=== PATIENT | male | born 1975 | race Caucasian/White ===

== ENCOUNTER 2016-09-18 16:57 | Emergency (ER) | payer SELFPAY ==
[~2016-09-18] VITALS: Ht 175.3 cm; Wt 88.0 kg
[~2016-09-18 16:57] MED LIST: ALTOPREV20 MG PO; AMOXICILLIN 50500 MG PO; AMOXICILLIN875 MG PO; CELEXA 20MG20 MG/TAB PO; CLEOCIN HC150 MG/CAP PO; CLONIDINE0.1 MG PO; DARVOCET N 101 UDTAB PO; DILAUDID 2MG TAB2 MG PO; FLAGYL500 MG PO; GENTAMICIN EYE D5 ML OS; HUMALOG PEN100 U/ML SC; LANTUS100 U/ML; LANTUS100 U/ML SC; NO HOME MEDICATIONS; NORCO 325 MG-51 TAB PO; NOVOLOG 100U100 U/M1 SC; NOVOLOG 100U100 U/M1 SQ; NOVOLOG FLEX100 U/ML SC; OXY IR5 MG PO; OXYCONTIN 10MG10 MG PO; PEN-VEE K500 MG PO; PERCOCET 325 MG1 TA2 PO; PHENERGAN 25 TA25 MG PO; PRILOTC PO; ROBITUSSIN-AC 160 ML PO; ROXICODONE 55 MG/TAB PO; SEPTRA DS 8001 TAB PO; ZOFRAN 4MG T4 MG/TAB PO
[2016-09-18 17:01] VITALS: TEMP 98.1
[2016-09-18] MEDS ORDERED: SEPTRA DS 8001 TAB PO (18:38)
[2016-09-18] MEDS ORDERED: NORCO 325 MG-51 TAB PO (18:38)
[2016-09-18 18:56] VITALS: BP 128/87; PULSE 97
== END 2016-09-18 18:56 | disposition home or self-care (01) ==
LOC: COL.ER 16:57
DX: L02.416 Cutaneous abscess of left lower limb (principal); L03.116 Cellulitis of left lower limb

== ENCOUNTER 2017-04-24 00:21 | Emergency (ER) | payer SELFPAY ==
[~2017-04-24] VITALS: Ht 175.3 cm; Wt 78.4 kg
[2017-04-24 00:31] VITALS: BP 126/74; PULSE 102; TEMP 98.2
[2017-04-24] MEDS ORDERED: CLEOCIN HCL300 MG PO (18:00)
== END 2017-04-24 03:11 | disposition left against medical advice (07) ==
LOC: COL.ER 00:21
DX: R23.4 Changes in skin texture (principal)

== ENCOUNTER 2017-04-24 16:27 | Emergency (ER) | payer SELFPAY ==
[~2017-04-24] VITALS: Ht 175.3 cm; Wt 78.2 kg
[2017-04-24 16:28] VITALS: TEMP 98.1
[2017-04-24 17:48] LABS: BASO % 0.2 % (0.0-2.0); EOS # 0.1 (0.0-0.7); EOS % 0.8 % (0-4.0); GRAN # 4.2 (1.4-6.5); HEMATOCRIT 38.6 % (42.0-52.0); HEMOGLOBIN 13.3 g/dl (13.5-18.0); LYMPH # 1.5 (1.2-3.4); LYMPH % 23.8 % (20.0-51.0); MEAN CELL VOLUME 86 fl (80.0-100.0); MEAN CORPUSCULAR HEMOGLOBIN 30 pg (27.0-31.0); MEAN CORPUSCULAR HGB CONC 35 g/dl (33.0-37.0); MEAN PLATELET VOLUME 10.2 fl (7.4-10.4); MONO # 0.6 (0.1-0.6); PLATELET COUNT 133 K/mm3 (130-400); RED BLOOD COUNT 4.49 M/mm3 (4.20-5.60); REDCELL DISTRIBUTION WIDTH-CV 12.1 % (11.5-14.5); WHITE BLOOD COUNT 6.4 K/mm3 (4.8-10.8)
[2017-04-24] MEDS ORDERED: CLEOCIN HCL300 MG PO (18:00)
[2017-04-24 18:04] LABS: ADJUSTED CALCIUM 9.1 mg/dL (8.4-10.2); ALANINE AMINOTRANSFERASE 25 U/L (21-72); ALKALINE PHOSPHATASE 268 U/L (50-136); ANION GAP 13 mmol/L (7-16); BILIRUBIN,TOTAL 0.7 mg/dL (0.0-1.0); BLOOD UREA NITROGEN 11 mg/dL (9-20); CALCIUM 9.1 mg/dL (8.4-10.2); CARBON DIOXIDE 22 mmol/L (22-30); CHLORIDE 92 mmol/L (98-107); POTASSIUM 4.7 mmol/L (3.4-5.0); SODIUM 127 mmol/L (137-145); TOTAL PROTEIN 7.3 gm/dL (6.4-8.2)
[2017-04-24 18:10] LABS: GLUCOSE 709 mg/dL (74-106)
[2017-04-24 18:24] LABS: C-REACTIVE PROTEIN 12.9 mg/dL (0.0-0.9)
[2017-04-24 22:30] VITALS: BP 115/72; PULSE 87
== END 2017-04-24 22:30 | disposition home or self-care (01) ==
LOC: COL.ER 16:27
PROVIDERS: Physician Assistant
DX: S56.408A Unspecified injury of extensor muscle, fascia and tendon of left little finger at forearm level, initial encounter (principal); E11.65 Type 2 diabetes mellitus with hyperglycemia; L02.512 Cutaneous abscess of left hand; M20.012 Mallet finger of left finger(s); F17.210 Nicotine dependence, cigarettes, uncomplicated; Z79.4 Long term (current) use of insulin; W23.0XXA Caught, crushed, jammed, or pinched between moving objects, initial encounter
CPT/HCPCS: J1815; J7030

== ENCOUNTER 2017-10-17 01:40 | Emergency (ER) | payer SELFPAY ==
[~2017-10-17] VITALS: Ht 175.3 cm; Wt 75.0 kg
[~2017-10-17 01:40] MED LIST changes: +CLEOCIN HCL300 MG PO
[2017-10-17 01:45] VITALS: TEMP 97.7
[2017-10-17 02:32] LABS: BASO % 0.2 % (0.0-2.0); EOS % 0.3 % (0-4.0); GRAN # 6.6 (1.4-6.5); GRAN % 67.6 % (42.2-75.2); HEMATOCRIT 43.4 % (42.0-52.0); HEMOGLOBIN 14.8 g/dl (13.5-18.0); LYMPH # 2.1 (1.2-3.4); LYMPH % 21.7 % (20.0-51.0); MEAN CELL VOLUME 85 fl (80.0-100.0); MEAN CORPUSCULAR HEMOGLOBIN 29 pg (27.0-31.0); MEAN CORPUSCULAR HGB CONC 34 g/dl (33.0-37.0); MEAN PLATELET VOLUME 9.3 fl (7.4-10.4); MONO # 0.9 (0.1-0.6); MONO % 9.7 % (1.7-9.3); PLATELET COUNT 245 K/mm3 (130-400); RED BLOOD COUNT 5.11 M/mm3 (4.20-5.60); REDCELL DISTRIBUTION WIDTH-CV 11.9 % (11.5-14.5)
[2017-10-17 02:42] LABS: ACETONE,SERUM SMALL
[2017-10-17 02:45] LABS: ALANINE AMINOTRANSFERASE 36 U/L (21-72); ALBUMIN 4.4 gm/dL (3.5-5.0); ALKALINE PHOSPHATASE 201 U/L (50-136); ANION GAP 14 mmol/L (7-16); AST,SGOT 18 U/L (15-37); BILIRUBIN,TOTAL 0.7 mg/dL (0.0-1.0); BLOOD UREA NITROGEN 14 mg/dL (9-20); C-REACTIVE PROTEIN 6.6 mg/dL (0.0-0.9); CALCIUM 9.8 mg/dL (8.4-10.2); CARBON DIOXIDE 24 mmol/L (22-30); LIPASE 94 U/L (23-300); POTASSIUM 4.7 mmol/L (3.4-5.0); SODIUM 127 mmol/L (137-145); TOTAL PROTEIN 8.3 gm/dL (6.4-8.2)
[2017-10-17 02:46] LABS: GLUCOSE 617 mg/dL (74-106)
[2017-10-17 02:47] LABS: CHLORIDE 89 mmol/L (98-107)
[2017-10-17 02:57] LABS: ERYTHROCYTE SEDIMENTATION RATE 52 mm/hr (0-15)
[2017-10-17] MEDS ORDERED: DOXYCYCLINE 10100 MG PO (03:49)
[2017-10-17 04:02] VITALS: BP 131/84; PULSE 98
== END 2017-10-17 04:01 | disposition home or self-care (01) ==
LOC: COL.ER 01:40
PROVIDERS: Emergency Medicine
DX: L03.116 Cellulitis of left lower limb (principal); L02.416 Cutaneous abscess of left lower limb; E11.65 Type 2 diabetes mellitus with hyperglycemia; F12.90 Cannabis use, unspecified, uncomplicated; Z79.4 Long term (current) use of insulin
CPT/HCPCS: J1815; J7030

== ENCOUNTER 2018-08-27 11:34 | Inpatient (IN) | payer OTHER ==
[~2018-08-27] VITALS: Ht 175.3 cm; Wt 85.0 kg
[~2018-08-27 11:34] MED LIST changes: +DOXYCYCLINE 10100 MG PO
[2018-08-27 12:29] LABS: BASO % 0.4 % (0.0-2.0); EOS # 0.1 (0.0-0.7); EOS % 0.8 % (0-4.0); GRAN # 5.6 (1.4-6.5); GRAN % 73.9 % (42.2-75.2); HEMATOCRIT 38.5 % (42.0-52.0); HEMOGLOBIN 13.3 g/dl (13.5-18.0); LYMPH # 1.2 (1.2-3.4); LYMPH % 15.3 % (20.0-51.0); MEAN CELL VOLUME 84 fl (80.0-100.0); MEAN CORPUSCULAR HEMOGLOBIN 29 pg (27.0-31.0); MEAN CORPUSCULAR HGB CONC 35 g/dl (33.0-37.0); MEAN PLATELET VOLUME 9.2 fl (7.4-10.4); MONO # 0.7 (0.1-0.6); MONO % 9.3 % (1.7-9.3); PLATELET COUNT 207 K/mm3 (130-400); RED BLOOD COUNT 4.57 M/mm3 (4.20-5.60); REDCELL DISTRIBUTION WIDTH-CV 11.8 % (11.5-14.5)
[2018-08-27 12:42] LABS: ALANINE AMINOTRANSFERASE 6 U/L (21-72); ALBUMIN 3.8 gm/dL (3.5-5.0); ALKALINE PHOSPHATASE 175 U/L (50-136); ANION GAP 11 mmol/L (7-16); AST,SGOT 13 U/L (15-37); BILIRUBIN,TOTAL 0.5 mg/dL (0.0-1.0); BLOOD UREA NITROGEN 12 mg/dL (9-20); C-REACTIVE PROTEIN 8.7 mg/dL (0.0-0.9); CALCIUM 9.1 mg/dL (8.4-10.2); CARBON DIOXIDE 25 mmol/L (22-30); CHLORIDE 90 mmol/L (98-107); CREATININE, serum 0.49 mg/dL (0.66-1.25); POTASSIUM 4.6 mmol/L (3.4-5.0); SODIUM 126 mmol/L (137-145); TOTAL PROTEIN 7.5 gm/dL (6.4-8.2)
[2018-08-27 12:52] LABS: GLUCOSE 605 mg/dL (74-106)
[2018-08-27 12:56] LABS: ACETONE,SERUM NEGATIVE
--- NOTE | 2018-08-27 16:00 | NUR ---
Received patient from ED. Right index finger swollen with drainage. No c/o pain in finger. Complained of headache. Numerous dry scabs on hands and legs.
[2018-08-27 16:52] VITALS: BP 148/93; PULSE 100; TEMP 98.6
[2018-08-27 16:55] VITALS: BP 148/93; PULSE 100; TEMP 98.6
--- NOTE | 2018-08-27 17:30 | NUR ---
Orthopedics saw patient. Wound culture done.
--- NOTE | 2018-08-27 20:05 | NUR ---
Pt. laying in bed watching TV at this time. Pt. is A&OX3, assessment complete. IV to lt. forear patent, IV fluids infusing per orders. Pt. reports headache pain at a 5 on pain scale, will give pain meds per orders. Pt. denies further needs, call light within reach.
[2018-08-27 20:13] VITALS: BP 123/65; PULSE 18; TEMP 99
[2018-08-27 22:19] LABS: TRICYCLIC ANTIDEPRESS URINE NEGATIVE
[2018-08-28] VITALS (7 sets, daily range): BP systolic 108–145; BP diastolic 59–88; PULSE 85–100; TEMP 98.1–99.5
--- NOTE | 2018-08-28 06:08 | NUR ---
Pt. slept off and on through the night. Pt. remains A&OX3. IV to lt. forearm remains patent. Dressing to rt. index finger CDI. Pt. denies pain or other needs at this time. Call light within reach.
[2018-08-28 06:42] LABS: BASO % 0.3 % (0.0-2.0); EOS # 0.1 (0.0-0.7); EOS % 1.7 % (0-4.0); GRAN # 3.5 (1.4-6.5); GRAN % 59.8 % (42.2-75.2); HEMOGLOBIN 12.1 g/dl (13.5-18.0); LYMPH # 1.5 (1.2-3.4); LYMPH % 25.8 % (20.0-51.0); MEAN CELL VOLUME 85 fl (80.0-100.0); MEAN CORPUSCULAR HEMOGLOBIN 29 pg (27.0-31.0); MEAN CORPUSCULAR HGB CONC 35 g/dl (33.0-37.0); MEAN PLATELET VOLUME 8.8 fl (7.4-10.4); MONO # 0.7 (0.1-0.6); MONO % 12.2 % (1.7-9.3); PLATELET COUNT 198 K/mm3 (130-400); RED BLOOD COUNT 4.14 M/mm3 (4.20-5.60); REDCELL DISTRIBUTION WIDTH-CV 11.9 % (11.5-14.5)
[2018-08-28 07:01] LABS: CALCIUM 8.6 mg/dL (8.4-10.2); CREATININE, serum 0.46 mg/dL (0.66-1.25); POTASSIUM 3.8 mmol/L (3.4-5.0)
--- NOTE | 2018-08-28 07:30 | NUR ---
Pt AAOx3, states he is "kind of homeless at the moment". Pt has multiple late stage bruises on finger tips that pt does not disclose how they got there. Call light within reach
--- NOTE | 2018-08-28 09:58 | NUR ---
Pt off unit to MRI. IVFluid paused
--- NOTE | 2018-08-28 16:20 | NUR ---
SW met with patient to discuss discharge planning. Patient reports he is homeless and usually stays with random people most nights but doesnt always have someone to stay with. He is against going to the jail due to there being to many rules. Patient has applied for medicaid and disability. SW talked with him about helping get his meds at discharge but following up at the [facility] clinic for PCP and medication help until he gets medicaid. SW will continue to follow.
--- NOTE | 2018-08-28 21:45 | NUR ---
Pt. laying in bed watching TV. Pt. is A&OX3, assessment complete. IV to lt. forearm patent, IV fluids infusing per orders. Dressing to rt. index finger CDI. Pt. denies pain at this time. Call light within reach.
[2018-08-29] VITALS (8 sets, daily range): BP systolic 112–131; BP diastolic 64–84; PULSE 62–100; TEMP 97.4–99.2
[2018-08-29 05:55] LABS: BASO % 0.4 % (0.0-2.0); EOS # 0.1 (0.0-0.7); GRAN # 2.7 (1.4-6.5); GRAN % 52.9 % (42.2-75.2); LYMPH # 1.6 (1.2-3.4); MEAN CELL VOLUME 84 fl (80.0-100.0); MEAN CORPUSCULAR HEMOGLOBIN 28 pg (27.0-31.0); MEAN CORPUSCULAR HGB CONC 34 g/dl (33.0-37.0); MEAN PLATELET VOLUME 9.1 fl (7.4-10.4); MONO # 0.7 (0.1-0.6); MONO % 13.3 % (1.7-9.3); PLATELET COUNT 202 K/mm3 (130-400); RED BLOOD COUNT 4.23 M/mm3 (4.20-5.60); REDCELL DISTRIBUTION WIDTH-CV 11.8 % (11.5-14.5)
[2018-08-29 06:03] LABS: CALCIUM 8.8 mg/dL (8.4-10.2); CREATININE, serum 0.48 mg/dL (0.66-1.25); POTASSIUM 4.3 mmol/L (3.4-5.0)
--- NOTE | 2018-08-29 06:23 | NUR ---
Pt. slept well through the night. Pt. remains A&OX3. IV to rt. ac patent. Pt. reported pain at a 6 on pain scale this am. Gave pain meds per orders. Pt. denies further needs, call light within reach.
[2018-08-29 06:36] LABS: HEMATOCRIT 35.6 % (42.0-52.0)
--- NOTE | 2018-08-29 08:41 | NUR ---
Pt AAOx3. MD Sravan has seen pt - plan for amputation of finger this afternoon. Pt kept NPO.
--- NOTE | 2018-08-29 11:04 | NUR ---
YENY and YENY student attended clinical rounding. Patient going for amputation of finger today. He will need assistance getting diabetes medications until he can go to [facility] clinic. SW to follow.
--- NOTE | 2018-08-29 15:03 | NUR ---
Pt off unit for surgery
--- NOTE | 2018-08-29 16:08 | NUR ---
Telephone report recieved from YADIEL Markham
--- NOTE | 2018-08-29 21:00 | NUR ---
Patient drowsy, IP=[id number]. Patient asking for a sandwich, reports only eating a hamburger for supper. Is alert, flat affect. Has a dry drsg to right hand, CSM intact. Has scabbed fingertips to both hands, patient states "I plead the 5th" when asked what happened to his fingers. Patient has various scars to hands and legs. Voiding without problem and has BM at this time. IV site to right AC with IVF infusing without redness or swelling.
--- NOTE | 2018-08-30 00:21 | NUR ---
Medicated with [place] 5/325mg 2 tabs at this time for 5/10 pain rating to right hand. Ate sandwich and unsweetened applesauce at HS. IV site without redness or swelling, IV antibiotic infusing without problem.
[2018-08-30 04:30] VITALS: BP 152/89; PULSE 90; TEMP 97.6
--- NOTE | 2018-08-30 06:00 | NUR ---
Patient resting in bed, has right hand elevated on pillow. No complaints of pain offered at this time.
[2018-08-30 06:35] LABS: BASO % 0.3 % (0.0-2.0); EOS # 0.1 (0.0-0.7); EOS % 1.3 % (0-4.0); GRAN # 4.7 (1.4-6.5); GRAN % 66.6 % (42.2-75.2); HEMATOCRIT 39.6 % (42.0-52.0); HEMOGLOBIN 13.3 g/dl (13.5-18.0); LYMPH # 1.6 (1.2-3.4); LYMPH % 22.1 % (20.0-51.0); MEAN CELL VOLUME 86 fl (80.0-100.0); MEAN CORPUSCULAR HEMOGLOBIN 29 pg (27.0-31.0); MEAN CORPUSCULAR HGB CONC 34 g/dl (33.0-37.0); MEAN PLATELET VOLUME 8.8 fl (7.4-10.4); MONO # 0.7 (0.1-0.6); MONO % 9.4 % (1.7-9.3); PLATELET COUNT 269 K/mm3 (130-400); RED BLOOD COUNT 4.61 M/mm3 (4.20-5.60); REDCELL DISTRIBUTION WIDTH-CV 11.9 % (11.5-14.5)
[2018-08-30 06:45] LABS: CREATININE, serum 0.54 mg/dL (0.66-1.25); POTASSIUM 4.3 mmol/L (3.4-5.0)
[2018-08-30 07:45] VITALS: BP 136/82; PULSE 95; TEMP 98.7
--- NOTE | 2018-08-30 08:00 | NUR ---
PATIENT IS DROWSY THIS MORNING AND RESTING IN BED. PATIENT IS EASILY AROUSABLE. PATIENT IS A&O. TACHYCARDIA NOTED, OTHERWISE VSS. BOWEL SOUNDS ACTIVE ALL FOUR QUADRANTS. PATIENT TOLERATING FOOD & LIQUIDS WITHOUT ANY COMPLAINTS OF N/V. POSITIVE PEDAL PULSES EQUAL BILATERALLY. RUE DRESSED WITH A SPLINT AND LUZ MARIA WRAP. RUE DRESSING IS CD&I. CAP REFILL <3 SECONDS. CMS INTACT. IV FLUIDS INFUSING TO RIGHT AC IV VIA PUMP. CALL LIGHT WITHIN REACH. BREAKFAST TRAY ORDERED. PATIENT DENIES ANY OTHER NEEDS AT THIS TIME.
[2018-08-30] MEDS ORDERED: FREESTYLE PREC1 EAC5 MC (09:35)
[2018-08-30] MEDS ORDERED: GLUCOSE TEST ST1 DEV MC (09:35)
[2018-08-30] MEDS ORDERED: HUMULIN 70/3100 U/M1 SQ (09:37)
[2018-08-30] MEDS ORDERED: [UNRECOGNIZED DRUG - OTHER] SQ (09:37)
[2018-08-30] MEDS ORDERED: INSULIN SYRING1 EA12 SQ (09:38)
[2018-08-30] MEDS ORDERED: LANCETS MC (09:39)
--- NOTE | 2018-08-30 11:24 | NUR ---
YENY and YENY student attended clinical rounding. Patient is dc today and reports he has somewhere to stay. talked with him about diabetes medications and he reports he has never used a vial only the pens. Nurse will educate him on how to use one. YENY and pharmacy are working on at least a weeks supplies until his appointment at [facility].
[2018-08-30 11:42] VITALS: BP 135/80; PULSE 93; TEMP 98.2
[2018-08-30] MEDS ORDERED: THE MEDICINE SH1 DE3 MC (12:20)
--- NOTE | 2018-08-30 13:00 | NUR ---
PATIENT'S RIGHT FOREARM IV DC'D PER PENDING DISCHARGE. PATIENT TOLERATED WELL.
[2018-08-30] MEDS ORDERED: LANTUS SOLOS100 U/ML SQ (13:31)
[2018-08-30] MEDS ORDERED: HUMALOG PEN100 U/ML SQ (13:31)
--- NOTE | 2018-08-30 14:23 | NUR ---
DISCHARGE INSTRUCTIONS REVIEWED WITH PATIENT. DIABETIC EDUCATION COMPLETE. PATIENT PERSONAL BELONGINGS GATHERED. PATIENT TAKE TO PERSONAL VEHICLE VIA WHEELCHAIR BY SURGICAL STAFF. PATIENT DISCHARGED.
--- NOTE | 2018-08-30 15:12 | NUR ---
Patient has an appointment at the Diabetes clinic for 3pm today to get samples of insulin to get him through till his appointment [facility] the [facility]. YENY faxed a med voucher to [facility] for a glucometer and test strips for patient. Patient knows the importance of following up with [facility] to get the needed medications. He reports he has somewhere to stay tonight but did not specify. Patient dc today.
== END 2018-08-30 14:23 | disposition home or self-care (01) | DRG 988 ==
LOC: COL.ER 11:34 → SURG 13:22
PROVIDERS: Nurse Practitioner Family; Orthopaedic Surgery; Physician Assistant; ADMIT Family Medicine
PROC: 0X6N0Z1 Detachment at Right Index Finger, High, Open Approach (ICD-10-PCS; principal; 2018-08-29 14:00)
DX: E11.69 Type 2 diabetes mellitus with other specified complication (principal); M86.141 Other acute osteomyelitis, right hand; S62.630A Displaced fracture of distal phalanx of right index finger, initial encounter for closed fracture; W23.1XXA Caught, crushed, jammed, or pinched between stationary objects, initial encounter; E11.65 Type 2 diabetes mellitus with hyperglycemia; B95.61 Methicillin susceptible Staphylococcus aureus infection as the cause of diseases classified elsewhere; L03.011 Cellulitis of right finger; Z59.0 Homelessness; F12.10 Cannabis abuse, uncomplicated; E11.42 Type 2 diabetes mellitus with diabetic polyneuropathy
CPT/HCPCS: 99222-AI; 99231-AI; 99232-AI; 99239; A4216; A9284; J0692; J1815; J2250; J2405; J2704; J3010; J3370; J7030; J7050

== ENCOUNTER 2018-09-02 14:53 | Emergency (ER) | payer OTHER ==
[~2018-09-02] VITALS: Ht 172.7 cm; Wt 77.3 kg
[~2018-09-02 14:53] MED LIST changes: +FREESTYLE PREC1 EAC5 MC; +GLUCOSE TEST ST1 DEV MC; +HUMALOG PEN100 U/ML SQ; +HUMULIN 70/3100 U/M1 SQ; +INSULIN SYRING1 EA12 SQ; +LANCETS MC; +LANTUS SOLOS100 U/ML SQ; +THE MEDICINE SH1 DE3 MC; +[UNRECOGNIZED DRUG - OTHER] SQ
[2018-09-02 15:11] VITALS: BP 147/103; PULSE 106; TEMP 97.9
== END 2018-09-02 16:39 | disposition home or self-care (01) ==
LOC: COL.ER 14:53
DX: Z48.00 Encounter for change or removal of nonsurgical wound dressing (principal); E11.9 Type 2 diabetes mellitus without complications; M86.9 Osteomyelitis, unspecified; F12.90 Cannabis use, unspecified, uncomplicated; Z79.4 Long term (current) use of insulin
CPT/HCPCS: Q4021

== ENCOUNTER 2018-11-04 11:43 | Inpatient (IN) | payer OTHER ==
[~2018-11-04] VITALS: Ht 175.3 cm; Wt 86.3 kg
[2018-11-04] MEDS ORDERED: BACTRIM DS 8001 TAB PO (11:58)
[2018-11-04 12:26] LABS: BASO % 0.4 % (0.0-2.0); EOS # 0.1 (0.0-0.7); EOS % 0.6 % (0-4.0); GRAN % 64.9 % (42.2-75.2); HEMATOCRIT 40.6 % (42.0-52.0); HEMOGLOBIN 13.9 g/dl (13.5-18.0); MEAN CELL VOLUME 83 fl (80.0-100.0); MEAN CORPUSCULAR HEMOGLOBIN 28 pg (27.0-31.0); MEAN CORPUSCULAR HGB CONC 34 g/dl (33.0-37.0); MEAN PLATELET VOLUME 8.9 fl (7.4-10.4); MONO # 1.1 (0.1-0.6); MONO % 11.8 % (1.7-9.3); PLATELET COUNT 187 K/mm3 (130-400); RED BLOOD COUNT 4.91 M/mm3 (4.20-5.60); REDCELL DISTRIBUTION WIDTH-CV 12.2 % (11.5-14.5)
[2018-11-04 12:38] LABS: ALBUMIN 3.8 gm/dL (3.5-5.0); BILIRUBIN,TOTAL 0.5 mg/dL (0.0-1.0); C-REACTIVE PROTEIN 4.4 mg/dL (0.0-0.9); CREATININE, serum 0.56 (0.66-1.25); POTASSIUM 3.9 mmol/L (3.4-5.0); TOTAL PROTEIN 7.6 gm/dL (6.4-8.2)
[2018-11-04 13:11] LABS: ERYTHROCYTE SEDIMENTATION RATE 18 mm/hr (0-15)
--- NOTE | 2018-11-04 15:00 | NUR ---
Patient up to room 349 from ER. Alert and oriented x3. Patient oriented to room. IV fluids on gravity switched to Pump. Denies pain at this time. Left pinky finger with gauze dressing CDI. Denies further needs at this time.
--- NOTE | 2018-11-04 15:59 | NUR ---
Initial assessment complete, patient uncooperative in answering history. Multiple scabs noted to BLE.
[2018-11-04 16:47] VITALS: BP 132/93; PULSE 95; TEMP 99.5
[2018-11-04 16:49] VITALS: BP 132/93; PULSE 95; TEMP 98.9
--- NOTE | 2018-11-04 18:03 | NUR ---
Left VM for Dr. Emanuel for consult on patient.
--- NOTE | 2018-11-04 19:28 | NUR ---
Patient in bed sleeping, respirations even and unlabored. Reported off to personal development coach.
[2018-11-04 19:37] VITALS: BP 145/88; PULSE 96; TEMP 97.9
[2018-11-05] VITALS (13 sets, daily range): BP systolic 94–142; BP diastolic 50–87; PULSE 87–100; TEMP 97.2–98.9
[2018-11-05 06:00] LABS: TRICYCLIC ANTIDEPRESS URINE NEGATIVE
--- NOTE | 2018-11-05 06:32 | NUR ---
PT HAS BEEN SLEEPING THIS SHIFT WAS AROUSABLE IF NEEDED. NO C/O PAIN OR NOTED N/V/D. THIS NURSE ATTEMPTED TO GIVE PT SHOWER PRIOR TO GOING DOWN TO O.R. PT REFUSED STATED THAT HE TOOK A SHOWER BEFORE COMING TO THE HOSPITAL. FLUIDS AND ABX INFUSING WITHOUT ISSUE. PT RECIEVED INSULIN PER SLIDING SCALE THIS SHIFT. NO ISSUES OR CONSERNS VOICED.
--- NOTE | 2018-11-05 06:50 | NUR ---
bedside shift report received from JASMIN Davila
[2018-11-05 06:59] LABS: BASO % 0.4 % (0.0-2.0); EOS # 0.1 (0.0-0.7); EOS % 1.4 % (0-4.0); GRAN # 3.5 (1.4-6.5); GRAN % 62.4 % (42.2-75.2); HEMATOCRIT 38.3 % (42.0-52.0); HEMOGLOBIN 12.7 g/dl (13.5-18.0); LYMPH # 1.3 (1.2-3.4); LYMPH % 23.9 % (20.0-51.0); MEAN CELL VOLUME 84 fl (80.0-100.0); MEAN CORPUSCULAR HEMOGLOBIN 28 pg (27.0-31.0); MEAN CORPUSCULAR HGB CONC 33 g/dl (33.0-37.0); MONO # 0.7 (0.1-0.6); MONO % 11.7 % (1.7-9.3); PLATELET COUNT 153 K/mm3 (130-400); RED BLOOD COUNT 4.55 M/mm3 (4.20-5.60); REDCELL DISTRIBUTION WIDTH-CV 12.1 % (11.5-14.5)
[2018-11-05 07:09] LABS: CALCIUM 8.2 mg/dL (8.4-10.2); CREATININE, serum 0.5 (0.66-1.25); POTASSIUM 3.8 mmol/L (3.4-5.0)
--- NOTE | 2018-11-05 07:20 | NUR ---
Dr Rdz in to see patient, will plan surgery at 0800, full assessment completed, see interventions for further info, has gauze dressing to left 5th finger, also has numerous scab/sore areas on bilateral legs,
--- NOTE | 2018-11-05 07:46 | NUR ---
to surgery per bed
--- NOTE | 2018-11-05 08:50 | NUR ---
returned to room from surgery per bed, awake and alert but sleepy, IV infusing and placed on pump at 125ml/hr, O2 off and O2 sats 99%, has dave wrap dressing to left hand that is CD&I, has sensation and movement to fingers on left hand, denies needs
--- NOTE | 2018-11-05 09:00 | NUR ---
sleeps between checks, provided wawter and tolerates well
--- NOTE | 2018-11-05 09:30 | NUR ---
awake and reqesting something to eat, assisted him with ordering apple pie per his request,
--- NOTE | 2018-11-05 10:00 | NUR ---
had pie and tolerated well, dressing to left hand remains CD&I with good sensation and movement to fingers, speaks to nurse in short quick sentances and requesting to go to sleep with lights off, door and blinds closed,
--- NOTE | 2018-11-05 11:50 | NUR ---
in bed and appears to continue to sleep
--- NOTE | 2018-11-05 12:25 | NUR ---
continues to sleep, left hand remains with good sensation and movement, accucheck 312 and treated with sliding scale insulin
--- NOTE | 2018-11-05 16:47 | NUR ---
continues to sleep, arouses when in the room and providing care and then back to sleep
--- NOTE | 2018-11-05 18:00 | NUR ---
awakened and encouraged to order something to eat, verbalizes understanding
--- NOTE | 2018-11-05 19:06 | NUR ---
bedside shift report given to JASMIN Alvarez, IV has been pulled out by patient, reported to Kim
--- NOTE | 2018-11-05 21:07 | NUR ---
PT REPORTS 6/10 PAIN IN LEFT HAND. PRN MEDS GIVEN. A+OX4. IV STARTED IN RIGHT HAND, FLUSHES WELL. CMS CHECKS WNL. NO NEEDS AT THIS TIME
--- NOTE | 2018-11-05 22:58 | NUR ---
pt A+Ox4. reports pain 6/10 in left hand- prn meds given, pt is now sleeping. CMS checks unchanged. IV fluids running at 60 ml/hr. no needs at this time. call light in reach
--- NOTE | 2018-11-06 03:40 | NUR ---
pt resting in bed at this time. reported 6/10 pain during night prn meds given. pt CMS checks WNL.IV fluids running at 60ML/HR. no needs at this time. call light in reach
[2018-11-06 05:07] VITALS: BP 134/84; PULSE 90; TEMP 97.5
[2018-11-06 06:29] LABS: BASO % 0.4 % (0.0-2.0); EOS # 0.1 (0.0-0.7); GRAN # 2.6 (1.4-6.5); HEMATOCRIT 37.9 % (42.0-52.0); HEMOGLOBIN 12.7 g/dl (13.5-18.0); LYMPH # 1.5 (1.2-3.4); LYMPH % 30.9 % (20.0-51.0); MEAN CELL VOLUME 84 fl (80.0-100.0); MEAN CORPUSCULAR HEMOGLOBIN 28 pg (27.0-31.0); MEAN CORPUSCULAR HGB CONC 34 g/dl (33.0-37.0); MEAN PLATELET VOLUME 9.4 fl (7.4-10.4); MONO # 0.6 (0.1-0.6); MONO % 12.5 % (1.7-9.3); PLATELET COUNT 182 K/mm3 (130-400); RED BLOOD COUNT 4.49 M/mm3 (4.20-5.60); REDCELL DISTRIBUTION WIDTH-CV 12.3 % (11.5-14.5)
[2018-11-06 06:40] LABS: CALCIUM 8.6 mg/dL (8.4-10.2); CREATININE, serum 0.56 (0.66-1.25); POTASSIUM 3.8 mmol/L (3.4-5.0)
[2018-11-06 07:57] VITALS: BP 121/87; PULSE 93; TEMP 98.4
--- NOTE | 2018-11-06 08:17 | NUR ---
pt had an uneventful night. Insuliin given throughout night as ordered. CMS check WNL. pt refused IS and SCD. no needs at this time. report given to JASMIN Gómez
--- NOTE | 2018-11-06 10:10 | NUR ---
SW attended clinical rounds to discuss discharge planning. Patient reports he is "pretty much homeless" and plans to stay with a friend when he is discharged. Patient does not have a PCP because he cannot afford one. SW informed patient that the [facility] or [facility] will see patient's with no insurance or low income. Patient is agreeable to seeing a doctor at one of those clinics. SW inquired if patient has had any issues obtaining medications. Patient reports he does but the health department has been helping him. SW also inquired if patient has ever applied for medicaid in the past. Patient reports he has but doesn't contact them in time to finish the application. SW reported she will contact the financial counselor for medicaid lloyd and financial assistance lloyd. SW will continue to follow and assist with any discharge needs.
[2018-11-06 12:22] VITALS: BP 96/58; PULSE 86; TEMP 97.8
[2018-11-06 16:00] VITALS: BP 125/67; PULSE 93; TEMP 97.5
--- NOTE | 2018-11-06 18:00 | NUR ---
Patient has been sleeping all day. Minimal complaint of pain. His dressing to his left hand has remained C/D/I. He is eating and drinking without nausea. His blood sugars have up and down today. This morning they were high and at lunch time it was 66. Explained that when he ate lunch we could given his insulin but he refused. At supper time his glucose was back up. He stated he doesn't want to stay longer than one more day because he does not feel like he needs to be in the hospital. Discussed what his plans were for getting his medications at discharge, he said he was not sure what to do about getting them filled. No other changes at this time. Call light within reach.
--- NOTE | 2018-11-06 20:00 | NUR ---
Patient in bed, flat affect. Is alert and oriented. Has dressing to left hand D/I. Has a SL to right hand without redness or swelling. Denies pain, has numbness of hands and feet on routine basis. Monitoring blood sugars every 4 hours. Voiding in toilet.
[2018-11-06 20:07] VITALS: BP 117/59; PULSE 98; TEMP 99.9
[2018-11-07 00:07] VITALS: BP 109/46; PULSE 98; TEMP 98.2
[2018-11-07 04:03] VITALS: BP 107/60; PULSE 95; TEMP 98.2
--- NOTE | 2018-11-07 05:00 | NUR ---
Patient denies pain, dressing remains intact to left hand. IV antibiotic infusing to right hand without redness or swelling. Flat affect.
[2018-11-07 06:18] LABS: HEMOGLOBIN 12.4 g/dl (13.5-18.0)
[2018-11-07 06:25] LABS: HEMATOCRIT 36.9 % (42.0-52.0)
--- NOTE | 2018-11-07 07:27 | NUR ---
Report from Alis CASTELLANOS>
[2018-11-07 08:11] VITALS: BP 120/75; PULSE 92; TEMP 98
--- NOTE | 2018-11-07 09:40 | NUR ---
PT RESTING IN BED. DRESSING TO LEFT HAND CDI WITH LUZ MARIA WRAP SPLINT OVER HAND AND WRIST LEFT SIDE.
[2018-11-07] MEDS ORDERED: CEPHALEXIN500 M1 PO (10:38)
[2018-11-07] MEDS ORDERED: LANTUS SOLOS100 U/ML SQ (10:38)
--- NOTE | 2018-11-07 11:24 | NUR ---
SW attended clinical rounds to discuss discharge. Patient will discharge later this afternoon. Doctor voiced concern about patient taking his insulin. Patient reports he has some insulin left at home and he gets help with obtaining insulin through [facility] and the health department. SW inquired if patient would require assistance obtaining the prescribed antibiotic. YENY informed patient of [employer] for future prescriptions until he obtains insurance. YENY also provided a coupon from [employer] for his antibiotic.
--- NOTE | 2018-11-07 15:05 | NUR ---
DISCHARGE INSTRUCTIONS REVIEWED WITH PT. PT VERBALIZED UNDERSTANDING. PT TAKEN TO FRONT AMBULATORY.
== END 2018-11-07 15:20 | disposition home or self-care (01) | DRG 988 ==
LOC: COL.ER 11:43 → SURG 13:39
PROVIDERS: Emergency Medicine; Orthopaedic Surgery; Physician Assistant; ADMIT Internal Medicine
PROC: 0X6W0Z3 Detachment at Left Little Finger, Low, Open Approach (ICD-10-PCS; principal; 2018-11-05 08:30)
DX: E11.69 Type 2 diabetes mellitus with other specified complication (principal); M86.142 Other acute osteomyelitis, left hand; E87.1 Hypo-osmolality and hyponatremia; K86.1 Other chronic pancreatitis; K86.3 Pseudocyst of pancreas; B95.61 Methicillin susceptible Staphylococcus aureus infection as the cause of diseases classified elsewhere; E11.65 Type 2 diabetes mellitus with hyperglycemia; E11.622 Type 2 diabetes mellitus with other skin ulcer; L98.491 Non-pressure chronic ulcer of skin of other sites limited to breakdown of skin; Z79.4 Long term (current) use of insulin; Z89.021 Acquired absence of right finger(s); Z59.0 Homelessness; Z91.19 Patient's noncompliance with other medical treatment and regimen; F15.10 Other stimulant abuse, uncomplicated; F12.10 Cannabis abuse, uncomplicated
CPT/HCPCS: 99223-AI; 99232-AI; 99239; A9284; J0690; J0692; J1170; J1815; J1885; J2270; J2405; J2704; J3370; J7030; J7050

== ENCOUNTER 2018-11-22 15:03 | Emergency (ER) | payer OTHER ==
[~2018-11-22] VITALS: Ht 175.3 cm; Wt 81.8 kg
[~2018-11-22 15:03] MED LIST changes: +BACTRIM DS 8001 TAB PO; +CEPHALEXIN500 M1 PO
[2018-11-22 15:09] VITALS: BP 98/57; PULSE 99; TEMP 98.1
== END 2018-11-22 15:53 | disposition home or self-care (01) ==
LOC: COL.ER 15:03
DX: Z48.00 Encounter for change or removal of nonsurgical wound dressing (principal); F12.90 Cannabis use, unspecified, uncomplicated; E11.9 Type 2 diabetes mellitus without complications; Z79.4 Long term (current) use of insulin

== ENCOUNTER 2018-12-05 21:52 | Emergency (ER) | payer OTHER ==
[2018-12-05 23:02] VITALS: BP 138/79; PULSE 80
== END 2018-12-05 23:02 | disposition home or self-care (01) ==
LOC: COL.ER 21:52
DX: S61.219D Laceration without foreign body of unspecified finger without damage to nail, subsequent encounter (principal)

== ENCOUNTER 2018-12-18 23:12 | Emergency (ER) | payer OTHER ==
[~2018-12-18] VITALS: Ht 175.3 cm; Wt 84.1 kg
[2018-12-18 23:15] VITALS: BP 127/88; TEMP 97
[2018-12-18] MEDS ORDERED: LANTUS SOLOS100 U/ML (23:40)
[2018-12-18] MEDS ORDERED: INSULIN HUMA100 U/ML (23:41)
[2018-12-19] MEDS ORDERED: DOXYCYCLINE 10100 MG PO (00:07)
[2018-12-19 00:31] VITALS: PULSE 118
== END 2018-12-19 00:31 | disposition home or self-care (01) ==
LOC: COL.ER 23:12
DX: S60.011A Contusion of right thumb without damage to nail, initial encounter (principal); E11.9 Type 2 diabetes mellitus without complications; F12.90 Cannabis use, unspecified, uncomplicated; Z79.4 Long term (current) use of insulin; Z89.021 Acquired absence of right finger(s); Z89.022 Acquired absence of left finger(s); Z87.2 Personal history of diseases of the skin and subcutaneous tissue; W23.0XXA Caught, crushed, jammed, or pinched between moving objects, initial encounter

== ENCOUNTER 2018-12-31 16:21 | Emergency (ER) | payer OTHER ==
[~2018-12-31] VITALS: Ht 175.3 cm; Wt 81.8 kg
[~2018-12-31 16:21] MED LIST changes: +INSULIN HUMA100 U/ML; +LANTUS SOLOS100 U/ML
[2018-12-31 16:28] VITALS: TEMP 98.9
[2018-12-31 17:12] LABS: BASO % 0.4 % (0.0-2.0); EOS # 0.1 (0.0-0.7); EOS % 1.3 % (0-4.0); GRAN # 3.1 (1.4-6.5); GRAN % 58.4 % (42.2-75.2); HEMATOCRIT 43.7 % (42.0-52.0); LYMPH # 1.7 (1.2-3.4); LYMPH % 31.8 % (20.0-51.0); MEAN CELL VOLUME 82 fl (80.0-100.0); MEAN CORPUSCULAR HEMOGLOBIN 28 pg (27.0-31.0); MEAN CORPUSCULAR HGB CONC 34 g/dl (33.0-37.0); MEAN PLATELET VOLUME 9.8 fl (7.4-10.4); MONO # 0.4 (0.1-0.6); MONO % 7.9 % (1.7-9.3); PLATELET COUNT 149 K/mm3 (130-400); RED BLOOD COUNT 5.31 M/mm3 (4.20-5.60); REDCELL DISTRIBUTION WIDTH-CV 12.3 % (11.5-14.5)
[2018-12-31 17:21] LABS: ALANINE AMINOTRANSFERASE 10 U/L (21-72); ALBUMIN 3.8 gm/dL (3.5-5.0); ALKALINE PHOSPHATASE 125 U/L (50-136); ANION GAP 10 mmol/L (7-16); AST,SGOT 14 U/L (15-37); BILIRUBIN,TOTAL 0.7 mg/dL (0.0-1.0); BLOOD UREA NITROGEN 12 mg/dL (9-20); C-REACTIVE PROTEIN 0.8 mg/dL (0.0-0.9); CARBON DIOXIDE 24 mmol/L (22-30); CHLORIDE 103 mmol/L (98-107); CREATININE, serum 0.61 (0.66-1.25); GLUCOSE 309 mg/dL (74-106); LIPASE 100 U/L (23-300); POTASSIUM 4.3 mmol/L (3.4-5.0); SODIUM 136 mmol/L (137-145); TOTAL PROTEIN 7.4 gm/dL (6.4-8.2)
[2018-12-31 17:33] LABS: TROPONIN-I < 0.012 ng/mL (0.000-0.035)
[2018-12-31 17:39] LABS: ACETONE,SERUM NEGATIVE
[2018-12-31 19:13] LABS: COLLECTION METHOD CLEAN CATCH
[2018-12-31 19:21] LABS: MUCOUS Present /lpf; PH 6 (5-8); SQUAMOUS EPITHELIAL 0-2 /hpf; URINE APPEARANCE Clear; URINE BACTERIA None Seen /hpf; URINE BILIRUBIN Negative (NEGATIVE); URINE BLOOD Negative (NEGATIVE); URINE COLOR Yellow; URINE GLUCOSE 3+ (NEGATIVE); URINE KETONE Negative (NEGATIVE); URINE LEUKOCYTE ESTERASE Negative (NEGATIVE); URINE NITRATE Negative (NEGATIVE); URINE PROTEIN(semi-quant) Negative (NEGATIVE); URINE RBC 0-2 /hpf; URINE UROBILINOGEN Negative (NEGATIVE)
[2018-12-31 19:54] VITALS: BP 128/83; PULSE 84
== END 2018-12-31 19:56 | disposition home or self-care (01) ==
LOC: COL.ER 16:21
PROVIDERS: Emergency Medicine
DX: K38.8 Other specified diseases of appendix (principal); R10.12 Left upper quadrant pain; E10.9 Type 1 diabetes mellitus without complications; F12.90 Cannabis use, unspecified, uncomplicated
CPT/HCPCS: J1170; J2405; J7030; Q9967

== ENCOUNTER 2019-01-30 16:40 | Emergency (ER) | payer OTHER ==
[~2019-01-30] VITALS: Ht 175.3 cm; Wt 81.8 kg
[2019-01-30 16:57] VITALS: TEMP 98.6
[2019-01-30 18:56] LABS: BASO % 0.6 % (0.0-2.0); EOS # 0.1 (0.0-0.7); EOS % 1.8 % (0-4.0); GRAN # 4.2 (1.4-6.5); HEMATOCRIT 40.4 % (42.0-52.0); LYMPH % 28.1 % (20.0-51.0); MEAN CELL VOLUME 84 fl (80.0-100.0); MEAN CORPUSCULAR HEMOGLOBIN 29 pg (27.0-31.0); MEAN CORPUSCULAR HGB CONC 35 g/dl (33.0-37.0); MEAN PLATELET VOLUME 9.5 fl (7.4-10.4); MONO # 0.7 (0.1-0.6); MONO % 10.2 % (1.7-9.3); PLATELET COUNT 169 K/mm3 (130-400); RED BLOOD COUNT 4.84 M/mm3 (4.20-5.60); REDCELL DISTRIBUTION WIDTH-CV 13.1 % (11.5-14.5)
[2019-01-30 19:13] LABS: ALANINE AMINOTRANSFERASE 22 U/L (21-72); ALBUMIN 4.1 gm/dL (3.5-5.0); ALKALINE PHOSPHATASE 143 U/L (50-136); ANION GAP 12 mmol/L (7-16); AST,SGOT 29 U/L (15-37); BILIRUBIN,TOTAL 0.7 mg/dL (0.0-1.0); BLOOD UREA NITROGEN 25 mg/dL (9-20); C-REACTIVE PROTEIN 1.3 mg/dL (0.0-0.9); CALCIUM 9.6 mg/dL (8.4-10.2); CARBON DIOXIDE 21 mmol/L (22-30); CHLORIDE 105 mmol/L (98-107); CREATINE KINASE 689 U/L (55-170); CREATININE, serum 0.59 (0.66-1.25); GLUCOSE 320 mg/dL (74-106); POTASSIUM 3.9 mmol/L (3.4-5.0); SODIUM 137 mmol/L (137-145); TOTAL PROTEIN 8.1 gm/dL (6.4-8.2)
[2019-01-30 19:31] LABS: TROPONIN-I < 0.012 ng/mL (0.000-0.035)
[2019-01-30] MEDS ORDERED: DOXYCYCLINE 10100 MG PO (20:15)
[2019-01-30 21:39] VITALS: BP 120/85; PULSE 88
== END 2019-01-30 21:48 | disposition home or self-care (01) ==
LOC: COL.ER 16:40
PROVIDERS: Emergency Medicine
DX: T67.5XXA Heat exhaustion, unspecified, initial encounter (principal); E10.9 Type 1 diabetes mellitus without complications; R21 Rash and other nonspecific skin eruption; Z87.19 Personal history of other diseases of the digestive system; X32.XXXA Exposure to sunlight, initial encounter; Y93.89 Activity, other specified
CPT/HCPCS: J1815; J7030

== ENCOUNTER 2019-02-13 15:24 | Emergency (ER) | payer OTHER ==
[~2019-02-13] VITALS: Ht 175.3 cm; Wt 84.1 kg
[2019-02-13 15:30] VITALS: TEMP 98
[2019-02-13 16:32] LABS: BASO # 0.1 (0.0-0.2); BASO % 0.5 % (0.0-2.0); EOS # 0.1 (0.0-0.7); EOS % 0.6 % (0-4.0); GRAN # 5.2 (1.4-6.5); GRAN % 53.4 % (42.2-75.2); HEMOGLOBIN 15.8 g/dl (13.5-18.0); LYMPH # 3.3 (1.2-3.4); LYMPH % 34.4 % (20.0-51.0); MEAN CELL VOLUME 81 fl (80.0-100.0); MEAN CORPUSCULAR HEMOGLOBIN 28 pg (27.0-31.0); MEAN CORPUSCULAR HGB CONC 35 g/dl (33.0-37.0); MEAN PLATELET VOLUME 9.5 fl (7.4-10.4); MONO # 1.1 (0.1-0.6); MONO % 10.8 % (1.7-9.3); PLATELET COUNT 237 K/mm3 (130-400); RED BLOOD COUNT 5.57 M/mm3 (4.20-5.60)
[2019-02-13 16:46] LABS: ALANINE AMINOTRANSFERASE 15 U/L (21-72); ALBUMIN 4.9 gm/dL (3.5-5.0); ALKALINE PHOSPHATASE 110 U/L (50-136); ANION GAP 17 mmol/L (7-16); AST,SGOT 40 U/L (15-37); BILIRUBIN,TOTAL 1.4 mg/dL (0.0-1.0); BLOOD UREA NITROGEN 35 mg/dL (9-20); C-REACTIVE PROTEIN 0.6 mg/dL (0.0-0.9); CALCIUM 11.1 mg/dL (8.4-10.2); CARBON DIOXIDE 17 mmol/L (22-30); CHLORIDE 102 mmol/L (98-107); CREATININE, serum 1.06 (0.66-1.25); GLUCOSE 201 mg/dL (74-106); POTASSIUM 3.8 mmol/L (3.4-5.0); SODIUM 136 mmol/L (137-145)
--- NOTE | 2019-02-13 16:56 | NUR ---
SW was called by ED nurse because patient requested to speak with a psych social worker. YENY met with patient and he inquired if SW could help him obtain his hospital records that need to be submitted to Medicaid for disability approval. SW reported that he would have to contact the medical records department to request those records. SW inrquired if patient would like SW to contact the emergency [facility] for bed availability. Patient declined. SW also inquired if patient uses [employer] for medication coupons because he does not have insurance. Patient reported he has never heard of that program. SW provided a [employer] card. SW reported back to nurse.
[2019-02-13 17:05] LABS: ACETONE,SERUM NEGATIVE
[2019-02-13 18:17] VITALS: BP 112/69; PULSE 108
== END 2019-02-13 18:24 | disposition home or self-care (01) ==
LOC: COL.ER 15:24
PROVIDERS: Emergency Medicine
DX: S61.211A Laceration without foreign body of left index finger without damage to nail, initial encounter (principal); E11.9 Type 2 diabetes mellitus without complications; E86.0 Dehydration; Z79.4 Long term (current) use of insulin; W26.8XXA Contact with other sharp object(s), not elsewhere classified, initial encounter
CPT/HCPCS: J7030

== ENCOUNTER 2019-02-21 16:33 | Emergency (ER) | payer OTHER ==
[~2019-02-21] VITALS: Ht 175.3 cm; Wt 81.8 kg
[2019-02-21 16:42] VITALS: TEMP 97.7
[2019-02-21 17:58] LABS: BASO % 0.5 % (0.0-2.0); EOS # 0.1 (0.0-0.7); EOS % 1.7 % (0-4.0); GRAN # 3.5 (1.4-6.5); GRAN % 55.1 % (42.2-75.2); HEMATOCRIT 38.5 % (42.0-52.0); HEMOGLOBIN 13.2 g/dl (13.5-18.0); LYMPH # 2.1 (1.2-3.4); LYMPH % 33.6 % (20.0-51.0); MEAN CELL VOLUME 84 fl (80.0-100.0); MEAN CORPUSCULAR HEMOGLOBIN 29 pg (27.0-31.0); MEAN CORPUSCULAR HGB CONC 34 g/dl (33.0-37.0); MEAN PLATELET VOLUME 9.6 fl (7.4-10.4); MONO # 0.6 (0.1-0.6); MONO % 8.9 % (1.7-9.3); PLATELET COUNT 156 K/mm3 (130-400); RED BLOOD COUNT 4.61 M/mm3 (4.20-5.60); REDCELL DISTRIBUTION WIDTH-CV 12.8 % (11.5-14.5)
[2019-02-21 18:03] LABS: ALBUMIN 3.9 gm/dL (3.5-5.0); BILIRUBIN,TOTAL 0.6 mg/dL (0.0-1.0); CALCIUM 9.3 mg/dL (8.4-10.2); CREATININE, serum 0.5 (0.66-1.25); POTASSIUM 4.1 mmol/L (3.4-5.0); TOTAL PROTEIN 7.3 gm/dL (6.4-8.2)
[2019-02-21] MEDS ORDERED: LANTUS SOLOS100 U/ML SQ (18:33)
[2019-02-21] MEDS ORDERED: CEPHALEXIN500 M1 PO (18:33)
[2019-02-21 18:56] VITALS: BP 144/98; PULSE 92
== END 2019-02-21 18:58 | disposition home or self-care (01) ==
LOC: COL.ER 16:33
PROVIDERS: Emergency Medicine
DX: S60.522A Blister (nonthermal) of left hand, initial encounter (principal); E11.65 Type 2 diabetes mellitus with hyperglycemia; F12.90 Cannabis use, unspecified, uncomplicated; Z79.4 Long term (current) use of insulin; X58.XXXA Exposure to other specified factors, initial encounter
CPT/HCPCS: J1815; J7030

== ENCOUNTER 2019-03-27 20:55 | Emergency (ER) | payer MEDICAID ==
[~2019-03-27] VITALS: Ht 172.7 cm; Wt 81.8 kg
[2019-03-27 21:08] VITALS: TEMP 98.6
[2019-03-27] MEDS ORDERED: CEPHALEXIN500 M1 PO (23:58)
[2019-03-28 00:25] VITALS: BP 137/87; PULSE 93
[2019-03-29] MEDS ORDERED: DOXYCYCLINE 10100 MG PO (11:54)
== END 2019-03-28 00:25 | disposition home or self-care (01) ==
LOC: COL.ER 20:55
DX: S90.112A Contusion of left great toe without damage to nail, initial encounter (principal); S60.051A Contusion of right little finger without damage to nail, initial encounter; S60.011A Contusion of right thumb without damage to nail, initial encounter; E11.9 Type 2 diabetes mellitus without complications; F17.210 Nicotine dependence, cigarettes, uncomplicated; F12.10 Cannabis abuse, uncomplicated; Z79.4 Long term (current) use of insulin; Z87.19 Personal history of other diseases of the digestive system; Z91.14 Patient's other noncompliance with medication regimen

== ENCOUNTER 2019-03-29 10:50 | Emergency (ER) | payer MEDICAID ==
[~2019-03-29] VITALS: Ht 172.7 cm; Wt 81.8 kg
[2019-03-29] MEDS ORDERED: DOXYCYCLINE 10100 MG PO (11:54)
[2019-03-29 12:00] VITALS: BP 116/86; PULSE 102; TEMP 97.8
== END 2019-03-29 12:05 | disposition home or self-care (01) ==
LOC: COL.ER 10:50
DX: L03.011 Cellulitis of right finger (principal); E10.9 Type 1 diabetes mellitus without complications; F19.10 Other psychoactive substance abuse, uncomplicated; F12.90 Cannabis use, unspecified, uncomplicated; F15.10 Other stimulant abuse, uncomplicated; Z91.14 Patient's other noncompliance with medication regimen

== ENCOUNTER 2019-03-29 16:21 | Inpatient (IN) | payer MEDICAID ==
[~2019-03-29] VITALS: Ht 175.3 cm; Wt 83.3 kg
[2019-03-29 18:56] LABS: BASO % 0.3 % (0.0-2.0); EOS # 0.1 (0.0-0.7); EOS % 1.3 % (0-4.0); GRAN # 4.2 (1.4-6.5); GRAN % 63.1 % (42.2-75.2); HEMATOCRIT 38.7 % (42.0-52.0); HEMOGLOBIN 13.2 g/dl (13.5-18.0); LYMPH # 1.7 (1.2-3.4); LYMPH % 25.1 % (20.0-51.0); MEAN CELL VOLUME 86 fl (80.0-100.0); MEAN CORPUSCULAR HEMOGLOBIN 29 pg (27.0-31.0); MEAN CORPUSCULAR HGB CONC 34 g/dl (33.0-37.0); MEAN PLATELET VOLUME 9.1 fl (7.4-10.4); MONO # 0.7 (0.1-0.6); MONO % 10.1 % (1.7-9.3); PLATELET COUNT 199 K/mm3 (130-400); RED BLOOD COUNT 4.51 M/mm3 (4.20-5.60); REDCELL DISTRIBUTION WIDTH-CV 12.4 % (11.5-14.5)
[2019-03-29 19:06] LABS: ALBUMIN 4.1 gm/dL (3.5-5.0); BILIRUBIN,TOTAL 0.4 mg/dL (0.0-1.0); CALCIUM 8.9 mg/dL (8.4-10.2); CREATININE, serum 0.49 (0.66-1.25); TOTAL PROTEIN 7.8 gm/dL (6.4-8.2)
[2019-03-29 19:18] LABS: ERYTHROCYTE SEDIMENTATION RATE 40 mm/hr (0-15)
[2019-03-29 19:25] LABS: C-REACTIVE PROTEIN 5.8 mg/dL (0.0-0.9)
[2019-03-29 21:15] VITALS: BP 149/94; PULSE 104; TEMP 98.1
[2019-03-30] VITALS (8 sets, daily range): BP systolic 101–149; BP diastolic 47–94; PULSE 80–104; TEMP 97.4–98.1
[2019-03-30 06:33] LABS: CALCIUM 8.4 mg/dL (8.4-10.2); CREATININE, serum 0.45 (0.66-1.25); POTASSIUM 3.8 mmol/L (3.4-5.0)
[2019-03-30 06:51] LABS: BASO % 0.4 % (0.0-2.0); EOS # 0.1 (0.0-0.7); EOS % 1.7 % (0-4.0); GRAN # 2.8 (1.4-6.5); HEMOGLOBIN 11.9 g/dl (13.5-18.0); LYMPH # 1.7 (1.2-3.4); LYMPH % 31.9 % (20.0-51.0); MEAN CELL VOLUME 87 fl (80.0-100.0); MEAN CORPUSCULAR HEMOGLOBIN 30 pg (27.0-31.0); MEAN CORPUSCULAR HGB CONC 34 g/dl (33.0-37.0); MEAN PLATELET VOLUME 9.4 fl (7.4-10.4); MONO # 0.7 (0.1-0.6); MONO % 12.6 % (1.7-9.3); PLATELET COUNT 162 K/mm3 (130-400); RED BLOOD COUNT 4.04 M/mm3 (4.20-5.60); REDCELL DISTRIBUTION WIDTH-CV 12.3 % (11.5-14.5)
[2019-03-30 06:54] LABS: HEMATOCRIT 35.3 % (42.0-52.0)
[2019-03-31 05:14] VITALS: BP 107/67; PULSE 75; TEMP 98.2
[2019-03-31 08:13] LABS: BASO % 0.5 % (0.0-2.0); EOS # 0.1 (0.0-0.7); EOS % 2.8 % (0-4.0); GRAN # 1.9 (1.4-6.5); GRAN % 48.5 % (42.2-75.2); HEMATOCRIT 38.5 % (42.0-52.0); HEMOGLOBIN 12.6 g/dl (13.5-18.0); LYMPH # 1.5 (1.2-3.4); LYMPH % 38.3 % (20.0-51.0); MEAN CELL VOLUME 88 fl (80.0-100.0); MEAN CORPUSCULAR HEMOGLOBIN 29 pg (27.0-31.0); MEAN CORPUSCULAR HGB CONC 33 g/dl (33.0-37.0); MEAN PLATELET VOLUME 9.1 fl (7.4-10.4); MONO # 0.4 (0.1-0.6); MONO % 9.6 % (1.7-9.3); PLATELET COUNT 181 K/mm3 (130-400); RED BLOOD COUNT 4.39 M/mm3 (4.20-5.60); REDCELL DISTRIBUTION WIDTH-CV 12.1 % (11.5-14.5)
[2019-03-31 08:28] LABS: CALCIUM 8.2 mg/dL (8.4-10.2); CREATININE, serum 0.49 (0.66-1.25)
[2019-03-31 09:27] VITALS: BP 109/68; PULSE 77; TEMP 98.3
[2019-03-31 12:29] VITALS: BP 133/80; PULSE 86; TEMP 97.4
[2019-03-31 16:52] VITALS: BP 117/76; PULSE 80; TEMP 97.8
[2019-03-31 19:54] VITALS: BP 125/81; PULSE 86; TEMP 97.8
[2019-04-01 00:12] VITALS: BP 101/70; PULSE 90; TEMP 98
[2019-04-01 04:00] VITALS: BP 97/54; PULSE 83; TEMP 97.7
[2019-04-01 08:10] LABS: BASO % 0.3 % (0.0-2.0); EOS # 0.1 (0.0-0.7); EOS % 1.7 % (0-4.0); GRAN # 3.5 (1.4-6.5); GRAN % 60.4 % (42.2-75.2); HEMATOCRIT 38.1 % (42.0-52.0); HEMOGLOBIN 12.6 g/dl (13.5-18.0); LYMPH # 1.7 (1.2-3.4); LYMPH % 29.4 % (20.0-51.0); MEAN CELL VOLUME 87 fl (80.0-100.0); MEAN CORPUSCULAR HEMOGLOBIN 29 pg (27.0-31.0); MEAN CORPUSCULAR HGB CONC 33 g/dl (33.0-37.0); MEAN PLATELET VOLUME 8.7 fl (7.4-10.4); MONO # 0.5 (0.1-0.6); PLATELET COUNT 193 K/mm3 (130-400); RED BLOOD COUNT 4.39 M/mm3 (4.20-5.60); REDCELL DISTRIBUTION WIDTH-CV 12.1 % (11.5-14.5)
[2019-04-01 08:17] LABS: CALCIUM 8.4 mg/dL (8.4-10.2); CREATININE, serum 0.49 (0.66-1.25)
[2019-04-01 09:15] VITALS: BP 138/87; PULSE 79; TEMP 97.7
[2019-04-01 13:03] VITALS: BP 140/81; PULSE 79; TEMP 97.8
== END 2019-04-01 13:15 | disposition home or self-care (01) | DRG 603 ==
LOC: COL.ER 16:21 → SURG 20:04
PROVIDERS: Emergency Medicine; Nurse Practitioner Family; Physician Assistant; ADMIT Hospitalist
DX: L03.011 Cellulitis of right finger (principal); E11.42 Type 2 diabetes mellitus with diabetic polyneuropathy; B35.1 Tinea unguium; Z59.0 Homelessness; Z79.4 Long term (current) use of insulin; Z91.14 Patient's other noncompliance with medication regimen; Z86.14 Personal history of Methicillin resistant Staphylococcus aureus infection; Z89.021 Acquired absence of right finger(s); Z89.022 Acquired absence of left finger(s)
CPT/HCPCS: 99222-AI; 99232-AI; 99239; J1815; J3370; J7030; J7050

== ENCOUNTER 2019-04-03 17:28 | Emergency (ER) | payer MEDICAID ==
[~2019-04-03] VITALS: Ht 175.3 cm; Wt 81.8 kg
[2019-04-03 17:38] VITALS: BP 128/79; TEMP 97.7
[2019-04-03] MEDS ORDERED: NORCO 325 MG-51 TAB PO (19:36)
[2019-04-03 20:25] VITALS: PULSE 94
== END 2019-04-03 20:25 | disposition home or self-care (01) ==
LOC: COL.ER 17:28
DX: L08.9 Local infection of the skin and subcutaneous tissue, unspecified (principal); M79.645 Pain in left finger(s)

== ENCOUNTER 2019-04-09 15:14 | Emergency (ER) | payer MEDICAID ==
[~2019-04-09] VITALS: Ht 175.3 cm; Wt 81.8 kg
[2019-04-09 15:26] VITALS: BP 144/91; TEMP 97.9
[2019-04-09 17:34] LABS: ALBUMIN 4.2 gm/dL (3.5-5.0); BILIRUBIN,TOTAL 0.5 mg/dL (0.0-1.0); C-REACTIVE PROTEIN 0.9 mg/dL (0.0-0.9); CALCIUM 9.2 mg/dL (8.4-10.2); CREATININE, serum 0.59 (0.66-1.25); POTASSIUM 4.3 mmol/L (3.4-5.0); TOTAL PROTEIN 7.9 gm/dL (6.4-8.2)
[2019-04-09 17:36] LABS: BASO # 0.1 (0.0-0.2); BASO % 0.9 % (0.0-2.0); EOS # 0.1 (0.0-0.7); EOS % 2.2 % (0-4.0); GRAN # 2.9 (1.4-6.5); GRAN % 52.2 % (42.2-75.2); HEMATOCRIT 41.6 % (42.0-52.0); HEMOGLOBIN 14.2 g/dl (13.5-18.0); MEAN CELL VOLUME 86 fl (80.0-100.0); MEAN CORPUSCULAR HEMOGLOBIN 29 pg (27.0-31.0); MEAN CORPUSCULAR HGB CONC 34 g/dl (33.0-37.0); MEAN PLATELET VOLUME 9.4 fl (7.4-10.4); MONO # 0.4 (0.1-0.6); MONO % 7.3 % (1.7-9.3); PLATELET COUNT 221 K/mm3 (130-400); RED BLOOD COUNT 4.85 M/mm3 (4.20-5.60)
[2019-04-09 17:50] LABS: ERYTHROCYTE SEDIMENTATION RATE 18 mm/hr (0-15)
[2019-04-09] MEDS ORDERED: CEPHALEXIN500 M1 PO (18:39)
[2019-04-09] MEDS ORDERED: DOXYCYCLINE 10100 MG PO (18:39)
[2019-04-09 19:14] VITALS: PULSE 92
== END 2019-04-09 19:14 | disposition home or self-care (01) ==
LOC: COL.ER 15:14
PROVIDERS: Emergency Medicine
DX: M86.9 Osteomyelitis, unspecified (principal); E11.9 Type 2 diabetes mellitus without complications; F12.90 Cannabis use, unspecified, uncomplicated; G62.9 Polyneuropathy, unspecified; Z79.4 Long term (current) use of insulin
CPT/HCPCS: J7030

== ENCOUNTER 2019-04-15 01:12 | Emergency (ER) | payer MEDICAID ==
[~2019-04-15] VITALS: Ht 175.3 cm; Wt 81.8 kg
[2019-04-15 01:16] VITALS: TEMP 99.1
[2019-04-15 05:03] VITALS: BP 120/82; PULSE 99
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
== END 2019-04-15 09:45 | disposition home or self-care (01) ==
LOC: COL.ER 01:12
DX: T25.222A Burn of second degree of left foot, initial encounter (principal); T25.221A Burn of second degree of right foot, initial encounter; T31.0 Burns involving less than 10% of body surface; E11.9 Type 2 diabetes mellitus without complications; X12.XXXA Contact with other hot fluids, initial encounter; Z79.4 Long term (current) use of insulin

== ENCOUNTER → 2019-05-11 | Outpatient (CLI) | payer MEDICAID | LOC: COL.RAD 17:46 | DX: M77.31 Calcaneal spur, right foot (principal); M77.32 Calcaneal spur, left foot; L03.116 Cellulitis of left lower limb; L03.115 Cellulitis of right lower limb; Z98.890 Other specified postprocedural states ==

== ENCOUNTER 2019-05-21 00:20 | Emergency (ER) | payer MEDICAID ==
[~2019-05-21] VITALS: Ht 175.3 cm; Wt 81.8 kg
[2019-05-21] MEDS ORDERED: OMNICEF 300MG300 MG PO (02:08)
[2019-05-21] MEDS ORDERED: DOXYCYCLINE 10100 MG PO (02:08)
[2019-05-21] MEDS ORDERED: PERCOCET 325 MG1 TA2 PO (02:43)
[2019-05-21 02:53] VITALS: BP 134/94; PULSE 91; TEMP 97.4
== END 2019-05-21 03:06 | disposition home or self-care (01) ==
LOC: COL.ER 00:20
DX: T25.222A Burn of second degree of left foot, initial encounter (principal); T25.221A Burn of second degree of right foot, initial encounter; E11.9 Type 2 diabetes mellitus without complications; E11.42 Type 2 diabetes mellitus with diabetic polyneuropathy; Z79.4 Long term (current) use of insulin; X11.8XXA Contact with other hot tap-water, initial encounter

== ENCOUNTER 2019-05-29 01:51 | Emergency (ER) | payer MEDICAID ==
[~2019-05-29] VITALS: Wt 81.8 kg
[~2019-05-29 01:51] MED LIST changes: +OMNICEF 300MG300 MG PO
[2019-05-29 02:09] VITALS: TEMP 97
[2019-05-29 02:38] LABS: BASO % 0.3 % (0.0-2.0); EOS # 0.1 (0.0-0.7); EOS % 1.3 % (0-4.0); GRAN # 6.3 (1.4-6.5); GRAN % 66.9 % (42.2-75.2); HEMATOCRIT 46.1 % (42.0-52.0); HEMOGLOBIN 15.8 g/dl (13.5-18.0); LYMPH # 2.2 (1.2-3.4); LYMPH % 23.7 % (20.0-51.0); MEAN CELL VOLUME 84 fl (80.0-100.0); MEAN CORPUSCULAR HEMOGLOBIN 29 pg (27.0-31.0); MEAN CORPUSCULAR HGB CONC 34 g/dl (33.0-37.0); MEAN PLATELET VOLUME 9.7 fl (7.4-10.4); MONO # 0.7 (0.1-0.6); MONO % 7.4 % (1.7-9.3); PLATELET COUNT 165 K/mm3 (130-400); RED BLOOD COUNT 5.49 M/mm3 (4.20-5.60); REDCELL DISTRIBUTION WIDTH-CV 12.6 % (11.5-14.5)
[2019-05-29 02:50] LABS: ALANINE AMINOTRANSFERASE 11 U/L (21-72); ALBUMIN 4.8 gm/dL (3.5-5.0); ALKALINE PHOSPHATASE 112 U/L (50-136); ANION GAP 14 mmol/L (7-16); AST,SGOT 25 U/L (15-37); BILIRUBIN,TOTAL 0.9 mg/dL (0.0-1.0); BLOOD UREA NITROGEN 17 mg/dL (9-20); CALCIUM 9.3 mg/dL (8.4-10.2); CARBON DIOXIDE 22 mmol/L (22-30); CHLORIDE 101 mmol/L (98-107); CREATININE, serum 0.44 (0.66-1.25); GLUCOSE 284 mg/dL (74-106); POTASSIUM 4.1 mmol/L (3.4-5.0); SODIUM 137 mmol/L (137-145); TOTAL PROTEIN 8.7 gm/dL (6.4-8.2)
[2019-05-29 03:07] LABS: TROPONIN-I < 0.012 ng/mL (0.000-0.035)
[2019-05-29 03:13] VITALS: BP 150/103
[2019-05-29 06:30] VITALS: PULSE 95
--- NOTE | 2019-05-29 10:39 | NUR ---
western tack assembly line worker and security met with patient and provided a pair of sweat pants. Patient stated he was homeless, however, would not say where he has been staying. Patient was given a dollar to ride the [employer] bus to bean picker meds at [facility] and then go to the [facility]. Worker confirmed with [facility] that patient has Medicaid and that patient is welcome at the Senior Care. Worker spoke with Karie AQUINO) , who has a current open case and is trying to locate patient. Worker advised of the above information. Worker confirmed with [facility] that patient was last seen there with Alice Woodruff on 05/09/19 accompanied by his ex-, Che, and their son. [facility] states patient usually stays on the couch of Che's home. Patient advised that he has a daughter that live with her mother across the [facility] and a child in [place]. Patient has an appointment at [facility] on 06/05 at 11:00 and Karie with [facility] is made aware.
== END 2019-05-29 06:30 | disposition home or self-care (01) ==
LOC: COL.ER 01:51
PROVIDERS: Emergency Medicine
DX: I10 Essential (primary) hypertension (principal); R51 Headache; E11.9 Type 2 diabetes mellitus without complications; Z79.4 Long term (current) use of insulin
CPT/HCPCS: J1815; J2405

== ENCOUNTER 2019-05-30 18:28 | Emergency (ER) | payer MEDICAID ==
[~2019-05-30] VITALS: Ht 172.7 cm; Wt 81.8 kg
[2019-05-30 18:34] VITALS: BP 142/92
[2019-05-30 19:04] VITALS: TEMP 97.3
[2019-05-30 19:19] LABS: BASO % 0.3 % (0.0-2.0); EOS # 0.1 (0.0-0.7); GRAN % 48.9 % (42.2-75.2); HEMATOCRIT 47.4 % (42.0-52.0); HEMOGLOBIN 15.7 g/dl (13.5-18.0); LYMPH # 2.4 (1.2-3.4); LYMPH % 39.5 % (20.0-51.0); MEAN CELL VOLUME 87 fl (80.0-100.0); MEAN CORPUSCULAR HEMOGLOBIN 29 pg (27.0-31.0); MEAN CORPUSCULAR HGB CONC 33 g/dl (33.0-37.0); MEAN PLATELET VOLUME 9.2 fl (7.4-10.4); MONO # 0.6 (0.1-0.6); MONO % 9.1 % (1.7-9.3); PLATELET COUNT 171 K/mm3 (130-400); RED BLOOD COUNT 5.45 M/mm3 (4.20-5.60)
[2019-05-30 19:31] LABS: ACETONE,SERUM NEGATIVE
[2019-05-30 19:34] LABS: ALANINE AMINOTRANSFERASE 27 U/L (21-72); ALBUMIN 4.8 gm/dL (3.5-5.0); ALKALINE PHOSPHATASE 111 U/L (50-136); ANION GAP 11 mmol/L (7-16); AST,SGOT 23 U/L (15-37); BILIRUBIN,TOTAL 0.7 mg/dL (0.0-1.0); BLOOD UREA NITROGEN 29 mg/dL (9-20); CALCIUM 9.8 mg/dL (8.4-10.2); CARBON DIOXIDE 28 mmol/L (22-30); CHLORIDE 102 mmol/L (98-107); CREATININE, serum 0.75 (0.66-1.25); GLUCOSE 139 mg/dL (74-106); SODIUM 141 mmol/L (137-145); TOTAL PROTEIN 8.4 gm/dL (6.4-8.2)
[2019-05-30 19:35] LABS: ACETAMINOPHEN < 10 ug/mL (10-30); ALCOHOL(ethanol),MEDICAL < 10 mg/dL; SALICYLATE < 1.0 mg/dL
[2019-05-30 20:36] LABS: COLLECTION METHOD CLEAN CATCH
[2019-05-30 20:41] LABS: MUCOUS Present /lpf; PH 6 (5-8); SQUAMOUS EPITHELIAL 0-2 /hpf; URINE APPEARANCE Clear; URINE BACTERIA Rare /hpf; URINE BILIRUBIN Negative (NEGATIVE); URINE BLOOD Negative (NEGATIVE); URINE COLOR Yellow; URINE GLUCOSE 3+ (NEGATIVE); URINE KETONE Negative (NEGATIVE); URINE LEUKOCYTE ESTERASE Negative (NEGATIVE); URINE NITRATE Negative (NEGATIVE); URINE PROTEIN(semi-quant) Negative (NEGATIVE); URINE RBC 0-2 /hpf; URINE UROBILINOGEN Negative (NEGATIVE)
[2019-05-30 20:51] LABS: TRICYCLIC ANTIDEPRESS URINE NEGATIVE
[2019-05-30 23:07] VITALS: PULSE 107
== END 2019-05-30 23:07 | disposition home or self-care (01) ==
LOC: COL.ER 18:28
PROVIDERS: Emergency Medicine
DX: R45.851 Suicidal ideations (principal); F32.9 Major depressive disorder, single episode, unspecified; E10.9 Type 1 diabetes mellitus without complications; F17.210 Nicotine dependence, cigarettes, uncomplicated; F19.10 Other psychoactive substance abuse, uncomplicated
CPT/HCPCS: J7030

== ENCOUNTER 2019-05-31 11:12 | Emergency (ER) | payer MEDICAID ==
[~2019-05-31] VITALS: Ht 172.7 cm; Wt 81.8 kg
[2019-05-31 11:15] VITALS: TEMP 98.8
[2019-05-31 12:06] LABS: BASO % 0.5 % (0.0-2.0); EOS # 0.1 (0.0-0.7); EOS % 1.6 % (0-4.0); GRAN # 3.2 (1.4-6.5); GRAN % 49.1 % (42.2-75.2); HEMATOCRIT 42.9 % (42.0-52.0); HEMOGLOBIN 14.4 g/dl (13.5-18.0); LYMPH # 2.5 (1.2-3.4); LYMPH % 38.4 % (20.0-51.0); MEAN CELL VOLUME 86 fl (80.0-100.0); MEAN CORPUSCULAR HEMOGLOBIN 29 pg (27.0-31.0); MEAN CORPUSCULAR HGB CONC 34 g/dl (33.0-37.0); MEAN PLATELET VOLUME 9.4 fl (7.4-10.4); MONO # 0.7 (0.1-0.6); MONO % 10.2 % (1.7-9.3); PLATELET COUNT 144 K/mm3 (130-400); RED BLOOD COUNT 4.98 M/mm3 (4.20-5.60); REDCELL DISTRIBUTION WIDTH-CV 12.8 % (11.5-14.5)
[2019-05-31 12:14] LABS: ACETAMINOPHEN < 10 ug/mL (10-30); ALANINE AMINOTRANSFERASE 19 U/L (21-72); ALBUMIN 4.4 gm/dL (3.5-5.0); ALCOHOL(ethanol),MEDICAL < 10 mg/dL; ALKALINE PHOSPHATASE 90 U/L (50-136); ANION GAP 12 mmol/L (7-16); AST,SGOT 32 U/L (15-37); BLOOD UREA NITROGEN 29 mg/dL (9-20); CARBON DIOXIDE 21 mmol/L (22-30); CHLORIDE 105 mmol/L (98-107); CREATININE, serum 0.62 (0.66-1.25); GLUCOSE 218 mg/dL (74-106); POTASSIUM 4.2 mmol/L (3.4-5.0); SALICYLATE < 1.0 mg/dL; SODIUM 138 mmol/L (137-145); TOTAL PROTEIN 7.9 gm/dL (6.4-8.2)
[2019-05-31 12:58] LABS: COLLECTION METHOD CLEAN CATCH
[2019-05-31 13:04] LABS: MUCOUS Present /lpf; PH 5 (5-8); SQUAMOUS EPITHELIAL None Seen /hpf; URINE APPEARANCE Hazy; URINE BACTERIA Rare /hpf; URINE BILIRUBIN Negative (NEGATIVE); URINE BLOOD Negative (NEGATIVE); URINE COLOR Yellow; URINE GLUCOSE 3+ (NEGATIVE); URINE KETONE 1+ (NEGATIVE); URINE LEUKOCYTE ESTERASE Negative (NEGATIVE); URINE NITRATE Negative (NEGATIVE); URINE PROTEIN(semi-quant) 1+ (NEGATIVE); URINE RBC 0-2 /hpf; URINE UROBILINOGEN Negative (NEGATIVE)
[2019-05-31 13:15] LABS: TRICYCLIC ANTIDEPRESS URINE NEGATIVE
[2019-05-31 19:30] VITALS: BP 103/75; PULSE 94
== END 2019-05-31 19:36 ==
LOC: COL.ER 11:12
PROVIDERS: Emergency Medicine
DX: R45.851 Suicidal ideations (principal); E10.9 Type 1 diabetes mellitus without complications
CPT/HCPCS: J1815

== ENCOUNTER 2019-06-12 12:21 | Emergency (ER) | payer MEDICAID ==
[~2019-06-12] VITALS: Ht 172.7 cm; Wt 84.1 kg
[2019-06-12 12:43] VITALS: TEMP 97.8
[2019-06-12] MEDS ORDERED: ZYPREXA 5MG5 MG PO (14:28)
[2019-06-12 16:26] VITALS: BP 125/62; PULSE 92
== END 2019-06-12 16:34 | disposition home or self-care (01) ==
LOC: COL.ER 12:21
DX: S91.302D Unspecified open wound, left foot, subsequent encounter (principal); S91.301D Unspecified open wound, right foot, subsequent encounter; E11.9 Type 2 diabetes mellitus without complications; F17.210 Nicotine dependence, cigarettes, uncomplicated; Z79.4 Long term (current) use of insulin; X58.XXXD Exposure to other specified factors, subsequent encounter

== ENCOUNTER 2019-06-15 11:25 | Emergency (ER) | payer MEDICAID ==
[~2019-06-15] VITALS: Ht 172.7 cm; Wt 86.4 kg
[~2019-06-15 11:25] MED LIST changes: +ZYPREXA 5MG5 MG PO
[2019-06-15 11:36] VITALS: TEMP 97.5
[2019-06-15] MEDS ORDERED: LEVEMIR FLEX100 U/ML SQ (13:08)
[2019-06-15 13:10] LABS: BASO % 0.5 % (0.0-2.0); EOS # 0.1 (0.0-0.7); EOS % 2.3 % (0-4.0); GRAN # 3.3 (1.4-6.5); GRAN % 58.4 % (42.2-75.2); HEMATOCRIT 39.4 % (42.0-52.0); HEMOGLOBIN 13.1 g/dl (13.5-18.0); LYMPH # 1.6 (1.2-3.4); LYMPH % 28.8 % (20.0-51.0); MEAN CELL VOLUME 87 fl (80.0-100.0); MEAN CORPUSCULAR HEMOGLOBIN 29 pg (27.0-31.0); MEAN CORPUSCULAR HGB CONC 33 g/dl (33.0-37.0); MEAN PLATELET VOLUME 9.9 fl (7.4-10.4); MONO # 0.5 (0.1-0.6); MONO % 9.6 % (1.7-9.3); PLATELET COUNT 159 K/mm3 (130-400); RED BLOOD COUNT 4.53 M/mm3 (4.20-5.60); REDCELL DISTRIBUTION WIDTH-CV 12.6 % (11.5-14.5)
[2019-06-15 13:20] LABS: COLLECTION METHOD CLEAN CATCH
[2019-06-15 13:26] LABS: MUCOUS Present /lpf; PH 6 (5-8); SQUAMOUS EPITHELIAL None Seen /hpf; URINE APPEARANCE Clear; URINE BACTERIA None Seen /hpf; URINE BILIRUBIN Negative (NEGATIVE); URINE BLOOD Negative (NEGATIVE); URINE COLOR Straw; URINE GLUCOSE 3+ (NEGATIVE); URINE KETONE Negative (NEGATIVE); URINE LEUKOCYTE ESTERASE Negative (NEGATIVE); URINE NITRATE Negative (NEGATIVE); URINE PROTEIN(semi-quant) Negative (NEGATIVE); URINE RBC 0-2 /hpf; URINE UROBILINOGEN Negative (NEGATIVE)
[2019-06-15 13:28] LABS: ALANINE AMINOTRANSFERASE 43 U/L (21-72); ALBUMIN 4.2 gm/dL (3.5-5.0); ALKALINE PHOSPHATASE 154 U/L (50-136); ANION GAP 9 mmol/L (7-16); AST,SGOT 24 U/L (15-37); BILIRUBIN,TOTAL 0.3 mg/dL (0.0-1.0); BLOOD UREA NITROGEN 16 mg/dL (9-20); C-REACTIVE PROTEIN 1.4 mg/dL (0.0-0.9); CALCIUM 8.8 mg/dL (8.4-10.2); CARBON DIOXIDE 27 mmol/L (22-30); CHLORIDE 98 mmol/L (98-107); CREATININE, serum 0.58 (0.66-1.25); GLUCOSE 379 mg/dL (74-106); LIPASE 47 U/L (23-300); SODIUM 134 mmol/L (137-145); TOTAL PROTEIN 7.6 gm/dL (6.4-8.2)
[2019-06-15 13:33] LABS: ACETONE,SERUM NEGATIVE
[2019-06-15 19:58] VITALS: BP 94/67; PULSE 80
== END 2019-06-15 19:58 | disposition home or self-care (01) ==
LOC: COL.ER 11:25
PROVIDERS: Emergency Medicine
DX: R14.0 Abdominal distension (gaseous) (principal); R10.9 Unspecified abdominal pain; E11.9 Type 2 diabetes mellitus without complications; Z79.4 Long term (current) use of insulin; Z87.19 Personal history of other diseases of the digestive system
CPT/HCPCS: J1815; J2250; J3010; J7030; Q9967

== ENCOUNTER 2019-09-11 11:34 | Emergency (ER) | payer MEDICAID ==
[~2019-09-11] VITALS: Ht 175.3 cm; Wt 104.5 kg
[~2019-09-11 11:34] MED LIST changes: +LEVEMIR FLEX100 U/ML SQ
[2019-09-11 12:08] VITALS: BP 138/87; TEMP 98.2
[2019-09-11 13:17] LABS: ANION GAP 11 mmol/L (7-16); BLOOD UREA NITROGEN 20 mg/dL (9-20); CALCIUM 9.9 mg/dL (8.4-10.2); CARBON DIOXIDE 27 mmol/L (22-30); CHLORIDE 100 mmol/L (98-107); GLUCOSE 289 mg/dL (74-106); POTASSIUM 4.5 mmol/L (3.4-5.0); SODIUM 138 mmol/L (137-145)
[2019-09-11 13:22] LABS: BASO % 0.6 % (0.0-2.0); EOS # 0.2 (0.0-0.7); EOS % 2.6 % (0-4.0); GRAN # 3.5 (1.4-6.5); GRAN % 50.4 % (42.2-75.2); HEMATOCRIT 39.4 % (42.0-52.0); HEMOGLOBIN 13.1 g/dl (13.5-18.0); LYMPH # 2.4 (1.2-3.4); LYMPH % 34.3 % (20.0-51.0); MEAN CELL VOLUME 85 fl (80.0-100.0); MEAN CORPUSCULAR HEMOGLOBIN 28 pg (27.0-31.0); MEAN CORPUSCULAR HGB CONC 33 g/dl (33.0-37.0); MEAN PLATELET VOLUME 9.4 fl (7.4-10.4); MONO # 0.8 (0.1-0.6); MONO % 11.8 % (1.7-9.3); PLATELET COUNT 189 K/mm3 (130-400); RED BLOOD COUNT 4.63 M/mm3 (4.20-5.60); REDCELL DISTRIBUTION WIDTH-CV 12.1 % (11.5-14.5)
[2019-09-11 13:26] LABS: ACETONE,SERUM NEGATIVE
[2019-09-11] MEDS ORDERED: CEPHALEXIN500 M1 PO (14:21)
[2019-09-11 14:55] VITALS: PULSE 90
== END 2019-09-11 15:00 | disposition home or self-care (01) ==
LOC: COL.ER 11:34
PROVIDERS: Emergency Medicine
DX: L03.011 Cellulitis of right finger (principal); E11.9 Type 2 diabetes mellitus without complications; Z79.4 Long term (current) use of insulin

== ENCOUNTER 2019-09-18 03:43 | Emergency (ER) | payer MEDICAID ==
[~2019-09-18] VITALS: Ht 175.3 cm; Wt 104.5 kg
[2019-09-18 03:47] VITALS: BP 128/85; TEMP 97
[2019-09-18] MEDS ORDERED: PRINIVIL10 MG PO (03:49)
[2019-09-18] MEDS ORDERED: TAMIFLU 75MG75 MG PO (04:42)
[2019-09-18] MEDS ORDERED: ZOFRAN ODT4 MG PO (04:44)
[2019-09-18 05:15] LABS: BASO % 0.2 % (0.0-2.0); EOS # 0.1 (0.0-0.7); EOS % 1.4 % (0-4.0); GRAN # 3.6 (1.4-6.5); GRAN % 73.5 % (42.2-75.2); HEMATOCRIT 41.1 % (42.0-52.0); HEMOGLOBIN 13.7 g/dl (13.5-18.0); LYMPH # 0.5 (1.2-3.4); LYMPH % 10.9 % (20.0-51.0); MEAN CELL VOLUME 84 fl (80.0-100.0); MEAN CORPUSCULAR HEMOGLOBIN 28 pg (27.0-31.0); MEAN CORPUSCULAR HGB CONC 33 g/dl (33.0-37.0); MEAN PLATELET VOLUME 9.6 fl (7.4-10.4); MONO # 0.7 (0.1-0.6); MONO % 13.8 % (1.7-9.3); PLATELET COUNT 161 K/mm3 (130-400); RED BLOOD COUNT 4.89 M/mm3 (4.20-5.60); REDCELL DISTRIBUTION WIDTH-CV 12.1 % (11.5-14.5)
[2019-09-18 05:24] LABS: ALANINE AMINOTRANSFERASE 13 U/L (21-72); ALBUMIN 4.5 gm/dL (3.5-5.0); ALKALINE PHOSPHATASE 100 U/L (50-136); ANION GAP 10 mmol/L (7-16); AST,SGOT 20 U/L (15-37); BILIRUBIN,TOTAL 0.8 mg/dL (0.0-1.0); BLOOD UREA NITROGEN 17 mg/dL (9-20); CALCIUM 8.9 mg/dL (8.4-10.2); CARBON DIOXIDE 28 mmol/L (22-30); CHLORIDE 98 mmol/L (98-107); CREATININE, serum 0.63 (0.66-1.25); GLUCOSE 226 mg/dL (74-106); MAGNESIUM 1.8 mg/dL (1.6-2.3); POTASSIUM 4.1 mmol/L (3.4-5.0); SODIUM 136 mmol/L (137-145); TOTAL PROTEIN 8.4 gm/dL (6.4-8.2)
[2019-09-18 05:38] LABS: ACETONE,SERUM NEGATIVE
[2019-09-18 06:35] VITALS: PULSE 93
== END 2019-09-18 08:35 | disposition home or self-care (01) ==
LOC: COL.ER 03:43
PROVIDERS: Emergency Medicine
DX: J10.1 Influenza due to other identified influenza virus with other respiratory manifestations (principal); R11.10 Vomiting, unspecified; E11.9 Type 2 diabetes mellitus without complications; Z79.4 Long term (current) use of insulin
CPT/HCPCS: J2405; J7030

== ENCOUNTER 2019-12-05 17:18 | Emergency (ER) | payer MEDICAID ==
[~2019-12-05] VITALS: Ht 175.3 cm; Wt 90.9 kg
[~2019-12-05 17:18] MED LIST changes: +PRINIVIL10 MG PO; +TAMIFLU 75MG75 MG PO; +ZOFRAN ODT4 MG PO
[2019-12-05 17:22] VITALS: TEMP 99
[2019-12-05] MEDS ORDERED: CILOXAN .3% EY2.5 ML OD (18:15)
[2019-12-05 18:59] VITALS: BP 104/72; PULSE 99
== END 2019-12-05 19:00 | disposition home or self-care (01) ==
LOC: COL.ER 17:18
DX: S05.91XA Unspecified injury of right eye and orbit, initial encounter (principal); H54.61 Unqualified visual loss, right eye, normal vision left eye; H57.89 Other specified disorders of eye and adnexa; E11.65 Type 2 diabetes mellitus with hyperglycemia; Z79.4 Long term (current) use of insulin; W50.0XXA Accidental hit or strike by another person, initial encounter

== ENCOUNTER 2019-12-30 17:42 | Emergency (ER) | payer MEDICAID ==
[~2019-12-30] VITALS: Ht 172.7 cm; Wt 90.9 kg
[~2019-12-30 17:42] MED LIST changes: +CILOXAN .3% EY2.5 ML OD
[2019-12-30 17:55] VITALS: TEMP 97.8
[2019-12-30 18:11] LABS: BASO % 0.5 % (0.0-2.0); EOS # 0.1 (0.0-0.7); EOS % 1.4 % (0-4.0); GRAN # 2.9 (1.4-6.5); GRAN % 52.6 % (42.2-75.2); HEMATOCRIT 37.7 % (42.0-52.0); HEMOGLOBIN 12.3 g/dl (13.5-18.0); LYMPH % 36.8 % (20.0-51.0); MEAN CELL VOLUME 87 fl (80.0-100.0); MEAN CORPUSCULAR HEMOGLOBIN 29 pg (27.0-31.0); MEAN CORPUSCULAR HGB CONC 33 g/dl (33.0-37.0); MEAN PLATELET VOLUME 10.8 fl (7.4-10.4); MONO # 0.5 (0.1-0.6); MONO % 8.3 % (1.7-9.3); PLATELET COUNT 140 K/mm3 (130-400); RED BLOOD COUNT 4.32 M/mm3 (4.20-5.60); REDCELL DISTRIBUTION WIDTH-CV 12.7 % (11.5-14.5)
[2019-12-30 18:29] LABS: ACETONE,SERUM NEGATIVE; ALANINE AMINOTRANSFERASE 17 U/L (4-49); ALBUMIN 3.8 gm/dL (3.5-5.0); ALKALINE PHOSPHATASE 187 U/L (50-136); ANION GAP 9 mmol/L (7-16); AST,SGOT 19 U/L (15-37); BILIRUBIN,TOTAL 0.4 mg/dL (0.0-1.0); BLOOD UREA NITROGEN 15 mg/dL (9-20); CALCIUM 8.4 mg/dL (8.4-10.2); CARBON DIOXIDE 27 mmol/L (22-30); CHLORIDE 96 mmol/L (98-107); CREATININE, serum 0.63 (0.66-1.25); LIPASE 50 U/L (23-300); POTASSIUM 3.7 mmol/L (3.4-5.0); SODIUM 132 mmol/L (137-145); TOTAL PROTEIN 7.2 gm/dL (6.4-8.2)
[2019-12-30 18:31] LABS: GLUCOSE 435 mg/dL (74-106)
[2019-12-30 20:20] VITALS: BP 107/77; PULSE 77
== END 2019-12-30 20:21 | disposition home or self-care (01) ==
LOC: COL.ER 17:42
PROVIDERS: Emergency Medicine
DX: E11.65 Type 2 diabetes mellitus with hyperglycemia (principal); F32.9 Major depressive disorder, single episode, unspecified; Z79.4 Long term (current) use of insulin; Z89.029 Acquired absence of unspecified finger(s)
CPT/HCPCS: J1815; J7030

== ENCOUNTER 2020-02-13 02:32 | Emergency (ER) | payer MEDICAID ==
[~2020-02-13] VITALS: Ht 175.3 cm; Wt 77.3 kg
[2020-02-13 02:49] VITALS: BP 141/109; TEMP 98.6
[2020-02-13 03:32] LABS: BASO % 0.5 % (0.0-2.0); EOS # 0.1 (0.0-0.7); EOS % 1.1 % (0-4.0); GRAN # 3.5 (1.4-6.5); GRAN % 62.2 % (42.2-75.2); HEMOGLOBIN 16.1 g/dl (13.5-18.0); LYMPH # 1.6 (1.2-3.4); LYMPH % 27.9 % (20.0-51.0); MEAN CELL VOLUME 83 fl (80.0-100.0); MEAN CORPUSCULAR HEMOGLOBIN 29 pg (27.0-31.0); MEAN CORPUSCULAR HGB CONC 35 g/dl (33.0-37.0); MEAN PLATELET VOLUME 9.6 fl (7.4-10.4); MONO # 0.5 (0.1-0.6); MONO % 8.1 % (1.7-9.3); PLATELET COUNT 207 K/mm3 (130-400); RED BLOOD COUNT 5.53 M/mm3 (4.20-5.60); REDCELL DISTRIBUTION WIDTH-CV 12.1 % (11.5-14.5)
[2020-02-13 03:36] LABS: ACETONE,SERUM SMALL
[2020-02-13 03:44] LABS: ALANINE AMINOTRANSFERASE 16 U/L (4-49); ALBUMIN 4.8 gm/dL (3.5-5.0); ALKALINE PHOSPHATASE 105 U/L (50-136); ANION GAP 14 mmol/L (7-16); AST,SGOT 21 U/L (15-37); BILIRUBIN,TOTAL 1.1 mg/dL (0.0-1.0); BLOOD UREA NITROGEN 14 mg/dL (9-20); C-REACTIVE PROTEIN 0.6 mg/dL (0.0-0.9); CALCIUM 9.7 mg/dL (8.4-10.2); CARBON DIOXIDE 26 mmol/L (22-30); CHLORIDE 93 mmol/L (98-107); CREATININE, serum 0.76 (0.66-1.25); GLUCOSE 301 mg/dL (74-106); LIPASE 21 U/L (23-300); POTASSIUM 4.3 mmol/L (3.4-5.0); SODIUM 134 mmol/L (137-145)
[2020-02-13 05:09] LABS: COLLECTION METHOD CLEAN CATCH
[2020-02-13 05:18] LABS: MUCOUS Present /lpf; PH 6 (5-8); SQUAMOUS EPITHELIAL None Seen /hpf; URINE APPEARANCE Clear; URINE BACTERIA None Seen /hpf; URINE BILIRUBIN Negative (NEGATIVE); URINE BLOOD 1+ (NEGATIVE); URINE COLOR Yellow; URINE GLUCOSE 3+ (NEGATIVE); URINE KETONE 1+ (NEGATIVE); URINE LEUKOCYTE ESTERASE Negative (NEGATIVE); URINE NITRATE Negative (NEGATIVE); URINE PROTEIN(semi-quant) 1+ (NEGATIVE); URINE RBC 0-2 /hpf; URINE UROBILINOGEN Negative (NEGATIVE)
[2020-02-13] MEDS ORDERED: ZOFRAN ODT4 MG PO (05:21)
[2020-02-13 06:21] LABS: CALCIUM 8.8 mg/dL (8.4-10.2); CREATININE, serum 0.64 (0.66-1.25); POTASSIUM 4.3 mmol/L (3.4-5.0)
[2020-02-13 07:55] VITALS: PULSE 97
== END 2020-02-13 07:55 | disposition home or self-care (01) ==
LOC: COL.ER 02:32
PROVIDERS: Emergency Medicine
DX: R19.7 Diarrhea, unspecified (principal); R11.10 Vomiting, unspecified; E11.9 Type 2 diabetes mellitus without complications; Z79.4 Long term (current) use of insulin
CPT/HCPCS: J2405; J2550; J7030

== ENCOUNTER 2020-07-07 17:11 | Inpatient (IN) | payer MEDICAID ==
[~2020-07-07] VITALS: Ht 175.3 cm; Wt 97.2 kg
[2020-07-07 18:43] LABS: BASO % 0.2 % (0.0-2.0); EOS % 0.1 % (0-4.0); GRAN # 9.8 (1.4-6.5); HEMATOCRIT 46.9 % (42.0-52.0); HEMOGLOBIN 16.7 g/dl (13.5-18.0); LYMPH # 1.6 (1.2-3.4); LYMPH % 13.3 % (20.0-51.0); MEAN CELL VOLUME 83 fl (80.0-100.0); MEAN CORPUSCULAR HEMOGLOBIN 30 pg (27.0-31.0); MEAN CORPUSCULAR HGB CONC 36 g/dl (33.0-37.0); MEAN PLATELET VOLUME 10.5 fl (7.4-10.4); MONO # 0.7 (0.1-0.6); PLATELET COUNT 258 K/mm3 (130-400); RED BLOOD COUNT 5.65 M/mm3 (4.20-5.60)
[2020-07-07 19:00] LABS: ALBUMIN 5.2 gm/dL (3.5-5.0); BILIRUBIN,TOTAL 1.4 mg/dL (0.0-1.0); CREATININE, serum 0.93 (0.66-1.25); POTASSIUM 4.6 mmol/L (3.4-5.0); TOTAL PROTEIN 9.1 gm/dL (6.4-8.2)
[2020-07-07] MEDS ORDERED: PRINIVIL20 MG PO (22:33)
[2020-07-07 23:47] LABS: BASO % 0.1 % (0.0-2.0); GRAN # 10.5 (1.4-6.5); GRAN % 76.4 % (42.2-75.2); HEMATOCRIT 41.9 % (42.0-52.0); LYMPH # 1.8 (1.2-3.4); MEAN CELL VOLUME 84 fl (80.0-100.0); MEAN CORPUSCULAR HEMOGLOBIN 29 pg (27.0-31.0); MEAN CORPUSCULAR HGB CONC 35 g/dl (33.0-37.0); MEAN PLATELET VOLUME 10.4 fl (7.4-10.4); MONO # 1.4 (0.1-0.6); MONO % 10.1 % (1.7-9.3); PLATELET COUNT 207 K/mm3 (130-400); REDCELL DISTRIBUTION WIDTH-CV 12.1 % (11.5-14.5)
[2020-07-07 23:49] LABS: HEMOGLOBIN 14.6 g/dl (13.5-18.0)
[2020-07-07 23:55] LABS: MAGNESIUM 1.7 mg/dL (1.6-2.3); PHOSPHOROUS 3.7 mg/dL (2.5-4.5)
[2020-07-08] VITALS (8 sets, daily range): BP systolic 155–183; BP diastolic 78–94; PULSE 97–108; TEMP 97.7–99
--- NOTE | 2020-07-08 00:30 | NUR ---
PATIENT UP FROM THE ED. FLUIDS RUNNING. PATIENT HAS COMPLAINTS OF NAUSEA. GIVEN ZOFRAN PER ORDERS. PATIENT ORIENTED TO ROOM.
[2020-07-08 02:38] LABS: CALCIUM 8.8 mg/dL (8.4-10.2); CREATININE, serum 0.64 (0.66-1.25); POTASSIUM 4.1 mmol/L (3.4-5.0)
--- NOTE | 2020-07-08 06:31 | NUR ---
PATIENT GIVING ZOFRAN FOR NAUSEA.
--- NOTE | 2020-07-08 07:53 | NUR ---
Patient lying in bed on left side, continues to have nausea. Alert and oriented x4. Denies pain. Explains that the nausea jsut does not seem to get better. Was given a Zofran but does not feel that it helped alleviate his nausea. Explain that we will see if there is something else that we can get for him.
--- NOTE | 2020-07-08 08:08 | NUR ---
Patient sitting on edge of bed with dry heaves. Administer phenergan IV as prescribed. Reassurance and support provided to the patient.
--- NOTE | 2020-07-08 09:09 | NUR ---
Patient is lying in bed with eyes closed. Respirations even and unlabored. No signs or symptoms of discomfort noted at this time.
--- NOTE | 2020-07-08 12:26 | NUR ---
Lying in bed with eyes open. Denies pain but again is having increase in nausea. Administer Zofran as prescribed. Denies additional needs.
[2020-07-08 12:54] LABS: CALCIUM 8.4 mg/dL (8.4-10.2); CREATININE, serum 0.49 (0.66-1.25); POTASSIUM 3.8 mmol/L (3.4-5.0)
--- NOTE | 2020-07-08 14:23 | NUR ---
Food Court Team Member met with patient to discuss discharge planning. Patient lives alone in [place] and sees SAMINA Templeton for primary care. Patient obtains medications from [facility] with no difficulties. Patient states he saw Alice Woodruff about three weeks ago. Patient reports he has diabetes testing equipment at home and no other DME. Patient is independent with ADLS and plans to return home upon discharge. Patient does not have Advance Directives and was not interested in establishing DPOA-HC at this time. Patient is from his ex-, Che (ph#[phone]). Patient reports he has no adult children, no living parents, and no siblings. SW will continue to follow for discharge needs.
--- NOTE | 2020-07-08 15:24 | NUR ---
Lying in bed with eyes open. Denies pain. Says that he has a little nausea still. Denies needs or concerns at this time.
--- NOTE | 2020-07-08 15:53 | NUR ---
Patient explains that his nausea is getting worse and he would like nausea medication. Administer phenergan as prescribed. Patient lying in bed on left side. Denies additional needs at this time.
--- NOTE | 2020-07-08 16:56 | NUR ---
BP noted to be elevated from what the VETERINARIAN ASSISTANT obtained. Manual BP obtained at this time and BP 158-80. Patient lying in bed on left side with eyes open. Says that the phenergan helped to alleviate most of his nausea. Denies needs at this time.
--- NOTE | 2020-07-08 20:43 | NUR ---
Resting in bed. Assessment complete. Lungs clear. Heart sounds normal. Bowels active x4. Pulses present throughout. No edema noted. IV right AC infusing without complications. Denies pain. Denies needs. Reported nausea. Given PRN zofran. Will monitor.
--- NOTE | 2020-07-09 | NUR ---
Resting in bed. Denies needs. CAll light in reach.
[2020-07-09 02:50] VITALS: BP 152/78; PULSE 98; TEMP 99.2
--- NOTE | 2020-07-09 04:17 | NUR ---
Resting in bed. Denies needs. Call light in reach.
--- NOTE | 2020-07-09 06:18 | NUR ---
Patient had nausea throughout night and this AM. Given phenergan and zofran throughout night. Denies needs this AM. Call light in reach.
--- NOTE | 2020-07-09 07:04 | NUR ---
Report given to JASMIN Ag
[2020-07-09 07:09] VITALS: BP 174/95; PULSE 98; TEMP 98.7
[2020-07-09 08:47] LABS: BASO % 0.2 % (0.0-2.0); EOS % 0.1 % (0-4.0); GRAN # 6.4 (1.4-6.5); GRAN % 67.9 % (42.2-75.2); HEMATOCRIT 40.1 % (42.0-52.0); HEMOGLOBIN 14.2 g/dl (13.5-18.0); LYMPH % 21.1 % (20.0-51.0); MEAN CELL VOLUME 83 fl (80.0-100.0); MEAN CORPUSCULAR HEMOGLOBIN 30 pg (27.0-31.0); MEAN CORPUSCULAR HGB CONC 35 g/dl (33.0-37.0); MEAN PLATELET VOLUME 9.9 fl (7.4-10.4); MONO % 10.4 % (1.7-9.3); PLATELET COUNT 167 K/mm3 (130-400); RED BLOOD COUNT 4.81 M/mm3 (4.20-5.60); REDCELL DISTRIBUTION WIDTH-CV 11.9 % (11.5-14.5)
[2020-07-09 08:56] LABS: CALCIUM 8.8 mg/dL (8.4-10.2); CREATININE, serum 0.59 (0.66-1.25); POTASSIUM 3.6 mmol/L (3.4-5.0)
--- NOTE | 2020-07-09 09:30 | NUR ---
Patient resting in bed at this time. Patient rouses easily, returns to sleep quickly. IVF continue per order. Patient reports nausea, PRN zofran administered per order. Patient denies further needs, call light within reach.
--- NOTE | 2020-07-09 10:46 | NUR ---
Leach Cell Operator collaborated with RN, Kimberli who advised patient has been doing okay in his room but may benefit from PT/OT eval. SW contacted SAMINA Vasquez to request orders.
[2020-07-09 11:54] VITALS: BP 171/86; PULSE 94; TEMP 98.3
[2020-07-09 15:21] VITALS: BP 176/88; PULSE 97; TEMP 98.8
[2020-07-09 20:17] VITALS: BP 155/88; PULSE 96; TEMP 98.9
--- NOTE | 2020-07-09 20:54 | NUR ---
Resting in bed. Assessment complete. Lungs clear. Heart sounds normal. Bowels hypoactive x4. Pulses present throughout. No edema noted. INT right AC painful for patient. Changed to left forearm. Denies pain. Reports discomfort in mid upper ABD with nausea/vomiting. Zofran not due until 2214. Phenergan discontinued. Spoke with Lulú PEREZ, updated regarding persistent nausea. Unable to order anything further at this time. Gastric motility study in AM. Patient updated and will rest until next dose of zofran. Denies other needs at this time. Call light in reach.
--- NOTE | 2020-07-09 21:23 | NUR ---
Per Lulú PEREZ apply scoplamine patch. Provided to patient. Will monitor.
--- NOTE | 2020-07-09 22:17 | NUR ---
Given PRN zofran for nausea at this time. Denies other needs. Call light in reach.
[2020-07-09 23:01] VITALS: BP 140/75; PULSE 96; TEMP 97.7
--- NOTE | 2020-07-09 23:29 | NUR ---
Patient reported heartburn. Lulú PEREZ added orders for tums. Provided to patient. Denies other needs. Denies pain. Call light in reach.
--- NOTE | 2020-07-10 02:03 | NUR ---
Provided patient with PRN zofran for nausea. Denies other needs at this time. Call light in reach.
[2020-07-10 03:02] VITALS: BP 145/80; PULSE 93; TEMP 98.2
--- NOTE | 2020-07-10 03:25 | NUR ---
Resting in bed. Denies needs. Call light in reach.
--- NOTE | 2020-07-10 04:04 | NUR ---
Patient reporting nausea. Zofran recently given. Spoke with Lulú PEREZ. Unable to give anything else at this time. Gastric motility in AM. Updated patient. No other needs at this time.
--- NOTE | 2020-07-10 05:42 | NUR ---
Patient had nausea throughout night. Given zofran as order throughout night. Resting in bed this Am. Call light in reach.
[2020-07-10 06:15] LABS: HEMATOCRIT 42.6 % (42.0-52.0); HEMOGLOBIN 15.1 g/dl (13.5-18.0); MEAN CELL VOLUME 82 fl (80.0-100.0); MEAN CORPUSCULAR HEMOGLOBIN 29 pg (27.0-31.0); MEAN CORPUSCULAR HGB CONC 35 g/dl (33.0-37.0); PLATELET COUNT 188 K/mm3 (130-400); RED BLOOD COUNT 5.21 M/mm3 (4.20-5.60); REDCELL DISTRIBUTION WIDTH-CV 11.7 % (11.5-14.5)
[2020-07-10 06:31] LABS: ALBUMIN 4.2 gm/dL (3.5-5.0); BILIRUBIN,TOTAL 1.3 mg/dL (0.0-1.0); CALCIUM 9.2 mg/dL (8.4-10.2); CREATININE, serum 0.6 (0.66-1.25); POTASSIUM 3.5 mmol/L (3.4-5.0); TOTAL PROTEIN 7.5 gm/dL (6.4-8.2)
--- NOTE | 2020-07-10 07:08 | NUR ---
Report given to JASMIN Moreno
[2020-07-10 07:53] VITALS: PULSE 93; TEMP 98.9
[2020-07-10 12:29] VITALS: BP 171/87; PULSE 93; TEMP 98.5
[2020-07-10 16:00] VITALS: BP 157/85; PULSE 88; TEMP 98.5
--- NOTE | 2020-07-10 19:26 | NUR ---
PT REQUESTED PRN PEPTO TWICE TODAY FOR ACID REFLUX. PT DENIES PAIN JUST SAYS HE DOESN'T FEEL WELL. VOMITTED WITH LUNCH TODAY AND DID NOT EAT MUCH. IS GOING TO TRY DINNER TONIGHT BUT HAS NOT AT SHIFT CHANGE.
[2020-07-10 20:00] VITALS: BP 168/100; PULSE 97; TEMP 99.1
--- NOTE | 2020-07-10 20:45 | NUR ---
Pt. sitting up in bed at this time. Pt. is A&OX3, assessment complete. IV to lt. forearm patent. Pt. denies pain or other needs, call light within reach.
[2020-07-10 23:51] VITALS: BP 175/93; PULSE 99; TEMP 98.8
[2020-07-11] VITALS (7 sets, daily range): BP systolic 98–186; BP diastolic 34–101; PULSE 83–102; TEMP 97.6–98.7
[2020-07-11 06:53] LABS: HEMATOCRIT 42.2 % (42.0-52.0); HEMOGLOBIN 14.8 g/dl (13.5-18.0); MEAN CELL VOLUME 84 fl (80.0-100.0); MEAN CORPUSCULAR HEMOGLOBIN 29 pg (27.0-31.0); MEAN CORPUSCULAR HGB CONC 35 g/dl (33.0-37.0); MEAN PLATELET VOLUME 9.9 fl (7.4-10.4); PLATELET COUNT 174 K/mm3 (130-400); RED BLOOD COUNT 5.03 M/mm3 (4.20-5.60)
[2020-07-11 07:03] LABS: CALCIUM 8.5 mg/dL (8.4-10.2); CREATININE, serum 0.75 (0.66-1.25); POTASSIUM 3.5 mmol/L (3.4-5.0)
--- NOTE | 2020-07-11 08:32 | NUR ---
Patient to endo with [facility]. Ns to gravity & consent obtained.
[2020-07-11] MEDS ORDERED: PRINIVIL20 MG PO (09:28)
[2020-07-11] MEDS ORDERED: PROTONIX 40MG T40 MG PO (09:30)
[2020-07-11] MEDS ORDERED: ZOFRAN ODT4 MG PO (09:31)
--- NOTE | 2020-07-11 09:49 | NUR ---
Patient has returned from [place]. He is refusing to wear his mask. States he is too claustriphobic. Instucted his on improtance, he still refuses. Hospitalist team rounded, patient being grouchy. His Bp elevated. Home lisinopril given. Will closely monitor pressures. Patient ordered a full liquid tray, he refuses. Zero sugar gatorade ordered. Blood sugar 184 at this time. He would benefit from further diabetic education, he has a follow up already scheduled for Elmo zuniga.
--- NOTE | 2020-07-11 10:10 | NUR ---
Heat Engineering Teacher attended clinical rounds with the team and patient is ready to discharge home today. SW met with patient who denies any questions or concerns about returning home. Patient states he has a friend picking him up. Patient to have follow up at [facility] 07/18/20 @9643.
--- NOTE | 2020-07-11 12:57 | NUR ---
Patient Bp more stable now. Blood sugar elevated after he had gatorade. Patient given insuln per sliding scale. He reports he will have his friend pick him up after he gets off work his is going to rest this afternoon.
--- NOTE | 2020-07-11 19:38 | NUR ---
Patient given all discharge teaching. His friend here to take him home. We reviewed new prescriptions He is aware of the importance of keeping track of blood sugars & following a diabetic diet. He has follow up appt scheduled with [facility] chicas. Int Dc. Denies questions or concerns. Waqas wheeled out with all belongings.
== END 2020-07-11 18:50 | disposition home or self-care (01) | DRG 638 ==
LOC: COL.ER 17:11 → SURG 23:03
PROVIDERS: Hospitalist; Internal Medicine Gastroenterology; Nurse Practitioner Family; Nurse Practitioner Primary Care; Physician Assistant; ADMIT Emergency Medicine
PROC: 0DB68ZX Excision of Stomach, Via Natural or Artificial Opening Endoscopic, Diagnostic (ICD-10-PCS; 2020-07-11)
PROC: 0DB98ZX Excision of Duodenum, Via Natural or Artificial Opening Endoscopic, Diagnostic (ICD-10-PCS; principal; 2020-07-11 10:30)
DX: E11.10 Type 2 diabetes mellitus with ketoacidosis without coma (principal); E87.1 Hypo-osmolality and hyponatremia; K21.00 Gastro-esophageal reflux disease with esophagitis, without bleeding; I10 Essential (primary) hypertension; D72.829 Elevated white blood cell count, unspecified; E11.42 Type 2 diabetes mellitus with diabetic polyneuropathy; E86.0 Dehydration; Z20.828 Contact with and (suspected) exposure to other viral communicable diseases; Z79.4 Long term (current) use of insulin
CPT/HCPCS: 99223-AI; 99232-AI; 99239; A9541; C9113; J1650; J1815; J2405; J2550; J2704; J7030; Q9967

== ENCOUNTER 2020-07-24 23:16 | Emergency (ER) | payer MEDICAID ==
[~2020-07-24] VITALS: Ht 175.3 cm; Wt 90.9 kg
[~2020-07-24 23:16] MED LIST changes: +PRINIVIL20 MG PO; +PROTONIX 40MG T40 MG PO
[2020-07-24 23:19] VITALS: TEMP 98
[2020-07-24 23:55] VITALS: BP 167/89; PULSE 98
== END 2020-07-24 23:55 | disposition home or self-care (01) ==
LOC: COL.ER 23:16
DX: H10.9 Unspecified conjunctivitis (principal); E11.40 Type 2 diabetes mellitus with diabetic neuropathy, unspecified; I10 Essential (primary) hypertension; Z79.4 Long term (current) use of insulin

== ENCOUNTER 2020-09-05 18:18 | Inpatient (IN) | payer MEDICAID ==
[~2020-09-05] VITALS: Ht 175.3 cm; Wt 88.9 kg
[2020-09-05 18:55] LABS: BASO % 0.2 % (0.0-2.0); EOS % 0.1 % (0-4.0); GRAN # 7.1 (1.4-6.5); HEMATOCRIT 47.7 % (42.0-52.0); HEMOGLOBIN 16.8 g/dl (13.5-18.0); LYMPH % 20.4 % (20.0-51.0); MEAN CELL VOLUME 84 fl (80.0-100.0); MEAN CORPUSCULAR HEMOGLOBIN 30 pg (27.0-31.0); MEAN CORPUSCULAR HGB CONC 35 g/dl (33.0-37.0); MEAN PLATELET VOLUME 10.3 fl (7.4-10.4); MONO # 0.6 (0.1-0.6); MONO % 6.1 % (1.7-9.3); PLATELET COUNT 217 K/mm3 (130-400); RED BLOOD COUNT 5.67 M/mm3 (4.20-5.60); REDCELL DISTRIBUTION WIDTH-CV 12.4 % (11.5-14.5)
[2020-09-05 19:10] LABS: ALBUMIN 5.2 gm/dL (3.5-5.0); BILIRUBIN,TOTAL 1.5 mg/dL (0.0-1.0); CALCIUM 10.2 mg/dL (8.4-10.2); CREATININE, serum 0.8 (0.66-1.25); POTASSIUM 4.1 mmol/L (3.4-5.0); TOTAL PROTEIN 9.2 gm/dL (6.4-8.2)
[2020-09-05 23:10] LABS: CALCIUM 9.3 mg/dL (8.4-10.2); CREATININE, serum 0.78 (0.66-1.25); POTASSIUM 4.2 mmol/L (3.4-5.0)
--- NOTE | 2020-09-05 23:35 | NUR ---
Received report from ED nurseMeg.
[2020-09-06] VITALS (437 sets, daily range): BP systolic 114–165; BP diastolic 69–99; PULSE 89–95; TEMP 97.9–98.6; O2SAT 57–100
--- NOTE | 2020-09-06 00:02 | NUR ---
Patient arrives to ICU room 5 via ED stretcher. Patient is alert and oriented; is able to ambulate to ICU bed with standby assistance. Initial BP is 165/99, other vitals within normal limits. Patient denies any pain or discomfort. Patient arrives with a 20g peripheral IV to the right AC. No fluids infusing at this time. Some scabbing is noted to the patient's left knuckles; scattered small, round scarring is noted to the bilateral lower extremities. No other skin issues observed. Personal items include a wallet with $50.00 sotelo; a cell phone and stereo map plotter operator, and street clothes. Patient denies having any dentures, glasses, hearing aids, or jewelry.
[2020-09-06 03:28] LABS: CALCIUM 8.8 mg/dL (8.4-10.2); CREATININE, serum 0.69 (0.66-1.25)
--- NOTE | 2020-09-06 07:00 | NUR ---
RECEIVED REPORT FROM JASMIN SNELL. ASSUMED CARE OF PT AT THIS TIME.
--- NOTE | 2020-09-06 07:10 | NUR ---
Report given to JASMIN Guillory.
[2020-09-06 07:23] LABS: CALCIUM 8.7 mg/dL (8.4-10.2); CREATININE, serum 0.71 (0.66-1.25); POTASSIUM 3.8 mmol/L (3.4-5.0)
[2020-09-06 10:39] LABS: COLLECTION METHOD CLEAN CATCH
[2020-09-06 10:47] LABS: MUCOUS Present /lpf; PH 6 (5-8); SQUAMOUS EPITHELIAL None Seen /hpf; URINE APPEARANCE Clear; URINE BACTERIA None Seen /hpf; URINE BILIRUBIN Negative (NEGATIVE); URINE BLOOD 1+ (NEGATIVE); URINE COLOR Yellow; URINE GLUCOSE 3+ (NEGATIVE); URINE KETONE 1+ (NEGATIVE); URINE LEUKOCYTE ESTERASE Negative (NEGATIVE); URINE NITRATE Negative (NEGATIVE); URINE PROTEIN(semi-quant) 2+ (NEGATIVE); URINE UROBILINOGEN Negative (NEGATIVE)
[2020-09-06 10:59] LABS: TRICYCLIC ANTIDEPRESS URINE NEGATIVE
[2020-09-06 11:07] LABS: CALCIUM 8.4 mg/dL (8.4-10.2); CREATININE, serum 0.68 (0.66-1.25)
--- NOTE | 2020-09-06 14:59 | NUR ---
Plan is to return home. Patient reports that he resides locally. Patient reports PCP is Dr. Alice Woodruff. Patient indicated that he will obtain medications from [facility] in [place]. Patient reports EMR contact Che Laird . Patient denies having any DME support or needs. Patient denies having any in home services or needing supports. Educated on services and will continue to follow care.
--- NOTE | 2020-09-06 15:00 | NUR ---
PT TRANSFERRED TO ROOM 348 ON TELEMETRY AND ON ROOM AIR VIA W/C. PT TRANSFERRED SELF TO BED. IVF GTT CONTINUE TO RUN. NOTIFIED NURSE AT NURSES STATION OF PT ARRIVAL.
[2020-09-06] MEDS ORDERED: AZOR 5 MG-40 MG1 TAB PO (15:16)
[2020-09-06] MEDS ORDERED: LIPITOR20 MG PO (15:17)
[2020-09-06] MEDS ORDERED: ADMELOG SO100 UNIT/1 (15:17)
--- NOTE | 2020-09-06 17:58 | NUR ---
Patient has been resting since arrival to the floor. No interest in food at this time, low sugar powerade provided per request. Patient continue on IVF per orders. Blood sugar stable at 111. Patient Vss, Bp slightly elevated. We reviewed home meds list & corrections made. Nehemias gonsales.
[2020-09-07 00:04] VITALS: BP 128/79; PULSE 88; TEMP 98.4
[2020-09-07 03:55] VITALS: BP 144/87; PULSE 86; TEMP 98
--- NOTE | 2020-09-07 05:37 | NUR ---
PT CALLS AND WOULD LIKE SOME MORE SUGAR FREE DRINK. REFUSES TO DRINK WATER. DENIES NAUSEA. DOES NOT TALK MUCH. NS INFUSING IN L AC AT 125ML/HR. CALL LIGHT IN REACH.
[2020-09-07 06:36] LABS: BASO % 0.5 % (0.0-2.0); EOS # 0.1 (0.0-0.7); EOS % 0.8 % (0-4.0); GRAN # 2.9 (1.4-6.5); HEMATOCRIT 38.2 % (42.0-52.0); LYMPH # 2.8 (1.2-3.4); LYMPH % 43.4 % (20.0-51.0); MEAN CELL VOLUME 88 fl (80.0-100.0); MEAN CORPUSCULAR HGB CONC 34 g/dl (33.0-37.0); MEAN PLATELET VOLUME 10.2 fl (7.4-10.4); MONO # 0.6 (0.1-0.6); PLATELET COUNT 143 K/mm3 (130-400); RED BLOOD COUNT 4.34 M/mm3 (4.20-5.60); REDCELL DISTRIBUTION WIDTH-CV 12.4 % (11.5-14.5)
--- NOTE | 2020-09-07 06:39 | NUR ---
appears to be sleeping, bedside shift report received from JASMIN Nowak
[2020-09-07 06:41] LABS: MEAN CORPUSCULAR HEMOGLOBIN 29 pg (27.0-31.0)
[2020-09-07 06:43] LABS: HEMOGLOBIN 12.8 g/dl (13.5-18.0)
[2020-09-07 06:46] LABS: ALBUMIN 3.8 gm/dL (3.5-5.0); BILIRUBIN,TOTAL 1.1 mg/dL (0.0-1.0); CALCIUM 8.4 mg/dL (8.4-10.2); CREATININE, serum 0.73 (0.66-1.25); POTASSIUM 3.6 mmol/L (3.4-5.0); TOTAL PROTEIN 6.8 gm/dL (6.4-8.2)
[2020-09-07 07:33] VITALS: BP 165/90; PULSE 87; TEMP 98.4
[2020-09-07 07:43] VITALS: BP 136/70; PULSE 63; TEMP 98.1
--- NOTE | 2020-09-07 07:55 | NUR ---
awake lying on right side, full assessment completed, see interventions for further info, offered breakfast and he declines at this time, encouraged him to try to have something to eat soon, denies needs
--- NOTE | 2020-09-07 10:00 | NUR ---
remains in bed and continues to sleep wiht IV fluids infusing
[2020-09-07 10:53] VITALS: BP 166/98; PULSE 87; TEMP 98.6
--- NOTE | 2020-09-07 11:17 | NUR ---
sitting up on side of bed, will get up to bathroom independently, denies needs, will only drink low sugar gatorade, food encouraged but refused
--- NOTE | 2020-09-07 11:35 | NUR ---
Patient spoke with RN regarding patient care. Patient has no new needs at this time. Social work will continue to follow.
[2020-09-07] MEDS ORDERED: PROTONIX 40MG T40 MG PO (11:57)
[2020-09-07] MEDS ORDERED: CARAFATE S1 GM/10 ML PO (11:57)
--- NOTE | 2020-09-07 12:03 | NUR ---
Dr Vincent was in to see patient, will plan discharge later today, assisted him with ordering lunch, medicated with carafate 1gm, IV to INT, denies needs
--- NOTE | 2020-09-07 12:40 | NUR ---
sitting up on side of bed ready to eat lunch, instructed to call when he thinks he is ready to go, verbalizes understanding
--- NOTE | 2020-09-07 13:05 | NUR ---
reported to Dr Vincent he ate a small amount of lunch and he is OK with him discharging
--- NOTE | 2020-09-07 13:21 | NUR ---
discharge instructions given to patient, verbalizes understanding, telemetry and INT discontinued
--- NOTE | 2020-09-07 14:12 | NUR ---
dressed and resting in bed waitn for transportation for discharge
--- NOTE | 2020-09-07 14:27 | NUR ---
reported off to JASMIN Alicea patient awaiting transportation for discharge
--- NOTE | 2020-09-07 14:46 | NUR ---
discharged per WC
== END 2020-09-07 14:47 | disposition home or self-care (01) | DRG 639 ==
LOC: COL.ER 18:18 → ICU 22:38 → SURG 09-06 15:10
PROVIDERS: Hospitalist; Nurse Practitioner Primary Care; Physician Assistant; Student in an Organized Health Care Education/Training Program; ADMIT Student in an Organized Health Care Education/Training Program
DX: E11.00 Type 2 diabetes mellitus with hyperosmolarity without nonketotic hyperglycemic-hyperosmolar coma (NKHHC) (principal); E11.65 Type 2 diabetes mellitus with hyperglycemia; Z20.828 Contact with and (suspected) exposure to other viral communicable diseases; K21.00 Gastro-esophageal reflux disease with esophagitis, without bleeding; E11.42 Type 2 diabetes mellitus with diabetic polyneuropathy; Z89.029 Acquired absence of unspecified finger(s); E11.10 Type 2 diabetes mellitus with ketoacidosis without coma
CPT/HCPCS: 99223-AI; 99232-AI; 99239; C9113; J1650; J1815; J2060; J2405; J2550; J7030; J7120

== ENCOUNTER 2020-09-25 03:12 | Emergency (ER) | payer MEDICAID ==
[~2020-09-25] VITALS: Ht 172.7 cm; Wt 90.9 kg
[~2020-09-25 03:12] MED LIST changes: +ADMELOG SO100 UNIT/1; +AZOR 5 MG-40 MG1 TAB PO; +CARAFATE S1 GM/10 ML PO; +LIPITOR20 MG PO
[2020-09-25 03:29] VITALS: TEMP 98.1
[2020-09-25 04:08] LABS: BASO % 0.7 % (0.0-2.0); EOS # 0.1 (0.0-0.7); EOS % 1.7 % (0-4.0); GRAN % 52.1 % (42.2-75.2); HEMATOCRIT 42.7 % (42.0-52.0); HEMOGLOBIN 14.1 g/dl (13.5-18.0); LYMPH # 2.1 (1.2-3.4); LYMPH % 35.6 % (20.0-51.0); MEAN CELL VOLUME 88 fl (80.0-100.0); MEAN CORPUSCULAR HEMOGLOBIN 29 pg (27.0-31.0); MEAN CORPUSCULAR HGB CONC 33 g/dl (33.0-37.0); MONO # 0.6 (0.1-0.6); MONO % 9.6 % (1.7-9.3); PLATELET COUNT 195 K/mm3 (130-400); RED BLOOD COUNT 4.88 M/mm3 (4.20-5.60); REDCELL DISTRIBUTION WIDTH-CV 12.7 % (11.5-14.5)
[2020-09-25 04:17] LABS: ALANINE AMINOTRANSFERASE 26 U/L (4-49); ALBUMIN 4.8 gm/dL (3.5-5.0); ALKALINE PHOSPHATASE 78 U/L (50-136); ANION GAP 12 mmol/L (7-16); AST,SGOT 26 U/L (15-37); BILIRUBIN,TOTAL 0.7 mg/dL (0.0-1.0); BLOOD UREA NITROGEN 12 mg/dL (9-20); CALCIUM 9.4 mg/dL (8.4-10.2); CARBON DIOXIDE 24 mmol/L (22-30); CHLORIDE 103 mmol/L (98-107); CREATININE, serum 0.66 (0.66-1.25); GLUCOSE 193 mg/dL (74-106); POTASSIUM 4.1 mmol/L (3.4-5.0); SODIUM 138 mmol/L (137-145); TOTAL PROTEIN 8.3 gm/dL (6.4-8.2)
[2020-09-25 04:33] LABS: TROPONIN-I < 0.012 ng/mL (0.000-0.035)
[2020-09-25 05:15] VITALS: BP 139/91; PULSE 80
== END 2020-09-25 05:15 | disposition home or self-care (01) ==
LOC: COL.ER 03:12
PROVIDERS: Emergency Medicine
DX: F41.9 Anxiety disorder, unspecified (principal); I10 Essential (primary) hypertension; E11.40 Type 2 diabetes mellitus with diabetic neuropathy, unspecified; Z88.8 Allergy status to other drugs, medicaments and biological substances; Z79.4 Long term (current) use of insulin
CPT/HCPCS: J2060

== ENCOUNTER 2020-10-09 14:05 | Outpatient (RCR) | payer MEDICAID ==
[2020-10-13] MEDS ORDERED: AZOR 5 MG-40 MG1 TAB PO (19:34)
== END 2021-01-07 | disposition still patient (30) ==
LOC: WSOT
DX: G62.9 Polyneuropathy, unspecified (principal); S68.110A Complete traumatic metacarpophalangeal amputation of right index finger, initial encounter; S68.117A Complete traumatic metacarpophalangeal amputation of left little finger, initial encounter; Z74.1 Need for assistance with personal care

== ENCOUNTER 2020-10-13 15:59 | Emergency (ER) | payer MEDICAID ==
[~2020-10-13] VITALS: Ht 172.7 cm; Wt 90.9 kg
[2020-10-13 16:08] VITALS: TEMP 98.2
[2020-10-13 16:42] LABS: BASO % 0.6 % (0.0-2.0); EOS # 0.1 (0.0-0.7); EOS % 2.5 % (0-4.0); GRAN # 2.4 (1.4-6.5); GRAN % 46.7 % (42.2-75.2); HEMATOCRIT 41.4 % (42.0-52.0); HEMOGLOBIN 14.2 g/dl (13.5-18.0); LYMPH # 2.1 (1.2-3.4); LYMPH % 40.2 % (20.0-51.0); MEAN CELL VOLUME 87 fl (80.0-100.0); MEAN CORPUSCULAR HEMOGLOBIN 30 pg (27.0-31.0); MEAN CORPUSCULAR HGB CONC 34 g/dl (33.0-37.0); MEAN PLATELET VOLUME 10.1 fl (7.4-10.4); MONO # 0.5 (0.1-0.6); MONO % 9.8 % (1.7-9.3); PLATELET COUNT 202 K/mm3 (130-400); RED BLOOD COUNT 4.77 M/mm3 (4.20-5.60); REDCELL DISTRIBUTION WIDTH-CV 12.8 % (11.5-14.5)
[2020-10-13 16:44] LABS: ALANINE AMINOTRANSFERASE 19 U/L (4-49); ALBUMIN 4.8 gm/dL (3.5-5.0); ALKALINE PHOSPHATASE 77 U/L (50-136); ANION GAP 11 mmol/L (7-16); AST,SGOT 24 U/L (15-37); BLOOD UREA NITROGEN 20 mg/dL (9-20); CALCIUM 9.4 mg/dL (8.4-10.2); CARBON DIOXIDE 25 mmol/L (22-30); CHLORIDE 102 mmol/L (98-107); CREATININE, serum 0.82 (0.66-1.25); GLUCOSE 173 mg/dL (74-106); POTASSIUM 4.7 mmol/L (3.4-5.0); SODIUM 138 mmol/L (137-145); TOTAL PROTEIN 8.5 gm/dL (6.4-8.2)
[2020-10-13 16:56] LABS: TROPONIN-I < 0.012 ng/mL (0.000-0.035)
[2020-10-13 17:19] LABS: ACETAMINOPHEN < 10 ug/mL (10-30); ALCOHOL(ethanol),MEDICAL < 10 mg/dL; SALICYLATE < 1.0 mg/dL
[2020-10-13 18:38] LABS: TRICYCLIC ANTIDEPRESS URINE NEGATIVE
[2020-10-13] MEDS ORDERED: AZOR 5 MG-40 MG1 TAB PO (19:34)
[2020-10-13 20:16] VITALS: BP 150/105; PULSE 85
== END 2020-10-13 20:16 | disposition home or self-care (01) ==
LOC: COL.ER 15:59
PROVIDERS: Nurse Practitioner
DX: I10 Essential (primary) hypertension (principal); F41.9 Anxiety disorder, unspecified; E11.9 Type 2 diabetes mellitus without complications; Z79.4 Long term (current) use of insulin; Z88.1 Allergy status to other antibiotic agents
CPT/HCPCS: J7030

== ENCOUNTER → 2021-06-19 | Outpatient (CLI) | payer MEDICAID | LOC: COL.VAS 12:31 | DX: I34.0 Nonrheumatic mitral (valve) insufficiency (principal) ==

== ENCOUNTER → 2021-06-30 | Outpatient (CLI) | payer MEDICAID | LOC: COL.CARD 07:18 | DX: R55 Syncope and collapse (principal) ==

== ENCOUNTER 2021-07-13 16:21 | Emergency (ER) | payer MEDICAID ==
[~2021-07-13] VITALS: Ht 172.7 cm; Wt 90.9 kg
[2021-07-13 19:19] LABS: BASO % 0.4 % (0.0-2.0); EOS # 0.1 K/mm3 (0.0-0.7); EOS % 1.5 % (0-4.0); GRAN # 4.1 K/mm3 (1.4-6.5); GRAN % 55.2 % (42.2-75.2); HEMATOCRIT 38.4 % (42.0-52.0); HEMOGLOBIN 12.9 g/dl (13.5-18.0); LYMPH # 2.5 K/mm3 (1.2-3.4); LYMPH % 34.4 % (20.0-51.0); MEAN CELL VOLUME 88 fl (80.0-100.0); MEAN CORPUSCULAR HEMOGLOBIN 30 pg (27.0-31.0); MEAN CORPUSCULAR HGB CONC 34 g/dl (33.0-37.0); MONO # 0.6 K/mm3 (0.1-0.6); MONO % 8.4 % (1.7-9.3); PLATELET COUNT 184 K/mm3 (130-400); RED BLOOD COUNT 4.35 M/mm3 (4.20-5.60); REDCELL DISTRIBUTION WIDTH-CV 12.7 % (11.5-14.5)
[2021-07-13 19:38] LABS: ALANINE AMINOTRANSFERASE 19 U/L (0-55); ALBUMIN 4.3 gm/dL (3.5-5.0); ALKALINE PHOSPHATASE 69 U/L (40-150); ANION GAP 9 mmol/L (7-16); AST,SGOT 25 U/L (5-34); BILIRUBIN,TOTAL 1.4 mg/dL (0.2-1.2); BLOOD UREA NITROGEN 27 mg/dL (9-21); CALCIUM 9.4 mg/dL (8.4-10.2); CARBON DIOXIDE 22 mmol/L (22-29); CHLORIDE 105 mmol/L (98-107); CREATININE, serum 1.36 mg/dL (0.72-1.25); GLUCOSE 139 mg/dL (70-99); POTASSIUM 3.9 mmol/L (3.5-4.5); SODIUM 136 mmol/L (136-145); TOTAL PROTEIN 7.8 gm/dL (6.2-8.1)
[2021-07-13 19:42] LABS: ACETAMINOPHEN < 1.0 ug/mL (10-30); ALCOHOL(ethanol),MEDICAL < 10 mg/dL (0-10); SALICYLATE < 5.0 mg/dL (15.0-30.0)
[2021-07-13 20:45] LABS: COLLECTION METHOD CLEAN CATCH
[2021-07-13 20:58] LABS: MUCOUS Present (NOT PRESENT); PH 5 (5-8); SQUAMOUS EPITHELIAL None Seen /hpf (0-10); URINE APPEARANCE Cloudy (CLEAR/HAZY); URINE BACTERIA None Seen (NONE SEEN); URINE BILIRUBIN Negative (NEGATIVE); URINE BLOOD Negative (NEGATIVE); URINE COLOR Yellow (YELLOW); URINE GLUCOSE 1+ (NEGATIVE); URINE KETONE Trace (NEGATIVE); URINE LEUKOCYTE ESTERASE 1+ (NEGATIVE); URINE NITRATE Negative (NEGATIVE); URINE PROTEIN(semi-quant) 1+ (NEGATIVE); URINE UROBILINOGEN Negative (NEGATIVE)
[2021-07-13 22:16] LABS: TRICYCLIC ANTIDEPRESS URINE NEGATIVE
[2021-07-14 10:40] VITALS: BP 102/40; PULSE 83; TEMP 98.5
== END 2021-07-14 10:40 ==
LOC: COL.ER 16:21
PROVIDERS: Nurse Practitioner
DX: F41.9 Anxiety disorder, unspecified (principal); E11.9 Type 2 diabetes mellitus without complications; I10 Essential (primary) hypertension; Z20.822 Contact with and (suspected) exposure to COVID-19; Z79.4 Long term (current) use of insulin; Z79.899 Other long term (current) drug therapy
CPT/HCPCS: J1815; J2060

== ENCOUNTER 2021-08-03 19:44 | Emergency (ER) | payer MEDICAID ==
[~2021-08-03] VITALS: Ht 172.7 cm; Wt 90.9 kg
[2021-08-04 07:15] VITALS: TEMP 98.3
[2021-08-04] MEDS ORDERED: VALIUM 5MG T5 MG/TAB PO (07:21)
[2021-08-04] MEDS ORDERED: COZAAR 25MG25 MG/TAB PO (07:21)
[2021-08-04] MEDS ORDERED: ZYPREXA15 MG PO (07:22)
[2021-08-04] MEDS ORDERED: PROTONIX 40MG T40 MG PO (12:09)
[2021-08-04] MEDS ORDERED: ADMELOG SO100 UNIT/1 SQ (12:12)
[2021-08-04] MEDS ORDERED: ONE DAILY ESSE0.5 M1 PO (12:13)
[2021-08-04 12:30] VITALS: BP 158/94
[2021-08-04 14:29] VITALS: PULSE 82
--- NOTE | 2021-08-04 14:38 | NUR ---
Brim Plater was consulted in the ED for patient who was suicidal, needing voluntary psych placement. This was complicated by patient's diagnosis of COVID 19. YENY collaborated with Miriam at the [facility] who advised they would not be able to secure placement with patient's current COVID diagnosis. YENY contacted [facility] and spoke with Callie in bed placement. Callie advised they can take pysch patient's who have COVID 19 however they do not have any beds at this time. YENY faxed clinicals to fax#[phone] and requested Miriam at [facility] also fax documentation. YENY collaborated with Miriam at [facility] and patient's RN, Riya who advised patient is suicidal because he has no where to go. Miriam left message with the [facility] to inquire about voucher for hotel room while patient is in isolation. YENY followed up later with RN who advised patient is no longer suicidal and wants to leave. Patient to be discharged. YENY notified Miriam at [facility] who indicated she was aware.
== END 2021-08-04 14:29 | disposition home or self-care (01) ==
LOC: COL.ER 19:44
DX: U07.1 COVID-19 (principal); F41.9 Anxiety disorder, unspecified; F32.A Depression, unspecified; Z79.899 Other long term (current) drug therapy

== ENCOUNTER 2021-09-25 20:03 | Emergency (ER) | payer MEDICAID ==
[~2021-09-25] VITALS: Ht 172.7 cm; Wt 86.4 kg
[~2021-09-25 20:03] MED LIST changes: +ADMELOG SO100 UNIT/1 SQ; +COZAAR 25MG25 MG/TAB PO; +ONE DAILY ESSE0.5 M1 PO; +VALIUM 5MG T5 MG/TAB PO; +ZYPREXA15 MG PO
[2021-09-25 20:06] VITALS: TEMP 97.5
[2021-09-25 20:49] LABS: BASO % 0.4 % (0.0-2.0); EOS % 0.2 % (0.0-4.0); GRAN # 7.4 K/mm3 (1.4-6.5); GRAN % 72.5 % (42.2-75.2); HEMATOCRIT 46.5 % (42.0-52.0); HEMOGLOBIN 16.4 g/dl (13.5-18.0); LYMPH # 2.1 K/mm3 (1.2-3.4); LYMPH % 20.1 % (20.0-51.0); MEAN CELL VOLUME 85 fl (80.0-100.0); MEAN CORPUSCULAR HEMOGLOBIN 30 pg (27-31); MEAN CORPUSCULAR HGB CONC 35 g/dl (33.0-37.0); MEAN PLATELET VOLUME 10.1 fl (7.4-10.4); MONO # 0.7 K/mm3 (0.1-0.6); MONO % 6.4 % (1.7-9.3); PLATELET COUNT 248 K/mm3 (130-400); RED BLOOD COUNT 5.49 M/mm3 (4.20-5.60); REDCELL DISTRIBUTION WIDTH-CV 12.5 % (11.5-14.5)
[2021-09-25 21:05] LABS: ALBUMIN 4.4 gm/dL (3.5-5.0); BILIRUBIN,TOTAL 1.8 mg/dL (0.2-1.2); CALCIUM 9.9 mg/dL (8.4-10.2); CREATININE, serum 0.9 mg/dL (0.72-1.25); POTASSIUM 4.2 mmol/L (3.5-4.5); TOTAL PROTEIN 8.6 gm/dL (6.2-8.1)
[2021-09-25 23:44] LABS: COLLECTION METHOD CLEAN CATCH
[2021-09-25 23:53] LABS: MUCOUS Present (NOT PRESENT); PH 7 (5-8); SQUAMOUS EPITHELIAL None Seen /hpf (0-10); URINE APPEARANCE Hazy (CLEAR/HAZY); URINE BACTERIA Rare /hpf (NONE SEEN); URINE BILIRUBIN Negative (NEGATIVE); URINE BLOOD 1+ (NEGATIVE); URINE COLOR Yellow (YELLOW); URINE GLUCOSE 3+ (NEGATIVE); URINE KETONE 2+ (NEGATIVE); URINE LEUKOCYTE ESTERASE Negative (NEGATIVE); URINE NITRATE Negative (NEGATIVE); URINE PROTEIN(semi-quant) 2+ (NEGATIVE); URINE UROBILINOGEN Negative (NEGATIVE)
[2021-09-25 23:58] LABS: TRICYCLIC ANTIDEPRESS URINE NEGATIVE
[2021-09-26] MEDS ORDERED: PHENERGAN 25 TA25 MG PO (01:02)
[2021-09-26 01:22] VITALS: BP 182/99; PULSE 111
== END 2021-09-26 01:22 | disposition home or self-care (01) ==
LOC: COL.ER 20:03
PROVIDERS: Physician Assistant
DX: F19.10 Other psychoactive substance abuse, uncomplicated (principal); R11.2 Nausea with vomiting, unspecified; R51.9 Headache, unspecified; R10.84 Generalized abdominal pain; Z20.822 Contact with and (suspected) exposure to COVID-19
CPT/HCPCS: J0780; J1790; J2405; J7030

== ENCOUNTER 2021-09-28 18:26 | Emergency (ER) | payer MEDICAID ==
[~2021-09-28] VITALS: Ht 175.3 cm; Wt 86.4 kg
[2021-09-28 18:36] VITALS: TEMP 98.4
[2021-09-28 19:35] LABS: BASO % 0.1 % (0.0-2.0); EOS % 0.4 % (0.0-4.0); GRAN # 4.4 K/mm3 (1.4-6.5); GRAN % 57.8 % (42.2-75.2); HEMATOCRIT 45.6 % (42.0-52.0); HEMOGLOBIN 16.4 g/dl (13.5-18.0); LYMPH # 2.2 K/mm3 (1.2-3.4); LYMPH % 28.5 % (20.0-51.0); MEAN CELL VOLUME 82 fl (80.0-100.0); MEAN CORPUSCULAR HEMOGLOBIN 30 pg (27-31); MEAN CORPUSCULAR HGB CONC 36 g/dl (33.0-37.0); MEAN PLATELET VOLUME 9.9 fl (7.4-10.4); MONO % 12.8 % (1.7-9.3); PLATELET COUNT 226 K/mm3 (130-400); RED BLOOD COUNT 5.55 M/mm3 (4.20-5.60); REDCELL DISTRIBUTION WIDTH-CV 12.1 % (11.5-14.5)
[2021-09-28 19:55] LABS: ALANINE AMINOTRANSFERASE 13 U/L (0-55); ALBUMIN 4.2 gm/dL (3.5-5.0); ALKALINE PHOSPHATASE 93 U/L (40-150); ANION GAP 16 mmol/L (7-16); AST,SGOT 13 U/L (5-34); BILIRUBIN,TOTAL 1.8 mg/dL (0.2-1.2); BLOOD UREA NITROGEN 24 mg/dL (9-21); CALCIUM 9.9 mg/dL (8.4-10.2); CARBON DIOXIDE 22 mmol/L (22-29); CHLORIDE 91 mmol/L (98-107); CREATININE, serum 0.95 mg/dL (0.72-1.25); GLUCOSE 225 mg/dL (70-99); LIPASE 15 U/L (8-78); POTASSIUM 3.8 mmol/L (3.5-4.5); SODIUM 129 mmol/L (136-145)
[2021-09-28 20:01] LABS: ACETAMINOPHEN < 1.0 ug/mL (10-30); ALCOHOL(ethanol),MEDICAL < 10 mg/dL (0-10); SALICYLATE < 5.0 mg/dL (15.0-30.0)
[2021-09-28 21:01] LABS: MONOSCREEN NEGATIVE
[2021-09-28 22:19] LABS: COLLECTION METHOD CLEAN CATCH
[2021-09-28 22:29] LABS: MUCOUS Present (NOT PRESENT); PH 7 (5-8); SQUAMOUS EPITHELIAL None Seen /hpf (0-10); URINE APPEARANCE Clear (CLEAR/HAZY); URINE BACTERIA None Seen /hpf (NONE SEEN); URINE BILIRUBIN Negative (NEGATIVE); URINE BLOOD 2+ (NEGATIVE); URINE COLOR Yellow (YELLOW); URINE GLUCOSE 2+ (NEGATIVE); URINE KETONE 2+ (NEGATIVE); URINE LEUKOCYTE ESTERASE Negative (NEGATIVE); URINE NITRATE Negative (NEGATIVE); URINE PROTEIN(semi-quant) 1+ (NEGATIVE); URINE RBC 0-2 /hpf (0-2); URINE UROBILINOGEN Negative (NEGATIVE)
[2021-09-28 22:38] LABS: TRICYCLIC ANTIDEPRESS URINE NEGATIVE
[2021-09-29 11:29] VITALS: BP 132/84; PULSE 92
== END 2021-09-29 11:29 | disposition home or self-care (01) ==
LOC: COL.ER 18:26
PROVIDERS: Physician Assistant
DX: K86.1 Other chronic pancreatitis (principal); R45.851 Suicidal ideations; E11.9 Type 2 diabetes mellitus without complications
CPT/HCPCS: J0780; J1790; J7030; Q9967

== ENCOUNTER 2021-11-26 00:11 | Inpatient (IN) | payer MEDICAID ==
[2021-11-26] VITALS (13 sets, daily range): BP systolic 142–169; BP diastolic 78–97; PULSE 80–90; TEMP 97.9–98.9
[~2021-11-26] VITALS: Ht 172.7 cm; Wt 87.7 kg
[2021-11-26 01:08] LABS: BASO % 0.3 % (0.0-2.0); EOS % 0.2 % (0.0-4.0); GRAN # 6.1 K/mm3 (1.4-6.5); HEMATOCRIT 48.2 % (42.0-52.0); HEMOGLOBIN 17.8 g/dl (13.5-18.0); LYMPH # 2.8 K/mm3 (1.2-3.4); MEAN CELL VOLUME 80 fl (80.0-100.0); MEAN CORPUSCULAR HEMOGLOBIN 30 pg (27-31); MEAN CORPUSCULAR HGB CONC 37 g/dl (33.0-37.0); MEAN PLATELET VOLUME 10.3 fl (7.4-10.4); MONO # 1.9 K/mm3 (0.1-0.6); MONO % 17.1 % (1.7-9.3); PLATELET COUNT 228 K/mm3 (130-400); RED BLOOD COUNT 6.02 M/mm3 (4.20-5.60); REDCELL DISTRIBUTION WIDTH-CV 12.1 % (11.5-14.5)
[2021-11-26 01:18] LABS: ACETONE,SERUM NEGATIVE
[2021-11-26 01:32] LABS: ALANINE AMINOTRANSFERASE 12 U/L (0-55); ALBUMIN 4.6 gm/dL (3.5-5.0); ALKALINE PHOSPHATASE 76 U/L (40-150); ANION GAP 19 mmol/L (7-16); AST,SGOT 16 U/L (5-34); BILIRUBIN,TOTAL 2.3 mg/dL (0.2-1.2); BLOOD UREA NITROGEN 43 mg/dL (9-21); C-REACTIVE PROTEIN 0.45 mg/dL (0.00-0.50); CALCIUM 9.1 mg/dL (8.4-10.2); CARBON DIOXIDE 21 mmol/L (22-29); CREATINE KINASE 150 U/L (30-200); CREATININE, serum 1.17 mg/dL (0.72-1.25); GLUCOSE 233 mg/dL (70-99); LIPASE 16 U/L (8-78); POTASSIUM 3.8 mmol/L (3.5-4.5); SODIUM 123 mmol/L (136-145)
[2021-11-26 01:40] LABS: CHLORIDE 83 mmol/L (98-107); TROPONIN-I < 0.010 ng/mL (0.00-0.033)
[2021-11-26 03:29] LABS: MAGNESIUM 2.4 mg/dL (1.6-2.6); PHOSPHOROUS 3.6 mg/dL (2.3-4.7)
[2021-11-26 03:32] LABS: ALCOHOL(ethanol),MEDICAL < 10 mg/dL (0-10); SALICYLATE < 5.0 mg/dL (15.0-30.0)
[2021-11-26 03:49] LABS: THYROID STIMULATING HORMONE 1.909 uIU/mL (0.350-4.940)
[2021-11-26 05:04] LABS: OSMOLALITY-SERUM 286 Osm/kg (275-300)
[2021-11-26 06:22] LABS: CALCIUM 7.6 mg/dL (8.4-10.2); CREATININE, serum 0.81 mg/dL (0.72-1.25); POTASSIUM 3.2 mmol/L (3.5-4.5)
[2021-11-26] MEDS ORDERED: HUMALOG100 U/ML SQ (07:39)
--- NOTE | 2021-11-26 16:00 | NUR ---
Pt arrived to medical unit room 351 from ER at 1500. Oriented pt to room. Admission assessments and med rec completed. Pt displaying flat affect and gives minimal response to questions. Reported that he does have suicidal thoughts but no history of attempts or active plans. notified and pt placed on one-to-one suicide precautions. Denies needs at this time. Continuing to monitor.
[2021-11-26 21:22] LABS: COLLECTION METHOD CLEAN CATCH
[2021-11-26 21:30] LABS: PH 7 (5-8); SQUAMOUS EPITHELIAL None Seen /hpf (0-10); URINE APPEARANCE Clear (CLEAR/HAZY); URINE BACTERIA None Seen /hpf (NONE SEEN); URINE BILIRUBIN Negative (NEGATIVE); URINE BLOOD 2+ (NEGATIVE); URINE COLOR Yellow (YELLOW); URINE GLUCOSE 1+ (NEGATIVE); URINE KETONE 1+ (NEGATIVE); URINE LEUKOCYTE ESTERASE Negative (NEGATIVE); URINE NITRATE Negative (NEGATIVE); URINE PROTEIN(semi-quant) 1+ (NEGATIVE); URINE RBC 0-2 /hpf (0-2)
[2021-11-26 21:44] LABS: TRICYCLIC ANTIDEPRESS URINE NEGATIVE
[2021-11-26 22:21] LABS: OSMOLALITY-URINE random 503 Osm/kg (50-1200)
--- NOTE | 2021-11-26 22:58 | NUR ---
RECEIVED REPORT FROM DAY SHIFT. PATIENT RESTING IN BED, ALERT AND ORIENTED X4. VSS. PATIENT HERE FOR SOA, HYPONATREMIA. PATIENT COMPLAINS OF PAIN 6/10 IN STOMACH. ASSESSMENT PERFORMED. PM MEDS ADMINISTERED. PATIENT IS COMPLIANT, WAS ABLE TO OBTAIN UA AND MOVE ROOMS. PATIENT IS RESTING IN BED WITH CALL LIGHT NEAR.
[2021-11-27] VITALS (12 sets, daily range): BP systolic 138–178; BP diastolic 74–98; PULSE 85–94; TEMP 98.3–99.1
[2021-11-27 09:49] LABS: BASO % 0.5 % (0.0-2.0); EOS # 0.1 K/mm3 (0.0-0.7); EOS % 1.3 % (0.0-4.0); GRAN # 2.9 K/mm3 (1.4-6.5); GRAN % 47.7 % (42.2-75.2); HEMATOCRIT 39.4 % (42.0-52.0); LYMPH # 2.2 K/mm3 (1.2-3.4); LYMPH % 36.6 % (20.0-51.0); MEAN CELL VOLUME 84 fl (80.0-100.0); MEAN CORPUSCULAR HEMOGLOBIN 29 pg (27-31); MEAN CORPUSCULAR HGB CONC 35 g/dl (33.0-37.0); MEAN PLATELET VOLUME 10.5 fl (7.4-10.4); MONO # 0.8 K/mm3 (0.1-0.6); MONO % 13.7 % (1.7-9.3); PLATELET COUNT 145 K/mm3 (130-400); REDCELL DISTRIBUTION WIDTH-CV 12.5 % (11.5-14.5)
[2021-11-27 09:53] LABS: HEMOGLOBIN 13.7 g/dl (13.5-18.0)
[2021-11-27 10:02] LABS: CALCIUM 7.5 mg/dL (8.4-10.2); CREATININE, serum 0.82 mg/dL (0.72-1.25); POTASSIUM 3.5 mmol/L (3.5-4.5)
--- NOTE | 2021-11-27 12:55 | NUR ---
This SW contacted the CSU. Therapist states the CSU will not screen him again due to no changed since their last assessment on 11/25. Patient is currently on SI precaustions. Will wait to complete discharge assessment at a later time. Once medically ready, the patient will return back to the CSU.
--- NOTE | 2021-11-27 14:18 | NUR ---
smooth and burr worker composites notified by patients RN that the patient was wanting to be a volunatry placement at a [facility] facility in [place]. This SW contacted the CSU to notify them that the patient is now requesting this. The CSU states that they will either need to screen the patient while he is still here for this or if he was discharged he would be brought back to the ER to be "medically cleared" for placement. Collaborated with the patient, patients RN and PA on the above. Agreement made to have the patient screened while here. Patients clinical information faxd to the CSU.
--- NOTE | 2021-11-27 14:37 | NUR ---
Therapist from [facility] contacts this SW with meeting ID for screen. SW provided patient with ipad to complete. Therapists states that the patient would need to stay here until a bed became available.
--- NOTE | 2021-11-27 22:03 | NUR ---
Around 1919, [facility] crisis center called and stated that patient was declined at [place]. Requested to talk to patient to see if he would be willing to go back to the crisis center rather than in patient. Patient was agreeable to this at that time. [facility] stated that due to weather it would probably be around 2299 that patient would be picked up tonight, and would keep us updated. Around 2019, patient anxious and frustarted. Upset that he was not getting into inpatient, upset that he is depressed. Patient given PRN Ativan as requested. Talked with patient and asked if he was still ok with going back [facility], and he said he was ok with is. [facility] called back later and asked if it was ok that patient's ex- transport him to crisis center. Checked with Manager Managing who stated that it was fine. Went over discharge paperwork with patient around 2129. When given follow up appointment, patient stated that he didn't think he would go to appointment. Highlighted PCP information for patient and encouraged to call and reschedule to a date and time that works for him. Also told him to schedule his lab work for before the follow-up appointment. Patient staed that he probably wont go anyway and that he does not care. Went over education packets on hyponatremia, what to watch for, and how to avoid it. Went over restricting water to 500 mls/day to help make sure sodium doesn't get too low. Voiced understanding. Ex- here to black pickler patient at 2154 and discharged.
[2021-11-28] MEDS ORDERED: LEVEMIR100 U/ML SQ (15:49)
== END 2021-11-27 21:55 | DRG 644 ==
LOC: COL.ER 00:11 → MEDICAL 02:32
PROVIDERS: Emergency Medicine; Nurse Practitioner Family; ADMIT Student in an Organized Health Care Education/Training Program
DX: E22.2 Syndrome of inappropriate secretion of antidiuretic hormone (principal); R45.851 Suicidal ideations; I82.891 Chronic embolism and thrombosis of other specified veins; E87.4 Mixed disorder of acid-base balance; I10 Essential (primary) hypertension; F41.9 Anxiety disorder, unspecified; F32.A Depression, unspecified; E87.8 Other disorders of electrolyte and fluid balance, not elsewhere classified; E11.65 Type 2 diabetes mellitus with hyperglycemia; F43.10 Post-traumatic stress disorder, unspecified; F12.10 Cannabis abuse, uncomplicated; F19.10 Other psychoactive substance abuse, uncomplicated; R91.1 Solitary pulmonary nodule; R59.1 Generalized enlarged lymph nodes; R19.7 Diarrhea, unspecified; Z20.822 Contact with and (suspected) exposure to COVID-19
CPT/HCPCS: 99223-AI; 99232-AI; 99238; C9113; J1815; J2060; J2550; J7030; Q9967

== ENCOUNTER 2021-11-28 14:04 | Emergency (ER) | payer MEDICAID ==
[~2021-11-28] VITALS: Ht 175.3 cm; Wt 90.9 kg
[~2021-11-28 14:04] MED LIST changes: +HUMALOG100 U/ML SQ
[2021-11-28 14:30] VITALS: TEMP 98.3
[2021-11-28] MEDS ORDERED: LEVEMIR100 U/ML SQ (15:49)
[2021-11-28 18:20] VITALS: BP 139/88; PULSE 90
== END 2021-11-28 20:25 | disposition home or self-care (01) ==
LOC: COL.ER 14:04
DX: R45.6 Violent behavior (principal); E11.65 Type 2 diabetes mellitus with hyperglycemia; Z79.4 Long term (current) use of insulin; Z28.311 Partially vaccinated for COVID-19
CPT/HCPCS: J1815

== ENCOUNTER 2022-04-04 09:46 | Emergency (ER) | payer MEDICAID ==
[~2022-04-04] VITALS: Ht 172.7 cm; Wt 81.8 kg
[~2022-04-04 09:46] MED LIST changes: +ATIVAN 0.50.5 MG/TAB PO; +LEVEMIR100 U/ML SQ
[2022-04-04 10:44] LABS: BASO % 0.6 % (0.0-2.0); EOS # 0.1 K/mm3 (0.0-0.7); EOS % 1.6 % (0.0-4.0); GRAN # 3.9 K/mm3 (1.4-6.5); GRAN % 63.1 % (42.2-75.2); HEMATOCRIT 39.5 % (42.0-52.0); HEMOGLOBIN 13.4 g/dl (13.5-18.0); LYMPH # 1.6 K/mm3 (1.2-3.4); LYMPH % 26.3 % (20.0-51.0); MEAN CELL VOLUME 88 fl (80.0-100.0); MEAN CORPUSCULAR HEMOGLOBIN 30 pg (27-31); MEAN CORPUSCULAR HGB CONC 34 g/dl (33.0-37.0); MONO # 0.5 K/mm3 (0.1-0.6); MONO % 8.1 % (1.7-9.3); PLATELET COUNT 147 K/mm3 (130-400); RED BLOOD COUNT 4.51 M/mm3 (4.20-5.60); REDCELL DISTRIBUTION WIDTH-CV 13.5 % (11.5-14.5)
[2022-04-04 11:01] LABS: ACETAMINOPHEN < 1.0 ug/mL (10-30); ALANINE AMINOTRANSFERASE 13 U/L (0-55); ALBUMIN 3.6 gm/dL (3.5-5.0); ALCOHOL(ethanol),MEDICAL < 10 mg/dL (0-10); ALKALINE PHOSPHATASE 93 U/L (40-150); ANION GAP 12 mmol/L (7-16); AST,SGOT 15 U/L (5-34); BILIRUBIN,TOTAL 0.5 mg/dL (0.2-1.2); BLOOD UREA NITROGEN 12 mg/dL (9-21); CALCIUM 9.1 mg/dL (8.4-10.2); CARBON DIOXIDE 23 mmol/L (22-29); CHLORIDE 104 mmol/L (98-107); CREATININE, serum 0.83 mg/dL (0.72-1.25); GLUCOSE 200 mg/dL (70-99); POTASSIUM 4.1 mmol/L (3.5-4.5); SALICYLATE < 5.0 mg/dL (15.0-30.0); SODIUM 139 mmol/L (136-145); TOTAL PROTEIN 7.1 gm/dL (6.2-8.1)
[2022-04-04 11:34] LABS: COLLECTION METHOD CLEAN CATCH
[2022-04-04 11:50] LABS: MUCOUS Present (NOT PRESENT); SQUAMOUS EPITHELIAL None Seen /hpf (0-10); URINE APPEARANCE Clear (CLEAR/HAZY); URINE BACTERIA None Seen /hpf (NONE SEEN); URINE COLOR Amber (YELLOW)
[2022-04-04 11:51] LABS: URINE BLOOD TRACE-INTACT (NEGATIVE); URINE GLUCOSE Negative (NEGATIVE); URINE KETONE Negative (NEGATIVE); URINE NITRATE Negative (NEGATIVE); URINE PROTEIN(semi-quant) 2+ (NEGATIVE); URINE UROBILINOGEN 0.2 E.U/dL (0.2-1.0)
[2022-04-04 12:04] LABS: TRICYCLIC ANTIDEPRESS URINE NEGATIVE
[2022-04-06 01:04] VITALS: TEMP 97.3
[2022-04-06 07:12] VITALS: BP 160/88; PULSE 88
== END 2022-04-06 14:10 ==
LOC: COL.ER 09:46
PROVIDERS: Physician Assistant
DX: R45.851 Suicidal ideations (principal); E11.65 Type 2 diabetes mellitus with hyperglycemia; Z20.822 Contact with and (suspected) exposure to COVID-19; Z79.4 Long term (current) use of insulin
CPT/HCPCS: J1815

== ENCOUNTER 2022-09-30 07:27 | Emergency (ER) | payer MEDICAID ==
[~2022-09-30] VITALS: Ht 172.7 cm; Wt 90.9 kg
[~2022-09-30 07:27] MED LIST changes: +REGLAN 10MG10 MG/TAB PO
[2022-09-30 07:34] VITALS: TEMP 97.3
[2022-09-30 07:46] LABS: BASO % 0.3 % (0.0-2.0); EOS % 0.1 % (0.0-4.0); GRAN # 8.9 K/mm3 (1.4-6.5); HEMATOCRIT 43.2 % (42.0-52.0); HEMOGLOBIN 15.7 g/dl (13.5-18.0); LYMPH # 1.6 K/mm3 (1.2-3.4); LYMPH % 13.6 % (20.0-51.0); MEAN CELL VOLUME 82 fl (80.0-100.0); MEAN CORPUSCULAR HEMOGLOBIN 30 pg (27-31); MEAN CORPUSCULAR HGB CONC 36 g/dl (33.0-37.0); MEAN PLATELET VOLUME 10.9 fl (7.4-10.4); MONO # 0.9 K/mm3 (0.1-0.6); MONO % 7.6 % (1.7-9.3); PLATELET COUNT 176 K/mm3 (130-400); REDCELL DISTRIBUTION WIDTH-CV 12.2 % (11.5-14.5)
[2022-09-30 08:03] LABS: ALANINE AMINOTRANSFERASE 17 U/L (0-55); ALBUMIN 4.6 gm/dL (3.5-5.0); ALKALINE PHOSPHATASE 100 U/L (40-150); ANION GAP 20 mmol/L (7-16); AST,SGOT 16 U/L (5-34); BLOOD UREA NITROGEN 27 mg/dL (9-21); CALCIUM 10.1 mg/dL (8.4-10.2); CARBON DIOXIDE 19 mmol/L (22-29); CHLORIDE 90 mmol/L (98-107); CREATININE, serum 1.14 mg/dL (0.72-1.25); GLUCOSE 381 mg/dL (70-99); LIPASE 14 U/L (8-78); POTASSIUM 4.1 mmol/L (3.5-4.5); SODIUM 129 mmol/L (136-145); TOTAL PROTEIN 8.8 gm/dL (6.2-8.1)
[2022-09-30 08:09] LABS: TROPONIN-I < 0.010 ng/mL (0.00-0.033)
[2022-09-30] MEDS ORDERED: PHENERGAN 25 TA25 MG PO (10:29)
[2022-09-30 12:02] VITALS: BP 162/89; PULSE 104
== END 2022-09-30 12:02 | disposition home or self-care (01) ==
LOC: COL.ER 07:27
PROVIDERS: Emergency Medicine
DX: K52.9 Noninfective gastroenteritis and colitis, unspecified (principal); E11.65 Type 2 diabetes mellitus with hyperglycemia; Z20.822 Contact with and (suspected) exposure to COVID-19; Z28.311 Partially vaccinated for COVID-19
CPT/HCPCS: J1790; J1815; J2765; J7120

== ENCOUNTER 2022-10-22 13:56 | Observation (INO) | payer MEDICAID ==
[~2022-10-22] VITALS: Ht 175.3 cm; Wt 90.9 kg
[2022-10-22 14:54] LABS: BASO % 0.7 % (0.0-2.0); EOS # 0.1 K/mm3 (0.0-0.7); GRAN # 3.3 K/mm3 (1.4-6.5); LYMPH # 2.1 K/mm3 (1.2-3.4); LYMPH % 34.7 % (20.0-51.0); MEAN CELL VOLUME 89 fl (80.0-100.0); MEAN CORPUSCULAR HGB CONC 34 g/dl (33.0-37.0); MEAN PLATELET VOLUME 9.9 fl (7.4-10.4); MONO # 0.5 K/mm3 (0.1-0.6); MONO % 8.3 % (1.7-9.3); PLATELET COUNT 228 K/mm3 (130-400); RED BLOOD COUNT 2.83 M/mm3 (4.20-5.60); REDCELL DISTRIBUTION WIDTH-CV 12.8 % (11.5-14.5)
[2022-10-22 14:55] LABS: HEMATOCRIT 25.3 % (42.0-52.0); HEMOGLOBIN 8.6 g/dl (13.5-18.0); MEAN CORPUSCULAR HEMOGLOBIN 30 pg (27-31)
[2022-10-22 15:14] LABS: ALBUMIN 3.1 gm/dL (3.5-5.0); BILIRUBIN,TOTAL 0.7 mg/dL (0.2-1.2); C-REACTIVE PROTEIN 0.46 mg/dL (0.00-0.50); CALCIUM 8.3 mg/dL (8.4-10.2); CREATININE, serum 1.04 mg/dL (0.72-1.25); POTASSIUM 4.8 mmol/L (3.5-4.5); TOTAL PROTEIN 5.9 gm/dL (6.2-8.1)
[2022-10-22 15:20] LABS: TROPONIN-I 0.014 ng/mL (0.00-0.033)
[2022-10-22 16:54] VITALS: BP 136/72; PULSE 100; TEMP 97.6
[2022-10-22 19:43] VITALS: BP 111/46; PULSE 102; TEMP 98.6
--- NOTE | 2022-10-22 23:17 | NUR ---
Assessment completed at 2109. A&O x4. No evening medication ordered. Pt reports not needing anything at this time. Pt got reminded of letting the staff know when he needed to use the bathroom to collect an urine sample and a stool sample. Pt verbalized understanding. Belongings and call light are within reach.
[2022-10-23] VITALS (14 sets, daily range): BP systolic 105–161; BP diastolic 49–85; PULSE 86–941; TEMP 98.2–99.4
[2022-10-23 06:07] LABS: BASO % 0.5 % (0.0-2.0); EOS % 0.8 % (0.0-4.0); GRAN # 1.8 K/mm3 (1.4-6.5); GRAN % 47.5 % (42.2-75.2); LYMPH # 1.6 K/mm3 (1.2-3.4); LYMPH % 43.9 % (20.0-51.0); MEAN CELL VOLUME 89 fl (80.0-100.0); MEAN CORPUSCULAR HGB CONC 34 g/dl (33.0-37.0); MEAN PLATELET VOLUME 10.1 fl (7.4-10.4); MONO # 0.3 K/mm3 (0.1-0.6); RED BLOOD COUNT 2.13 M/mm3 (4.20-5.60); REDCELL DISTRIBUTION WIDTH-CV 13.2 % (11.5-14.5)
[2022-10-23 06:16] LABS: MEAN CORPUSCULAR HEMOGLOBIN 31 pg (27-31); PLATELET COUNT 127 K/mm3 (130-400)
[2022-10-23 06:18] LABS: HEMOGLOBIN 6.5 g/dl (13.5-18.0)
[2022-10-23 06:20] LABS: CALCIUM 7.8 mg/dL (8.4-10.2); CREATININE, serum 0.68 mg/dL (0.72-1.25); POTASSIUM 4.2 mmol/L (3.5-4.5)
--- NOTE | 2022-10-23 07:05 | NUR ---
Critical labs received on H&H, and platelets. Provider notified and report given to Minerva CASTELLANOS. Orders to repeat H&H received.
[2022-10-23 09:08] LABS: HEMOGLOBIN 6.2 g/dl (13.5-18.0)
[2022-10-23 09:09] LABS: HEMATOCRIT 17.4 % (42.0-52.0)
--- NOTE | 2022-10-23 10:30 | NUR ---
PATIENT TAKEN TO SURGERY
--- NOTE | 2022-10-23 11:09 | NUR ---
PATIENT ARRIVED FROM EGD IN STABLE CONDITION. PATIENT ASKING FOR HIS ATIVAN BECAUSE HE IS STILL ANXIOUS AND WOULD LIKE TO KNOW WHEN HE CAN LEAVE. PATIENTS VITALS ARE STABLE, CALL LIGHT WITH INREACH.
--- NOTE | 2022-10-23 14:00 | NUR ---
PATIENT AWAKE AND ALERT, RESTING IN BED. PATIENT TOLERATED BLOOD TRANSFUSION WELL WITHOUT ANY S/S OF REACTION. PATIENT WITHOUT ANY NEEDS OR COMPLAINTS AT THIS TIME.
[2022-10-23 14:58] LABS: HEMATOCRIT 21.3 % (42.0-52.0); HEMOGLOBIN 7.4 g/dl (13.5-18.0)
--- NOTE | 2022-10-23 15:54 | NUR ---
Flux Core Welder met with patient for intake assessment/discharge planning. Patient adult daughter Paige ([phone]) at bedside and patient gives verbal consent for this Flux Core Welder to meet with him with daughter present. He is alert and oriented, and he presents with an irritable mood stating, "I'm grumpy...I'm always grumpy." He states he lives with his daughter in a 2-story apartment. He states, "the bathroom is on the second fucking floor. It's dumb," and he states he can "barely" ambulate around his home. He states he and his daughter together complete IADLs; he does not utilize any DME or assistive devices to ambulate. He reports his primary care physician is Alice Woodruff, and he obtains his medications at [facility] without any difficulty, when they deliver. 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 He expresses anger that he cannot get Valium and Ativan through [place], which is prescribed to him at [facility] and this hospital during previous admissions. He states these medications help him with pain, anger, and anxiety. He reports he feels treated inhumanely, "like a junkie." Patient states he smokes THC for self-medication. He states if he could get the medication he needs, he could get well and go to work. 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 Daughter states, "He's very skilled." Patient reports a struggle with [facility] services, with concern they won't get him the help he needs. He describes CSU services, "They act like they care but that's bullshit when you leave there." He states he has difficulties with a CSU staff and that he was "forced" to go to OSH, when they argued about treatment services, stating he wished he could have been re-evaluated to voluntarily admit to inpatient treatment "somewhere else." Patient expresses passive SI thoughts that when he is unwell, he cannot do anything so he might as well stop taking his insulin. He denies SI at this time, stating "all I can do is hope" and he expresses interest in Case Management team follow up to [facility] on Tuesday to help coordinate their services, including attendant care and case management. "That would be awesome." Patient would like to follow up with an eye appointment in [place] for treatment because he cannot see out of one of his eyes. He states he will have an EGD today, and he expresses frustration at his repeated treatment during hospitalizations here. He would like to see if there is another option at discharge for support to help him recover. He wants to see if his daughter can become his paid caregiver through the waiver. Daughter is in support. *Case Management follow up for support in coordinating [facility] outpatient attendant care and case management services at discharge to home with adult daughter*
--- NOTE | 2022-10-23 22:44 | NUR ---
Pt complaining of nausea during shift assessment around 2114, and requesting phenergan and ativan. dry mixer notified of this event. Pt also reported pain on LAC INT, and dry mixer started new IV on RAC. LAC DC with tip intact. Tele on. No other needs or concerns were expressed at this time. Call light is within reach.
[2022-10-24 00:19] VITALS: BP 106/50; PULSE 87; TEMP 98.8
[2022-10-24 04:38] VITALS: BP 116/62; PULSE 47; TEMP 98.6
[2022-10-24 07:24] VITALS: BP 116/67; PULSE 84; TEMP 98.6
[2022-10-24 08:05] LABS: TRICYCLIC ANTIDEPRESS URINE NEGATIVE
[2022-10-24 08:24] LABS: BASO % 0.6 % (0.0-2.0); EOS % 0.6 % (0.0-4.0); GRAN # 1.4 K/mm3 (1.4-6.5); GRAN % 44.2 % (42.2-75.2); HEMATOCRIT 19.9 % (42.0-52.0); HEMOGLOBIN 7.2 g/dl (13.5-18.0); LYMPH # 1.4 K/mm3 (1.2-3.4); LYMPH % 45.7 % (20.0-51.0); MEAN CELL VOLUME 88 fl (80.0-100.0); MEAN CORPUSCULAR HEMOGLOBIN 32 pg (27-31); MEAN CORPUSCULAR HGB CONC 36 g/dl (33.0-37.0); MEAN PLATELET VOLUME 9.7 fl (7.4-10.4); MONO # 0.3 K/mm3 (0.1-0.6); MONO % 8.6 % (1.7-9.3); PLATELET COUNT 122 K/mm3 (130-400); RED BLOOD COUNT 2.26 M/mm3 (4.20-5.60); REDCELL DISTRIBUTION WIDTH-CV 13.4 % (11.5-14.5)
[2022-10-24] MEDS ORDERED: PROTONIX 40MG T40 MG PO (09:30)
[2022-10-24] MEDS ORDERED: PHENERGAN 25 TA25 MG PO (09:31)
[2022-10-24] MEDS ORDERED: BIAXIN 500MG T500 MG PO (09:45)
[2022-10-24] MEDS ORDERED: AMOXICILLIN 50500 MG PO (09:46)
--- NOTE | 2022-10-24 11:00 | NUR ---
PATIENT AWAKE AND ALERT, RESTING IN BED. NO NEEDS OR COMPLAINTS AT THIS TIME. IV AND TELE REMOVED. PATIENT GIVEN DISCHARGE INSTRUCTIONS AND EDUCATION. ALL QUESTIONS ANSWERED AND NEW MEDS REVIEWED. PATIENT STATED HE NEEDS SOMEONE TO CALL HIS EMERGENCY CONTACT (PAMELLA LOZADA) TO PICK HIM UP.
--- NOTE | 2022-10-24 11:09 | NUR ---
PATIENTS EMERGENCY CONTACT CALLED. NO ANSWER, MAILBOX FULL.
--- NOTE | 2022-10-24 11:55 | NUR ---
ATTEMPTED TO CALL PATIENTS EMERGENCY CONTACT AGAIN TO [facility] PATIENT, AGAIN NO ANSWER, VOICEMAIL BOX STILL FULL.
--- NOTE | 2022-10-24 12:00 | NUR ---
PATIENT STATED HE HAS NO OTHER PERSON TO CALL FOR A RIDE, NO URBINA OR CARD FOR PICKUP. WILL CALL SW AND SEE IF WE CAN ARRANGE RIDE.
--- NOTE | 2022-10-24 12:00 | NUR ---
PATIENT INFORMED BY THIS RN THAT SW ARRANGED THROUGH MEDICAID A RIDE HOME FOR HIM.
--- NOTE | 2022-10-24 12:14 | NUR ---
White Mixing Operator rounds: White Mixing Operator visit attempted. Patient declined.
--- NOTE | 2022-10-24 13:15 | NUR ---
INFORMED PATIENT HIS RIDE FOR MEDICAID WILL BE HERE AT 1630. PATIENT THEN GOT AGITATED AND STATED "I MIGHT WELL FUCKING WALK." PATIENT UNWILLING TO WAIT FOR ARRANGED RIDE. PATIENT THEN STARTED TO GET DRESSED, ASKED TO LEAVE [facility] WITH SECURITY. PATIENT TAKEN TO ED ENTRANCE BY STUDENT, WHERE HE LEFT THE HOSPITAL IN STABLE CONDITION.
--- NOTE | 2022-10-24 13:15 | NUR ---
YENY setup medicaid transportation for 4:35 pm. Pt will need to be at ER front entrance. Confirmation # [id number]. YENY gave transportation medical floor phone number for contact if local delivery truck driver is lost. Medicaid transportation number [phone]
== END 2022-10-24 13:15 | disposition home or self-care (01) ==
LOC: COL.ER 13:56 → MEDICAL 15:32
PROVIDERS: Family Medicine; Internal Medicine; ADMIT Student in an Organized Health Care Education/Training Program
DX: K27.9 Peptic ulcer, site unspecified, unspecified as acute or chronic, without hemorrhage or perforation (principal); D64.9 Anemia, unspecified; B96.81 Helicobacter pylori [H. pylori] as the cause of diseases classified elsewhere; E11.43 Type 2 diabetes mellitus with diabetic autonomic (poly)neuropathy; K31.84 Gastroparesis; I10 Essential (primary) hypertension; E78.5 Hyperlipidemia, unspecified; F41.9 Anxiety disorder, unspecified; F19.10 Other psychoactive substance abuse, uncomplicated; F32.A Depression, unspecified; F43.10 Post-traumatic stress disorder, unspecified; Z79.899 Other long term (current) drug therapy; Z79.4 Long term (current) use of insulin
CPT/HCPCS: C9113; G0378; J1200; J1790; J2550; J2704; J7120; P9016; Q9967

== ENCOUNTER 2023-07-08 20:20 | Inpatient (IN) | payer MEDICAID ==
[~2023-07-08] VITALS: Ht 175.3 cm; Wt 90.9 kg
[~2023-07-08 20:20] MED LIST changes: +BIAXIN 500MG T500 MG PO; +CRESTOR 10MG10 MG PO; +PEPTO BISMOL262 MG PO; +PROMETHAZINE12.5 M5 PO
[2023-07-08 21:11] LABS: BASO % 0.6 % (0.0-2.0); EOS # 0.1 K/mm3 (0.0-0.7); EOS % 2.2 % (0.0-4.0); GRAN # 3.2 K/mm3 (1.4-6.5); GRAN % 62.2 % (42.2-75.2); HEMATOCRIT 35.2 % (42.0-52.0); HEMOGLOBIN 11.6 g/dl (13.5-18.0); LYMPH # 1.3 K/mm3 (1.2-3.4); MEAN CELL VOLUME 87 fl (80.0-100.0); MEAN CORPUSCULAR HEMOGLOBIN 29 pg (27-31); MEAN CORPUSCULAR HGB CONC 33 g/dl (33.0-37.0); MEAN PLATELET VOLUME 9.7 fl (7.4-10.4); MONO # 0.5 K/mm3 (0.1-0.6); MONO % 8.8 % (1.7-9.3); PLATELET COUNT 174 K/mm3 (130-400); RED BLOOD COUNT 4.04 M/mm3 (4.20-5.60); REDCELL DISTRIBUTION WIDTH-CV 12.4 % (11.5-14.5)
[2023-07-08 21:28] LABS: ALBUMIN 3.4 gm/dL (3.5-5.0); BILIRUBIN,TOTAL 0.5 mg/dL (0.2-1.2); C-REACTIVE PROTEIN 2.42 mg/dL (0.00-0.50); CALCIUM 10.1 mg/dL (8.4-10.2); CREATININE, serum 1.15 mg/dL (0.72-1.25); POTASSIUM 5.3 mmol/L (3.5-4.5); TOTAL PROTEIN 7.7 gm/dL (6.2-8.1)
[2023-07-08] MEDS ORDERED: INSULIN LI100 UNIT/2 SQ (22:24)
[2023-07-09] VITALS (10 sets, daily range): BP systolic 104–167; BP diastolic 58–841; PULSE 72–87; TEMP 97.4–99.2
--- NOTE | 2023-07-09 00:30 | NUR ---
pt admitted to room 329 @ 2350 per cart, able to transfer self to bed, pt oriented to room, floor and poc. IV and IVF present in RAC, vanc infusion almost complete, NS running @ 75cc/hr, pt c/o IV being on "wrong side and wants to eat whatever he wants, not follow ADA diet" reminded him his BGM was 321 in ED, rechecked after arrival and again 321, Jason notified and wants SSI given. 10 units given subq. pt c/o "they gave it in the IV downstairs" pt not in good mood and very demanding of staff. taken down to CT after admission completed. once back to room c/o not having his normal medicine to help him relax, RN asked what this was and pt stated "weed", notified Jason and trazadone ordered for sleep.
--- NOTE | 2023-07-09 00:36 | NUR ---
Vancomycin Initial Dosing Pharmacy Note Ordering provider: Lelo Glover E., MD Indication/duration: DM foot wound x 5 days Relevant comorbidities: DM2, HTN LABS: SCr = 1.15, X-ray- No bone involvement. Recommendation: If continued, will draw troughs and follow levels. Loading dose: 1.5 grams Maintenance dose: 1 gram every 12 hours Trough goal: 10-15 ug/mL
--- NOTE | 2023-07-09 04:12 | NUR ---
pt c/o stuffy nose and dry mouth, "I can't breathe" O2 sat 97% on RA, states its from taking the trazadone. notified SAMINA Gomez, gauri ordered.
--- NOTE | 2023-07-09 07:04 | NUR ---
DR LEWIS NOTIFIED PER PHONE OF CONSULT
[2023-07-09 07:08] LABS: MEAN CELL VOLUME 84 fl (80.0-100.0); MEAN CORPUSCULAR HGB CONC 34 g/dl (33.0-37.0); PLATELET COUNT 153 K/mm3 (130-400); RED BLOOD COUNT 3.45 M/mm3 (4.20-5.60); REDCELL DISTRIBUTION WIDTH-CV 12.4 % (11.5-14.5)
[2023-07-09 07:14] LABS: HEMATOCRIT 29.1 % (42.0-52.0); HEMOGLOBIN 9.9 g/dl (13.5-18.0); MEAN CORPUSCULAR HEMOGLOBIN 29 pg (27-31)
[2023-07-09 07:46] LABS: CALCIUM 8.7 mg/dL (8.4-10.2); CREATININE, serum 0.81 mg/dL (0.72-1.25); MAGNESIUM 1.5 mg/dL (1.6-2.6); POTASSIUM 4.4 mmol/L (3.5-4.5)
--- NOTE | 2023-07-09 08:41 | NUR ---
PT COMPLAINING OF ANXIETY THIS AM, DR. SORIANO CALLED TO NOTIFY AND REQUEST ANTI-ANXIETY MEDICATION. ORDERS PLACED.
--- NOTE | 2023-07-09 09:37 | NUR ---
PT RESITNG ONS OSMANY OF BED WITH NO PAIN AT THIS TIME. ANTI-ANXIETY MEDICATION PROVIDED. BILATERAL LOWER EXTREMITIES RED, SCABBING, AND CUTS. RIGHT AND LEFT 2ND TOES WITH OPE WOUNDS. LEFT 2ND TOE DRAINING BUT OPEN TO AIR. STEADY GAIT AROUND ROOM. WILL CONTINUE TO MONITOR.
--- NOTE | 2023-07-09 16:29 | NUR ---
SW met with patient to complete intake. Patient provides he lives in [place], does not utilize DME, independent with ADL's, and previously utilize [facility] for home health agency. PCP is Dr. Woodruff, and pharmacy is [facility]. Patient states he does not have a DPOA HC and did not wish to appointment one at this time. Point of contact for patient is friend Che Laird [phone]. Patient plans to return to his home upon dc. YENY will continue to follow. DC plan: home
[2023-07-09 19:32] LABS: TRICYCLIC ANTIDEPRESS URINE NEGATIVE
[2023-07-10] VITALS (12 sets, daily range): BP systolic 104–178; BP diastolic 75–101; PULSE 75–941; TEMP 98.1–98.6
[2023-07-10 07:18] LABS: BASO % 0.9 % (0.0-2.0); EOS # 0.1 K/mm3 (0.0-0.7); EOS % 2.8 % (0.0-4.0); GRAN # 2.3 K/mm3 (1.4-6.5); GRAN % 52.5 % (42.2-75.2); HEMOGLOBIN 11.4 g/dl (13.5-18.0); LYMPH # 1.5 K/mm3 (1.2-3.4); LYMPH % 35.1 % (20.0-51.0); MEAN CELL VOLUME 83 fl (80.0-100.0); MEAN CORPUSCULAR HEMOGLOBIN 28 pg (27-31); MEAN CORPUSCULAR HGB CONC 34 g/dl (33.0-37.0); MEAN PLATELET VOLUME 9.3 fl (7.4-10.4); MONO # 0.4 K/mm3 (0.1-0.6); MONO % 8.5 % (1.7-9.3); PLATELET COUNT 196 K/mm3 (130-400); RED BLOOD COUNT 4.03 M/mm3 (4.20-5.60); REDCELL DISTRIBUTION WIDTH-CV 12.5 % (11.5-14.5)
[2023-07-10 07:21] LABS: HEMATOCRIT 33.6 % (42.0-52.0)
[2023-07-10 07:45] LABS: CALCIUM 8.8 mg/dL (8.4-10.2); CREATININE, serum 0.82 mg/dL (0.72-1.25); MAGNESIUM 1.9 mg/dL (1.6-2.6); POTASSIUM 4.8 mmol/L (3.5-4.5)
--- NOTE | 2023-07-10 10:29 | NUR ---
PT RESTING IN BED WITH NO PAIN AND STEADY GAIT. PT APPEARS ANXIOUS AND FRUSTRATED AT THIS TIME. PRN MEDICATION OFFERED AND DECLINED AT THIS TIME. WILL CONTINUE TO MONITOR.
--- NOTE | 2023-07-10 20:40 | NUR ---
Patient assessed at this time, see shift assessment, denies pain or discomfort, seemed pleasant at this time, still with IV infusing well on right AC flushes well, denies further needs, call light and personal items within reach, all needs met, will continue to monitor.
[2023-07-11] VITALS (11 sets, daily range): BP systolic 142–168; BP diastolic 87–103; PULSE 79–92; TEMP 97.6–98.2
--- NOTE | 2023-07-11 04:02 | NUR ---
Patient appears anxious and frustrated because the meds that has been ordered like trazodone and zyprexa are not helping him at all.
[2023-07-11 06:57] LABS: BASO % 0.8 % (0.0-2.0); EOS # 0.1 K/mm3 (0.0-0.7); EOS % 2.6 % (0.0-4.0); GRAN # 1.8 K/mm3 (1.4-6.5); GRAN % 48.2 % (42.2-75.2); HEMATOCRIT 31.1 % (42.0-52.0); HEMOGLOBIN 10.9 g/dl (13.5-18.0); LYMPH # 1.4 K/mm3 (1.2-3.4); LYMPH % 37.6 % (20.0-51.0); MEAN CELL VOLUME 83 fl (80.0-100.0); MEAN CORPUSCULAR HEMOGLOBIN 29 pg (27-31); MEAN CORPUSCULAR HGB CONC 35 g/dl (33.0-37.0); MEAN PLATELET VOLUME 9.4 fl (7.4-10.4); MONO # 0.4 K/mm3 (0.1-0.6); MONO % 10.8 % (1.7-9.3); PLATELET COUNT 156 K/mm3 (130-400); RED BLOOD COUNT 3.75 M/mm3 (4.20-5.60); REDCELL DISTRIBUTION WIDTH-CV 12.2 % (11.5-14.5)
[2023-07-11 07:13] LABS: CALCIUM 8.8 mg/dL (8.4-10.2); CREATININE, serum 0.81 mg/dL (0.72-1.25); MAGNESIUM 1.8 mg/dL (1.6-2.6); POTASSIUM 4.8 mmol/L (3.5-4.5)
--- NOTE | 2023-07-11 09:07 | NUR ---
Surgical Asst collaborated with Treatment Team to assess Patient for discharge readiness. Patient is being assessed today for further medical needs and will discharge home with oral abx. Physician recommends psych follow-up when discharged. If Patient needs continued medical care, physician intends to make Patient INPT, pening today's testing.
--- NOTE | 2023-07-11 09:27 | NUR ---
Initial visit; Patient very somber and nodded "no" to Business Management Professor asking if there was anything she could do to help. She mentioned prayer, keeping him in her prayers and/or just wishing him well. Business Management Professor received the same 'nod' "no". Business Management Professor offered God's blessings and will eventually return if patient is here a day or so.
--- NOTE | 2023-07-11 10:10 | NUR ---
PT RESTING IN BED WITH NO PAIN AT THIS TIME. STEADY GAIT, BILATERAL SECOND TOES LEFT OPEN TO AIR. PT APPEARS ANXIOUS AND FRUSTRATED. PRN MEDICATION OFFERED AND DECLINED. WILL CONTINUE TO MONITOR.
--- NOTE | 2023-07-11 18:45 | NUR ---
PATIENT RESTING IN BED WITH ALL LIGHTS OFF AND TV OFF WITH NO ACUTE DISTRESS NOTED. PATIENT ON ROOM AIR. INTO TO RIGHT AC INTACT WITH NO COMPLICATIONS NOTED. PATIENT WITH FLAT AFFECT. BEDSIDE REPORT RECIEVED AND PATIENT DENIED ANY NEEDS AT THIS TIME. BED IN LOW POSITION WITH WHEELS LOCKED WITH RAILS UP X3 AND CALL LIGHT WIHTIN REACH.
--- NOTE | 2023-07-11 22:20 | NUR ---
PATIENT RESTING IN BED WITH ALL LIGHTS OFF AND TV OFF LYING ON RIGHT SIDE WITH NO ACUTE DISTRESS NOTED. ASSESSMENT AND MEDICATION ADMISTRATION COMPLETED AT THIS TIME. PATIENT REFUSED STOOL SOFTENER AND DESRYEL. PATIENT STATED "I HAVE TOLD THEM I DON'T WANT THAT AND I DON'T UNDERSTAND BY THEY KEEP BRINING THAT TO ME." PATIENT INFORMED THAT DOCTOR HAD ORDERED IT AND PRIMARY NURSE COULD ONLY BRING WHAT WAS ORDERED. PATIENT REQUESTED GATORADE AND WAS GIVEN. PATIENT DENIES ANY OTHER NEEDS. VANCOMYCIN INFUSING INTO RIGHT AC WITH NO COMPLICATIONS NOTED. BED IN LOW POSITION WITH WHEELS LOCKED WITH RAILS UP X3 AND CALL LIGHT WITHIN REACH.
[2023-07-12] VITALS (12 sets, daily range): BP systolic 97–163; BP diastolic 66–94; PULSE 73–94; TEMP 97.5–99.1
--- NOTE | 2023-07-12 06:30 | NUR ---
PATIENT RESTED AT INTERVALS. PATIENT CONTINUES TO BE DEPRESSED. PATIENT SCHEDULED FOR AMPUTATION OF SECOND TOE ON LEFT FOOT. PATIENT CONTINUES TO REFUSE FOOD AND CARE FROM NURSING STAFF. PATIENT AGREED TO ENSURE THIS AM. ALL NEEDS MET. BED IN LOW POSITION WITH WHEELS LOCKED WITH RAILS UP X3 AND CALL LIGHT WITHIN REACH.
--- NOTE | 2023-07-12 08:25 | NUR ---
PT BECAME VERY ANGRY WITH THIS NURSE THIS MORNING WHILE TRYING TO ADMINISTER MEDICATION. THIS NURSE BROUGHT UP CONVERSATION REGARDING SURGERY TOMORROW MORNING. PT QUICKLY BECAME ANGRY AND YELLING AT NURSE STATING TWO DIFFERENT DOCTORS CAME IN THIS MORNING AND TOLD HIM TWO DIFFERENT TIME FOR SURGERY, STATING ONE SAID HE WOULD HAVE SURGERY THIS AFTERNOON AT 1630. THIS NURSE STATED SHE HAD NOT HEARD THAT BUT THAT COULD POTENTIALLY OCCUR, TRIED TO STATE SHE HAS NOT BEEN ABLE TO TALK TO THE DOCTOR YET THIS MORNING. PT BECAME EVEN MORE ANGRY CUTTING THE NURSE OFF STATING, "SHUT UP, QUIT TALKING TO ME." STOOD UP IN THE ROOM THROWING PERSONAL BELONGINGS AROUND THEN PUSHED TRAY TABLE AWAY FROM THE BED. PT FLAILING SELF AROUND IN THE ROOM. PT REFUSED SEVERAL OF HIS MORNING MEDICATIONS INCLUDING THE ZYPREXA. PT STATED HE WILL NOT DO ANYTHING ELSE UNTIL HE TALKS TO A DOCTOR BECAUSE, "NO ONE KNOWS WHATS GOING ON AROUND HERE."
[2023-07-12 08:40] LABS: BASO % 0.7 % (0.0-2.0); EOS # 0.1 K/mm3 (0.0-0.7); GRAN # 2.4 K/mm3 (1.4-6.5); GRAN % 53.9 % (42.2-75.2); HEMOGLOBIN 12.2 g/dl (13.5-18.0); LYMPH # 1.4 K/mm3 (1.2-3.4); LYMPH % 32.8 % (20.0-51.0); MEAN CELL VOLUME 84 fl (80.0-100.0); MEAN CORPUSCULAR HEMOGLOBIN 29 pg (27-31); MEAN CORPUSCULAR HGB CONC 34 g/dl (33.0-37.0); MEAN PLATELET VOLUME 9.4 fl (7.4-10.4); MONO # 0.4 K/mm3 (0.1-0.6); MONO % 9.4 % (1.7-9.3); PLATELET COUNT 188 K/mm3 (130-400); RED BLOOD COUNT 4.26 M/mm3 (4.20-5.60); REDCELL DISTRIBUTION WIDTH-CV 12.2 % (11.5-14.5)
[2023-07-12 08:43] LABS: HEMATOCRIT 35.6 % (42.0-52.0)
[2023-07-12 08:48] LABS: CALCIUM 9.3 mg/dL (8.4-10.2); CREATININE, serum 0.87 mg/dL (0.72-1.25); POTASSIUM 4.5 mmol/L (3.5-4.5)
--- NOTE | 2023-07-12 08:50 | NUR ---
Patient was made INPT yesterday. SW collaborated with Physician this AM during rounding to assess Patient. Patient is scheduled for an amputation and will remain INPT at this time.
--- NOTE | 2023-07-12 19:15 | NUR ---
report received from vilma raza rn. pt resting in bed. equal and unlabored breaths noted. no outward signs of pain present. call light in place. all needs met at this time.
--- NOTE | 2023-07-12 22:00 | NUR ---
shift assessment complete, see documentation. pt denies pain. vanc running to right ac without issue. call light in place. all needs met at this time.
[2023-07-13] VITALS (20 sets, daily range): BP systolic 117–178; BP diastolic 74–98; PULSE 71–96; TEMP 97.5–98.1
--- NOTE | 2023-07-13 05:39 | NUR ---
pt up to shower this morning. pt npo since 0000. consent signed. pt denying pain. no drainage noted this morning. bed linens changed. call light in place. all needs met at this time.
[2023-07-13 06:41] LABS: BASO % 0.8 % (0.0-2.0); EOS # 0.1 K/mm3 (0.0-0.7); EOS % 2.5 % (0.0-4.0); GRAN # 1.7 K/mm3 (1.4-6.5); GRAN % 49.2 % (42.2-75.2); HEMOGLOBIN 12.2 g/dl (13.5-18.0); LYMPH # 1.3 K/mm3 (1.2-3.4); LYMPH % 35.9 % (20.0-51.0); MEAN CELL VOLUME 84 fl (80.0-100.0); MEAN CORPUSCULAR HEMOGLOBIN 29 pg (27-31); MEAN CORPUSCULAR HGB CONC 35 g/dl (33.0-37.0); MEAN PLATELET VOLUME 9.3 fl (7.4-10.4); MONO # 0.4 K/mm3 (0.1-0.6); MONO % 11.3 % (1.7-9.3); PLATELET COUNT 168 K/mm3 (130-400); REDCELL DISTRIBUTION WIDTH-CV 12.5 % (11.5-14.5)
[2023-07-13 06:43] LABS: HEMATOCRIT 35.2 % (42.0-52.0)
--- NOTE | 2023-07-13 06:50 | NUR ---
pt off the floor for procedure.
[2023-07-13 06:51] LABS: CALCIUM 9.4 mg/dL (8.4-10.2); CREATININE, serum 1.02 mg/dL (0.72-1.25); POTASSIUM 4.8 mmol/L (3.5-4.5)
--- NOTE | 2023-07-13 07:15 | NUR ---
RECIEVED REPORT FROM NIGHT JASMIN GIBSON.
--- NOTE | 2023-07-13 08:43 | NUR ---
PT ARRIVED TO THE FLOOR FROM PACU AROUND 0830. VSS, NO C/O PAIN, ICE TO LEFT FOOT. CAN MOVE LEFT BIG TOE. IN AN UNPLEASNT MOOD. CALL LIGHT WITHIN REACH .
--- NOTE | 2023-07-13 10:18 | NUR ---
Pt alert and oreinted, flat affect. vss. Doing well post op, no c/o pain. shift assessment complete,rt foor is dry and has scabbing. An open scab on the left hand between the thumb and 1st finger. Complained about the cords being tangled and wanted to put his shirt on. Raised his voice at me when I asked him to wait until the anti biotic was finished before accepting his request ot hold it in his hand. I explained that the iv was sensitive to movement and we had it reinforced that was to make sure to keep it intact while in use. Medicated per emar. Post op vitals being taken. No further needs at this time.Call light within reach.
--- NOTE | 2023-07-13 10:23 | NUR ---
Follow-up visit; Patient using phone, Cooling Pan Tender left a card letting patient know Cooling Pan Tender continues to keep him in her prayers.
--- NOTE | 2023-07-13 20:02 | NUR ---
report received from steve roberts. pt walking the unit with steady gait. pt denies pain at this time. call light in place. all needs met at this time.
--- NOTE | 2023-07-13 22:10 | NUR ---
shift assessment complete, see documentation. pt continues to deny pain. pt drsg cdi without drainage. pt wearing post op shoe while walking. pt continues with steady gait. pt educated on the importance of iv antibiotics and pt has been pleasant and cooperative with cares for me. call light in place. all needs met at this time.
--- NOTE | 2023-07-14 00:34 | NUR ---
pt having some htn tonight. prn 10mg hydralazine given per orders. pt asymptomatic. pt is now c/o pain to the left 2nd toe. prn oxycodone given per orders for 8/10 pain. call light in place. all needs met at this time.
[2023-07-14 01:09] VITALS: BP_SYST 178
[2023-07-14 03:15] VITALS: BP 120/75; PULSE 88; TEMP 97.4
[2023-07-14 04:57] VITALS: BP_SYST 120
[2023-07-14 07:53] VITALS: BP 120/65; PULSE 79; TEMP 97.5
[2023-07-14 08:27] LABS: BASO % 0.3 % (0.0-2.0); EOS # 0.1 K/mm3 (0.0-0.7); GRAN # 4.7 K/mm3 (1.4-6.5); GRAN % 61.2 % (42.2-75.2); HEMOGLOBIN 11.5 g/dl (13.5-18.0); LYMPH # 2.1 K/mm3 (1.2-3.4); LYMPH % 27.6 % (20.0-51.0); MEAN CELL VOLUME 84 fl (80.0-100.0); MEAN CORPUSCULAR HEMOGLOBIN 29 pg (27-31); MEAN CORPUSCULAR HGB CONC 35 g/dl (33.0-37.0); MEAN PLATELET VOLUME 9.2 fl (7.4-10.4); MONO # 0.7 K/mm3 (0.1-0.6); MONO % 9.6 % (1.7-9.3); PLATELET COUNT 182 K/mm3 (130-400); RED BLOOD COUNT 3.97 M/mm3 (4.20-5.60); REDCELL DISTRIBUTION WIDTH-CV 12.4 % (11.5-14.5)
[2023-07-14 08:33] LABS: HEMATOCRIT 33.2 % (42.0-52.0)
[2023-07-14 08:42] LABS: CALCIUM 9.2 mg/dL (8.4-10.2); CREATININE, serum 0.98 mg/dL (0.72-1.25); POTASSIUM 4.2 mmol/L (3.5-4.5)
[2023-07-14] MEDS ORDERED: ROXICODONE 55 MG/TAB PO (08:51)
[2023-07-14] MEDS ORDERED: TYLENOL 325MG325 MG PO (08:51)
[2023-07-14] MEDS ORDERED: EFFEXOR XR37.5 MG/CA PO (08:51)
[2023-07-14] MEDS ORDERED: ZYPREXA10 MG PO ×2 (08:53→08:59)
[2023-07-14 09:00] VITALS: BP_SYST 120
[2023-07-14] MEDS ORDERED: BACTRIM DS 8001 TAB PO (09:32)
[2023-07-14 11:41] VITALS: BP 160/88; PULSE 93; TEMP 97.7
== END 2023-07-14 12:46 | disposition home or self-care (01) | DRG 617 ==
LOC: COL.ER 20:20 → SURG 22:37
PROVIDERS: Emergency Medicine; Physician Assistant; ADMIT Hospitalist
PROC: 0Y6S0Z1 Detachment at Left 2nd Toe, High, Open Approach (ICD-10-PCS; principal; 2023-07-08)
DX: E11.69 Type 2 diabetes mellitus with other specified complication (principal); M86.8X7 Other osteomyelitis, ankle and foot; E11.621 Type 2 diabetes mellitus with foot ulcer; Z79.4 Long term (current) use of insulin; E87.5 Hyperkalemia; E83.42 Hypomagnesemia; E78.5 Hyperlipidemia, unspecified; E86.0 Dehydration; I10 Essential (primary) hypertension; K21.9 Gastro-esophageal reflux disease without esophagitis; F43.10 Post-traumatic stress disorder, unspecified; F32.A Depression, unspecified; F12.99 Cannabis use, unspecified with unspecified cannabis-induced disorder
CPT/HCPCS: J0360; J0665; J0690; J0692; J0696; J1100; J1644; J1815; J2250; J2405; J2704; J3010; J3370; J3475; J7030; J7050; Q3014

== ENCOUNTER 2023-09-07 09:07 | Emergency (ER) | payer MEDICAID ==
[~2023-09-07] VITALS: Ht 172.7 cm; Wt 90.9 kg
[~2023-09-07 09:07] MED LIST changes: +EFFEXOR XR37.5 MG/CA PO; +INSULIN LI100 UNIT/2 SQ; +PEPCID 20MG TAB20 MG PO; +TYLENOL 325MG325 MG PO; +ZYPREXA10 MG PO
[2023-09-07] MEDS ORDERED: BACTRIM DS 8001 TAB PO (10:20)
[2023-09-07 10:35] VITALS: BP 165/101; PULSE 97; TEMP 97.5
== END 2023-09-07 10:35 | disposition home or self-care (01) ==
LOC: COL.ER 09:07
DX: L03.012 Cellulitis of left finger (principal); E11.9 Type 2 diabetes mellitus without complications; F17.200 Nicotine dependence, unspecified, uncomplicated; Z79.4 Long term (current) use of insulin; Z89.029 Acquired absence of unspecified finger(s); Z89.429 Acquired absence of other toe(s), unspecified side

== ENCOUNTER 2024-01-31 21:25 | Emergency (ER) | payer MEDICAID ==
[~2024-01-31] VITALS: Ht 175.3 cm; Wt 93.2 kg
[2024-01-31 21:36] VITALS: TEMP 98.5
[2024-01-31] MEDS ORDERED: diphenhydrAMINE 50 MG/ML 1 ML VIAL IV ONE (22:00)
[2024-01-31] MEDS ORDERED: NS 1,000 ML IV ONE ×4 (22:00→23:45)
[2024-01-31 22:09] LABS: BASO % 0.3 % (0.0-2.0); EOS % 0.1 % (0.0-4.0); GRAN # 9.5 K/mm3 (1.4-6.5); GRAN % 81.9 % (42.2-75.2); HEMOGLOBIN 14.3 g/dl (13.5-18.0); LYMPH # 1.5 K/mm3 (1.2-3.4); LYMPH % 12.7 % (20.0-51.0); MEAN CELL VOLUME 82 fl (80.0-100.0); MEAN CORPUSCULAR HEMOGLOBIN 29 pg (27-31); MEAN CORPUSCULAR HGB CONC 35 g/dl (33.0-37.0); MEAN PLATELET VOLUME 9.8 fl (7.4-10.4); MONO # 0.5 K/mm3 (0.1-0.6); MONO % 4.6 % (1.7-9.3); PLATELET COUNT 251 K/mm3 (130-400); REDCELL DISTRIBUTION WIDTH-CV 12.8 % (11.5-14.5)
[2024-01-31 22:25] LABS: ALANINE AMINOTRANSFERASE 22 U/L (0-55); ALBUMIN 4.4 g/dL (3.5-5.0); ALKALINE PHOSPHATASE 92 U/L (40-150); ANION GAP 22 mmol/L (7-16); AST,SGOT 14 U/L (5-34); BILIRUBIN,TOTAL 1.6 mg/dL (0.2-1.2); BLOOD UREA NITROGEN 41 mg/dL (9-21); CHLORIDE 90 mEq/L (98-107); CREATININE, serum 1.75 mg/dL (0.72-1.25); LIPASE 15 U/L (8-78); POTASSIUM 5.2 mEq/L (3.5-4.5); SODIUM 130 mEq/L (136-145); TOTAL PROTEIN 8.6 g/dl (6.2-8.1)
[2024-01-31 22:28] LABS: GLUCOSE 644 mg/dL (70-99)
[2024-01-31 22:30] LABS: ACETONE,SERUM SMALL
[2024-01-31] MEDS ORDERED: Haloperidol Lactate 5 MG/ML VIAL IV ONE (22:30)
[2024-01-31] MEDS ORDERED: Iohexol 300 - 100 ML VIAL IV ONE (23:03)
[2024-01-31] MEDS ORDERED: NS 50 ML IV ONE (23:06)
[2024-01-31] MEDS ORDERED: Insulin Regular Human (NovoLIN R/HumuLIN R) SQ ONE (23:45)
[2024-02-01 01:19] LABS: POTASSIUM 4.6 mEq/L (3.5-4.5)
[2024-02-01] MEDS ORDERED: Promethazine 25 MG TAB PO ONE (01:30)
[2024-02-01 01:34] LABS: COLLECTION METHOD CLEAN CATCH
[2024-02-01 01:46] LABS: CREATININE, serum 1.34 mg/dL (0.72-1.25)
[2024-02-01 01:47] LABS: URINE APPEARANCE CLEAR (CLEAR/HAZY); URINE BLOOD TRACE (NEGATIVE); URINE COLOR YELLOW (YELLOW); URINE GLUCOSE 3+ (NEGATIVE); URINE KETONE 2+ (NEGATIVE); URINE NITRATE NEGATIVE (NEGATIVE); URINE PROTEIN(semi-quant) 1+ (NEGATIVE); URINE UROBILINOGEN 0.2 E.U/dL (0.2-1.0)
[2024-02-01] MEDS ORDERED: PHENERGAN 25 TA25 MG PO (01:55)
[2024-02-01 02:00] VITALS: BP 137/75; PULSE 88
[2024-02-01] MEDS ORDERED: Home Promethazine 25 MG #2 TAB/PACK PO ONE (02:15)
== END 2024-02-01 02:22 | disposition home or self-care (01) ==
LOC: COL.ER 21:25
PROVIDERS: Emergency Medicine
DX: R11.2 Nausea with vomiting, unspecified (principal); E86.0 Dehydration; R10.84 Generalized abdominal pain; E11.9 Type 2 diabetes mellitus without complications; Z88.8 Allergy status to other drugs, medicaments and biological substances; Z79.4 Long term (current) use of insulin
CPT/HCPCS: J1200; J1630; J1815; J2765; J7030; Q9967

== ENCOUNTER 2024-05-16 18:26 | Emergency (ER) | payer SELFPAY ==
[~2024-05-16] VITALS: Ht 172.7 cm; Wt 95.5 kg
[2024-05-16 18:31] VITALS: TEMP 97.7
[2024-05-16 20:22] LABS: BASO % 0.3 % (0.0-2.0); EOS # 0.1 K/mm3 (0.0-0.7); EOS % 1.6 % (0.0-4.0); GRAN # 3.6 K/mm3 (1.4-6.5); HEMOGLOBIN 12.4 g/dl (13.5-18.0); LYMPH # 1.8 K/mm3 (1.2-3.4); LYMPH % 29.9 % (20.0-51.0); MEAN CELL VOLUME 83 fl (80.0-100.0); MEAN CORPUSCULAR HEMOGLOBIN 30 pg (27-31); MEAN CORPUSCULAR HGB CONC 35 g/dl (33.0-37.0); MEAN PLATELET VOLUME 8.9 fl (7.4-10.4); MONO # 0.5 K/mm3 (0.1-0.6); MONO % 8.9 % (1.7-9.3); PLATELET COUNT 204 K/mm3 (130-400); REDCELL DISTRIBUTION WIDTH-CV 11.9 % (11.5-14.5)
[2024-05-16 20:38] LABS: ALBUMIN 3.8 g/dL (3.5-5.0); BILIRUBIN,TOTAL 0.6 mg/dL (0.2-1.2); CALCIUM 10.2 mg/dL (8.4-10.2); CREATININE, serum 1.19 mg/dL (0.72-1.25); POTASSIUM 4.7 mEq/L (3.5-4.5); TOTAL PROTEIN 7.7 g/dl (6.2-8.1)
[2024-05-16 20:43] LABS: C-REACTIVE PROTEIN 1.25 mg/dL (0.00-0.50)
[2024-05-16] MEDS ORDERED: DOXYCYCLINE 10100 MG PO (21:34)
[2024-05-16] MEDS ORDERED: Doxycycline Monohydrate 100 MG CAP PO ONE (21:45)
[2024-05-16 21:56] VITALS: BP 170/105; PULSE 98
== END 2024-05-16 22:00 | disposition home or self-care (01) ==
LOC: COL.ER 18:26
PROVIDERS: Nurse Practitioner
DX: S91.102A Unspecified open wound of left great toe without damage to nail, initial encounter (principal); S91.105A Unspecified open wound of left lesser toe(s) without damage to nail, initial encounter; I10 Essential (primary) hypertension; Z89.422 Acquired absence of other left toe(s); W22.03XA Walked into furniture, initial encounter

== ENCOUNTER 2024-05-29 15:08 | Emergency (ER) | payer SELFPAY ==
[~2024-05-29] VITALS: Ht 172.7 cm; Wt 95.5 kg
[2024-05-29 15:20] VITALS: TEMP 98.6
[2024-05-29] MEDS ORDERED: Insulin Regular Human (NovoLIN R/HumuLIN R) IV ONE (16:00)
[2024-05-29] MEDS ORDERED: LR 1,000 ML IV ONE (16:00)
[2024-05-29 16:23] LABS: BASO % 0.7 % (0.0-2.0); EOS # 0.1 K/mm3 (0.0-0.7); EOS % 1.8 % (0.0-4.0); GRAN # 2.2 K/mm3 (1.4-6.5); GRAN % 51.6 % (42.2-75.2); LYMPH # 1.6 K/mm3 (1.2-3.4); LYMPH % 37.4 % (20.0-51.0); MEAN CELL VOLUME 87 fl (80.0-100.0); MEAN CORPUSCULAR HEMOGLOBIN 30 pg (27-31); MEAN CORPUSCULAR HGB CONC 34 g/dl (33.0-37.0); MEAN PLATELET VOLUME 9.6 fl (7.4-10.4); MONO # 0.4 K/mm3 (0.1-0.6); MONO % 8.3 % (1.7-9.3); PLATELET COUNT 157 K/mm3 (130-400); RED BLOOD COUNT 3.71 M/mm3 (4.20-5.60); REDCELL DISTRIBUTION WIDTH-CV 12.7 % (11.5-14.5)
[2024-05-29 16:24] LABS: HEMATOCRIT 32.2 % (42.0-52.0)
[2024-05-29 16:58] LABS: ALBUMIN 3.6 g/dL (3.5-5.0); BILIRUBIN,TOTAL 0.5 mg/dL (0.2-1.2); C-REACTIVE PROTEIN 0.14 mg/dL (0.00-0.50); CALCIUM 9.3 mg/dL (8.4-10.2); CREATININE, serum 1.19 mg/dL (0.72-1.25); POTASSIUM 5.1 mEq/L (3.5-4.5)
[2024-05-29 18:12] VITALS: BP 145/85; PULSE 80
== END 2024-05-29 18:12 | disposition home or self-care (01) ==
LOC: COL.ER 15:08
PROVIDERS: Emergency Medicine
DX: E11.65 Type 2 diabetes mellitus with hyperglycemia (principal); E11.621 Type 2 diabetes mellitus with foot ulcer; L97.529 Non-pressure chronic ulcer of other part of left foot with unspecified severity; T38.3X6A Underdosing of insulin and oral hypoglycemic [antidiabetic] drugs, initial encounter; Z91.148 Patient's other noncompliance with medication regimen for other reason; Z79.4 Long term (current) use of insulin
CPT/HCPCS: J1815; J7120

== ENCOUNTER 2024-06-03 14:31 | Emergency (ER) | payer SELFPAY ==
[~2024-06-03] VITALS: Ht 175.3 cm; Wt 90.9 kg
[2024-06-03 14:34] VITALS: TEMP 97.5
[2024-06-03] MEDS ORDERED: NS 1,000 ML IV ONE ×3 (15:15→19:15)
[2024-06-03 15:40] LABS: BASO % 0.5 % (0.0-2.0); EOS % 0.5 % (0.0-4.0); GRAN # 4.2 K/mm3 (1.4-6.5); GRAN % 67.3 % (42.2-75.2); HEMATOCRIT 40.9 % (42.0-52.0); HEMOGLOBIN 14.4 g/dl (13.5-18.0); LYMPH # 1.4 K/mm3 (1.2-3.4); LYMPH % 21.9 % (20.0-51.0); MEAN CELL VOLUME 82 fl (80.0-100.0); MEAN CORPUSCULAR HEMOGLOBIN 29 pg (27-31); MEAN CORPUSCULAR HGB CONC 35 g/dl (33.0-37.0); MONO # 0.6 K/mm3 (0.1-0.6); MONO % 9.6 % (1.7-9.3); PLATELET COUNT 208 K/mm3 (130-400); RED BLOOD COUNT 4.97 M/mm3 (4.20-5.60); REDCELL DISTRIBUTION WIDTH-CV 12.1 % (11.5-14.5)
[2024-06-03 15:52] LABS: ACETONE,SERUM SMALL
[2024-06-03 15:57] LABS: ALBUMIN 4.2 g/dL (3.5-5.0); BILIRUBIN,TOTAL 1.2 mg/dL (0.2-1.2); C-REACTIVE PROTEIN 0.19 mg/dL (0.00-0.50); CALCIUM 12.1 mg/dL (8.4-10.2); CREATININE, serum 1.47 mg/dL (0.72-1.25); MAGNESIUM 1.6 mg/dL (1.6-2.6); POTASSIUM 4.6 mEq/L (3.5-4.5); TOTAL PROTEIN 8.5 g/dl (6.2-8.1)
[2024-06-03 16:03] LABS: TROPONIN-I 0.02 ng/mL (0.00-0.033)
[2024-06-03 16:09] LABS: ALCOHOL(ethanol),MEDICAL < 10 mg/dL (0-10)
[2024-06-03] MEDS ORDERED: Iohexol 300 - 100 ML VIAL IV ONE (16:40)
[2024-06-03] MEDS ORDERED: NS 100 ML IV SCH (16:41)
[2024-06-03] MEDS ORDERED: droPERidol 2.5 MG/ML 2 ML VIAL IV ONE (17:00)
[2024-06-03] MEDS ORDERED: Insulin Regular Human (NovoLIN R/HumuLIN R) IV ONE (17:45)
[2024-06-03] MEDS ORDERED: Pantoprazole 40 MG in NS 10 ML IV ONE (18:00)
[2024-06-03] MEDS ORDERED: Sucralfate Susp 1 GM/10 ML UD PO ONE (18:00)
[2024-06-03] MEDS ORDERED: PHENERGAN 25 TA25 MG PO (19:42)
[2024-06-03 20:42] VITALS: BP 188/112; PULSE 102
== END 2024-06-03 20:42 | disposition home or self-care (01) ==
LOC: COL.ER 14:31
PROVIDERS: Emergency Medicine
DX: R11.2 Nausea with vomiting, unspecified (principal); E11.65 Type 2 diabetes mellitus with hyperglycemia; R10.84 Generalized abdominal pain; R07.9 Chest pain, unspecified; R51.9 Headache, unspecified; Z79.4 Long term (current) use of insulin
CPT/HCPCS: J1790; J1815; J2470; J2765; J7030; Q9967